=== PATIENT | male | born 1970 | race Caucasian/White ===

== ENCOUNTER 2018-04-18 17:51 | Inpatient (IN) | payer MEDICARE, MEDICAID ==
[2018-04-18 20:05] LABS: Hematocrit 45 % (42-52); Hemoglobin 15.3 g/dl (14.0-18.0); Mean Corpuscular HGB Conc 34 g/dl (31-36); Mean Corpuscular Hemoglobin 29 pg (27-31); Mean Corpuscular Volume 84 fL (80-94); Mean Platelet Volume 7.3 fL (7.4-10.4); Platelet Count 409 10^3/ul (150-450); Red Cell Distribution Width 13 % (10.5-15); White Blood Count 11.3 10^3/ul (3.5-10.8)
[2018-04-18 20:19] LABS: Albumin 3.9 g/dL (3.2-5.2); Albumin/Globulin Ratio 1.1 (1-3); BUN/Creatinine Ratio 14.7 (8-20); C Reactive Protein 81.32 mg/L (<8.01); Calcium 9.6 mg/dL (8.6-10.3); Globulin 3.5 g/dL (2-4); Potassium 4.7 mmol/L (3.5-5.0); Total Bilirubin 0.3 mg/dL (0.2-1.0); Total Protein 7.4 g/dL (6.4-8.9)
[2018-04-18] MEDS ORDERED: Piperacillin/Tazobac ADVAN(*) 3.375 GM in NS 0.9% 100 ML* 100 ML IVPB ONE (20:26)
[2018-04-18 20:27] LABS: ABS Basophils 0 10^3/ul (0-0.2); ABS Eosinophils 0.2 10^3/ul (0-0.6); ABS Monocytes 0.8 10^3/ul (0-0.8); ABS Neutrophils 8.1 10^3/ul (1.5-7.7); ABS Nucleated RBC 0 10^3/ul; Eosinophil % 2.2 %; Lymphocyte % 17.7 %; Nucleated Red Blood Cells % 0
[2018-04-18] MEDS ORDERED: Vancomycin(*) 1,000 MG in NS 0.9% 250 ML* 250 ML IVPB ONE (21:01)
[2018-04-18] MEDS ORDERED: Acetaminophen TAB* 325 MG PO PRN (21:03)
[2018-04-18] MEDS ORDERED: Ondansetron INJ* 2 MG/ML VIAL IV PRN (21:03)
[2018-04-18] MEDS ORDERED: Senna TAB PO PRN (21:03)
[2018-04-18] MEDS ORDERED: Al Hydrox/Mg Hydrox/Simet LIQ* 30 ML UDC PO PRN (21:03)
[2018-04-18] MEDS ORDERED: Docusate CAP* 100 MG PO PRN (21:03)
[2018-04-18] MEDS ORDERED: Dextrose 50% Syringe 50 ML* 25 GM/50 ML SYRINGE IV PUSH PRN (21:06)
[2018-04-18] MEDS ORDERED: traMADol TAB* 50 MG PO PRN (21:08)
[2018-04-18] MEDS ORDERED: Vancomycin(*) 0 MG in NS 0.9% 250 ML* 250 ML IVPB SCH (22:00)
[2018-04-18] MEDS: NS 0.9% 1000 ML* 1,000 ML IV SCH (22:58)
[2018-04-18] MEDS: Insulin GLARGINE(*) 1 UNITS UNIT SUBCUT SCH (22:58)
[2018-04-18] MEDS: Heparin VIAL(*) 5000 UNITS/ML VIAL (FIVE THOUSAND) SUBCUT SCH (22:59)
--- NOTE | 2018-04-18 23:00 | HP ---
CC: Jim Strong MD; Infectious Disease, Dr. Lopez; Orthopedic Surgery, Dr. Bai * HISTORY AND PHYSICAL: DATE OF ADMISSION: 04/18/18 TIME OF EVALUATION: 2099 PRIMARY CARE PHYSICIAN: Jim Strong M.D. CHIEF COMPLAINT: Left toe redness, pain, and swelling. HISTORY OF PRESENT ILLNESS: This is a 47-year-old male with a past medical history of diabetes, on insulin, and peripheral vascular disease who presents to the emergency room with worsening fourth toe on the right, redness, swelling , and drainage. The patient states he has a chronic wound on the plantar surface of his right foot that he has followed with Dr. Bai and Dr. Lopez for several years that has been stable. He states on the he noted that the toe was red and swollen and he states it was probably a problem earlier than that. That is when he first noticed it. He called Dr. Lopez's office on the and they started him on Levaquin. He began the Levaquin on the morning of the , but the redness and swelling continued and now it became black, foul smelling with purulent drainage, and he subsequently came to the emergency room for further evaluation. He states he no longer [facility], but follows Dr. Bai for his chronic wound. He denies any fevers; no chills; no nausea, vomiting, or diarrhea; no abdominal pain or shortness of breath; no urinary symptoms. He states his sugars have been well controlled and no issues with them. Otherwise, review of systems is negative. In the emergency room, the patient had labs. He was given Zosyn and referred to the hospital service for further evaluation. PAST MEDICAL HISTORY: 1. Peripheral vascular disease. 2. Diabetes, on insulin. 3. History of poor wound healing with toe amputation on each foot and a chronic plantar wound on his right foot, followed by Dr. Bai and Dr. Lopez. 4. Hypertension. 5. Gout. MEDICATIONS: 1. Levemir 30 mg subcu b.i.d. 2. Metformin 1000 mg p.o. b.i.d. 3. Lisinopril 40 mg p.o. daily. 4. Amlodipine 2.5 mg daily. 5. Indomethacin as needed. 6. Tramadol as needed. ALLERGIES: No known drug allergies. FAMILY HISTORY: Mother at age 67 from complications related to pancreatic cancer. Father's family history is unknown. SOCIAL HISTORY: The patient lives alone. He is unemployed, on disability. He has been cutting back on his smoking significantly. He states he smoked as much as 4 packs per day, now he is less than a pack per day. He has been smoking for almost 30 years. Rare alcohol use. He has no health care proxy at this time. He needs to think about it. Code status is full code. REVIEW OF SYSTEMS: A 14-point review of systems as mentioned in the HPI; otherwise, negative. PHYSICAL EXAMINATION GENERAL: In no acute distress, resting comfortably. VITAL SIGNS: Temp is 98.9, pulse rate 79, respiratory rate 15, oxygen saturation 99% on room air, and blood pressure 146/74. HEENT: Head: Normocephalic. Pupils: Equal, round, and reactive; anicteric. Oropharynx: Mucous membranes moist. NECK: No lymphadenopathy. RESPIRATORY: Clear to auscultation. No wheezes, rhonchi, or rales. CARDIAC: Regular rate and rhythm. Soft systolic murmur heard throughout. ABDOMEN: Soft, nontender, and nondistended. EXTREMITIES: The patient with his right lower extremity on the plantar surface has exposed fascia, about 6 x 4, circular open wound that has no surrounding erythema or drainage, that has some secondary granulation tissue at the edges. His fourth digit is necrotic, erythematous with purulent drainage, foul smelling with redness streaking up to the dorsum of his foot with some minimal edema. Pulses are palpated, able to move his extremities. NEUROLOGIC: Alert and oriented x3. No gross focal neurologic deficits. LABORATORY DATA: White count 11.3, hemoglobin 15.3, hematocrit 45, platelets 409. Sodium 136, potassium 4.7, chloride 102, bicarb 26, BUN 15, creatinine 102 , glucose 106, lactic acid 1.6, CRP is 81. ASSESSMENT: This is a 47-year-old male with a past medical history of chronic wounds with amputations in the past, with diabetes and peripheral vascular disease, who presents to the emergency room with worsening right fourth digit redness, swelling, and purulent drainage. 1. Fourth right toe redness, swelling, and drainage. Assessment: Concern for cellulitis with necrotic tissue. His plantar wound looks relatively healthy, but there is a question if these wounds have some sinus tract. Plan: We will switch him to cefepime 2 g IV b.i.d. We will start him on vancomycin and Flagyl. He did have a swab done down in the emergency room and we will follow up on that. We will consult Dr. Lopez and I spoke with Dr. Saleh, who is going to relay the message to Dr. Bai to see if he can evaluate the patient. I suspect he may need amputation. We will also order ABIs to look for any vascular disease that can be intervened upon. We will also place him on gentle IV fluids. 2. Diabetes. Per the patient, it is relatively well controlled. We will check a hemoglobin A1c, keep him on Lantus, hold his metformin, and place him on a lispro sliding scale. CHRONIC MEDICAL PROBLEMS: 1. Hypertension: Continue his lisinopril and amlodipine. 2. Chronic pain: Continue his tramadol as needed. 3. Fluids, electrolytes, and nutrition: Diabetic diet with gentle IV fluids. 4. DVT prophylaxis: The patient scores moderate risk. I will place him on heparin subcu t.i.d. 5. Code status: Full code. PATIENT TIME: Greater than 50 minutes spent doing the history and physical, greater than half the time spent in direct patient contact. [id number]/CPS #: [id number] MTDD
[2018-04-18] MEDS: traMADol TAB* 50 MG PO PRN (23:09)
[2018-04-19] MEDS ORDERED: Vancomycin per Pharmacy* NOTE FOLLOW UP PRN (00:05)
[2018-04-19] MEDS: metroNIDAZOLE IV 500 MG/100ML* 500 MG/100 ML BAG IVPB SCH ×3 (00:49→23:28)
--- NOTE | 2018-04-19 02:44 | ED ---
Lower Extremity - HPI Summary HPI Summary: Pt with hx of chronic DM foot ulcer under ball of right foot c/o new onset purulent d/c, redness and black tissue to 4th digit of rt foot x 2 days. Pt on levaquin x [address] Lynn. Pt wound also followed by followed by orthopedics Dr. Aragon, who last saw wound 4 weeks ago. Patient denies fever, cough, sore throat, CP, SOB, N/V/D, abdominal pain, change in urine, change in BM. Medical history is DM, HTN. . - History of Current Complaint Chief Complaint: EDExtremityLower Stated Complaint: POSS FOOT INF Time Seen by Provider: 04/18/18 18:50 Hx Obtained From: Patient Mechanism Of Injury: Other Onset/Duration: Still Present Severity Initially: Mild Severity Currently: Mild Pain Intensity: 2 Pain Scale Used: 0-10 Numeric Timing: Intermittent Location: Is Discrete @ Character Of Pain: Dull Associated Signs And Symptoms: Positive: Redness Aggravating Factor(s): Standing, Ambulation Alleviating Factor(s): Rest Able to Bear Weight: Yes - Allergies/Home Medications Allergies/Adverse Reactions: Allergies Allergy/AdvReac Type Severity Reaction Status Date / Time No Known Allergies Allergy Verified 03/19/14 13:24 PMH/Surg Hx/FS Hx/Imm Hx Endocrine/Hematology History: Reports: Hx Diabetes - metformin Cardiovascular History: Reports: Hx Hypertension Denies: Hx Pacemaker/ICD Respiratory History: Denies: Hx Asthma History: Denies: Hx Dialysis, Hx Renal Disease Sensory History: Denies: Hx Contacts or Glasses, Hx Hearing Aid Opthamlomology History: Denies: Hx Contacts or Glasses EENT History: Denies: Hx Deafness Psychiatric History: Denies: Hx Autism, Hx Panic Disorder - Surgical History Surgery Procedure, Year, and Place: carpal tunnel bilat; left knee arthroscopy; cataract right eye ; tubes in ears as a child ; tonsils ; bilateral amputation to a toe ; Infectious Disease History: Yes Infectious Disease History: Denies: Hx Clostridium Difficile, Hx Hepatitis, Hx Human Immunodeficiency Virus (HIV), Hx of Known/Suspected MRSA, Hx Shingles, Hx Tuberculosis, Hx Known/ Suspected VRE, Hx Known/Suspected VRSA, History Other Infectious Disease, Traveled Outside the [place] in Last 30 Days - Family History Known Family History: Positive: Unknown - Social History Alcohol Use: Rare Substance Use Type: Reports: None Smoking Status (MU): Light Every Day Tobacco Smoker Amount Used/How Often: 1 ppd Have You Smoked in the Last Year: No Review of Systems Constitutional: Negative Eyes: Negative ENT: Negative Cardiovascular: Negative Respiratory: Negative Gastrointestinal: Negative Genitourinary: Negative Musculoskeletal: Other Skin: Other Neurological: Negative Psychological: Normal All Other Systems Reviewed And Are Negative: Yes Physical Exam - Summary Physical Exam Summary: new wound involves Purulent discharge, redness, necrosis noted to fourth digit of right foot. chronic foot ulcer under ball of right foot appears clean and dry. Sensation intact distally on the fourth digit. Third toe of right foot removed ain prior amputation. Triage Information Reviewed: Yes Vital Signs On Initial Exam: Initial Vitals Temp Pulse Resp BP Pulse Ox 98.9 F 79 15 146/74 99 04/18/18 18:13 04/18/18 18:13 04/18/18 18:13 04/18/18 18:13 04/18/18 18:13 Vital Signs Reviewed: Yes Appearance: Positive: Well-Appearing Skin: Positive: Warm Head/Face: Positive: Normal Head/Face Inspection Eyes: Positive: Normal Neck: Positive: Supple Respiratory/Lung Sounds: Positive: Clear to Auscultation Cardiovascular: Positive: Normal Abdomen Description: Positive: Nontender Musculoskeletal: Positive: Normal Neurological: Positive: Normal Psychiatric: Positive: Normal AVPU Assessment: Alert - Val Coma Scale Best Eye Response: 4 - Spontaneous Best Motor Response: 6 - Obeys Commands Best Verbal Response: 5 - Oriented Coma Scale Total: 15 Diagnostics - Vital Signs Vital Signs Temp Pulse Resp BP Pulse Ox 04/18/18 18:13 98.9 F 79 15 146/74 99 - Laboratory Lab Results: Lab Results 04/18/18 04/18/18 04/18/18 Range/Units 19:51 19:51 19:51 WBC 11.3 H (3.5-10.8) 10^3/ul RBC 5.30 (4.00-5.40) 10^6/ul Hgb 15.3 (14.0-18.0) g/dl Hct 45 (42-52) % MCV 84 (80-94) fL MCH 29 (27-31) pg MCHC 34 (31-36) g/dl RDW 13 (10.5-15) % Plt Count 409 (150-450) 10^3/ul MPV 7.3 L (7.4-10.4) fL Neut % (Auto) 72.2 % Lymph % (Auto) 17.7 % [place] % (Auto) 7.5 % Eos % (Auto) 2.2 % Baso % (Auto) 0.4 % Absolute Neuts (auto) 8.1 H (1.5-7.7) 10^3/ul Absolute Lymphs (auto) 2.0 (1.0-4.8) 10^3/ul Absolute Monos (auto) 0.8 (0-0.8) 10^3/ul Absolute Eos (auto) 0.2 (0-0.6) 10^3/ul Absolute Basos (auto) 0 (0-0.2) 10^3/ul Absolute Nucleated RBC 0 10^3/ul Nucleated RBC % 0 Sodium 136 (135-145) mmol/L Potassium 4.7 (3.5-5.0) mmol/L Chloride 102 (101-111) mmol/L Carbon Dioxide 26 (22-32) mmol/L Anion Gap 8 (2-11) mmol/L BUN 15 (6-24) mg/dL Creatinine 1.02 (0.67-1.17) mg/dL Est GFR ( Amer) 94.3 (>60) Est GFR (Non-Af Amer) 78.0 (>60) BUN/Creatinine Ratio 14.7 (8-20) Glucose 106 H (70-100) mg/dL Hemoglobin A1c (4.0-5.6) % Lactic Acid 1.6 (0.5-2.0) mmol/L Calcium 9.6 (8.6-10.3) mg/dL Total Bilirubin 0.30 (0.2-1.0) mg/dL AST 13 (13-39) U/L ALT 19 (7-52) U/L Alkaline Phosphatase 86 (34-104) U/L C-Reactive Protein 81.32 H (<8.01) mg/L Total Protein 7.4 (6.4-8.9) g/dL Albumin 3.9 (3.2-5.2) g/dL Globulin 3.5 (2-4) g/dL Albumin/Globulin Ratio 1.1 (1-3) 12/20/18 Range/Units 19:51 WBC (3.5-10.8) 10^3/ul RBC (4.00-5.40) 10^6/ul Hgb (14.0-18.0) g/dl Hct (42-52) % MCV (80-94) fL MCH (27-31) pg MCHC (31-36) g/dl RDW (10.5-15) % Plt Count (150-450) 10^3/ul MPV (7.4-10.4) fL Neut % (Auto) % Lymph % (Auto) % [place] % (Auto) % Eos % (Auto) % Baso % (Auto) % Absolute Neuts (auto) (1.5-7.7) 10^3/ul Absolute Lymphs (auto) (1.0-4.8) 10^3/ul Absolute Monos (auto) (0-0.8) 10^3/ul Absolute Eos (auto) (0-0.6) 10^3/ul Absolute Basos (auto) (0-0.2) 10^3/ul Absolute Nucleated RBC 10^3/ul Nucleated RBC % Sodium (135-145) mmol/L Potassium (3.5-5.0) mmol/L Chloride (101-111) mmol/L Carbon Dioxide (22-32) mmol/L Anion Gap (2-11) mmol/L BUN (6-24) mg/dL Creatinine (0.67-1.17) mg/dL Est GFR ( Amer) (>60) Est GFR (Non-Af Amer) (>60) BUN/Creatinine Ratio (8-20) Glucose (70-100) mg/dL Hemoglobin A1c 8.8 H (4.0-5.6) % Lactic Acid (0.5-2.0) mmol/L Calcium (8.6-10.3) mg/dL Total Bilirubin (0.2-1.0) mg/dL AST (13-39) U/L ALT (7-52) U/L Alkaline Phosphatase (34-104) U/L C-Reactive Protein (<8.01) mg/L Total Protein (6.4-8.9) g/dL Albumin (3.2-5.2) g/dL Globulin (2-4) g/dL Albumin/Globulin Ratio (1-3) Result Diagrams: 04/18/18 19:51 04/18/18 19:51 Lab Statement: Any lab studies that have been ordered have been reviewed, and results considered in the medical decision making process. Lower Extremity Course/Dx - Course Course Of Treatment: Pt with hx of chronic DM foot ulcer under ball of right foot c/o new onset purulent d/c, redness and black tissue to 4th digit of rt foot x 2 days. Pt on levaquin x [address] Lynn. Pt wound also followed by followed by orthopedics Dr. Aragon, who last saw wound 4 weeks ago. Patient denies fever, cough, sore throat, CP, SOB, N/V/D, abdominal pain, change in urine, change in BM. Medical history is DM, HTN. . Physical exam: new wound involves Purulent discharge, redness, necrosis noted to fourth digit of right foot. chronic foot ulcer under ball of right foot appears clean and dry. Sensation intact distally on the fourth digit. Third toe of right foot removed ain prior amputation. Vital signs within normal limits. Elevated WBC 11.2. CRP 81. Labs otherwise unremarkable. xray foot has no acute fracture, possible osteomyelitis. Will be read by radiology in am. started on zosyn here in ED. admitted to hospitalist in stable condition for further eval. - Diagnoses Provider Diagnoses: Failure of outpatient treatment, Diabetic foot infection Discharge - Sign-Out/Discharge Documenting (check all that apply): Patient Departure - Discharge Plan Condition: Stable Disposition: ADMITTED TO [facility] - Billing Disposition and Condition Condition: STABLE Disposition: Admitted to [facility]
[2018-04-19] MEDS: Vancomycin(*) 1,250 MG in NS 0.9% 250 ML* 250 ML IVPB SCH ×3 (04:02→21:02)
[2018-04-19] MEDS: Heparin VIAL(*) 5000 UNITS/ML VIAL (FIVE THOUSAND) SUBCUT SCH ×4 (05:33→21:20)
[2018-04-19] MEDS: traMADol TAB* 50 MG PO PRN ×3 (05:34→21:16)
[2018-04-19] MEDS: Cefepime 2 GM in Dextrose(*) 2 GM/50 ML BAG IV SCH ×2 (05:57→18:19)
[2018-04-19 05:58] LABS: ABS Basophils 0 10^3/ul (0-0.2); ABS Eosinophils 0.2 10^3/ul (0-0.6); ABS Lymphocytes 2.4 10^3/ul (1.0-4.8); ABS Monocytes 1.3 10^3/ul (0-0.8); ABS Neutrophils 6.4 10^3/ul (1.5-7.7); ABS Nucleated RBC 0 10^3/ul; Eosinophil % 2.3 %; Hematocrit 39 % (42-52); Hemoglobin 13.3 g/dl (14.0-18.0); Lymphocyte % 23.3 %; Mean Corpuscular HGB Conc 35 g/dl (31-36); Mean Corpuscular Hemoglobin 29 pg (27-31); Mean Corpuscular Volume 85 fL (80-94); Mean Platelet Volume 7.3 fL (7.4-10.4); Nucleated Red Blood Cells % 0; Platelet Count 333 10^3/ul (150-450); Red Blood Count 4.54 10^6/ul (4.00-5.40); Red Cell Distribution Width 13 % (10.5-15); White Blood Count 10.4 10^3/ul (3.5-10.8)
[2018-04-19 06:15] LABS: BUN/Creatinine Ratio 14.5 (8-20); Calcium 8.8 mg/dL (8.6-10.3); EGFR Non-African American 66.5 (>60); Potassium 4.4 mmol/L (3.5-5.0)
[2018-04-19] MEDS: Insulin LISPRO* 1 UNITS UNIT SUBCUT SCH ×3 (09:02→18:18)
[2018-04-19] MEDS: Insulin GLARGINE(*) 1 UNITS UNIT SUBCUT SCH ×2 (09:03→21:01)
[2018-04-19] MEDS: amLODIPine TAB* 5 MG PO SCH (09:03)
[2018-04-19] MEDS: Lisinopril TAB* 10 MG PO SCH (09:03)
--- NOTE | 2018-04-19 10:12 | PN ---
Progress Note - Progress Note Date of Service: 04/18/18 Note: Pt. admitted last night for diabetic foot infection. Final radiology read today is constant with osteomyelitis. Pt. was admitted and receiving IV antibx. No change in treatment needed.
[2018-04-19] MEDS ORDERED: Gadoteridol* (CONTRAST) 279.3 MG/ML 10 ML IV ONE (14:31)
[2018-04-19] MEDS: NS 0.9% 1000 ML* 1,000 ML IV SCH (15:52)
--- NOTE | 2018-04-19 17:14 | PN ---
Subjective Date of Service: 04/19/18 Interval History: Pt is feeling well. He has pain 5/10 intermittently in the R foot. He continues to notice foul smell from the foot. No diarrhea. He would really like to be able to go home for Jose Armando. Objective Active Medications: Acetaminophen (Tylenol Tab*) 650 mg PO Q4H PRN PRN Reason: FEVER/PAIN Al Hydrox/Mg Hydrox/Simethicone (Maalox Plus*) 30 ml PO Q6H PRN PRN Reason: INDIGESTION Amlodipine Besylate (Norvasc Tab*) 2.5 mg PO DAILY [facility] Last Admin: 04/19/18 09:03 Dose: 2.5 mg Dextrose (D50w Syringe 50 Ml*) 12.5 gm IV PUSH .FOR FS < 60 - SS PRN PRN Reason: FS < 60 Docusate Sodium (Colace Cap*) 100 mg PO BID PRN PRN Reason: CONSTIPATION Heparin Sodium (Porcine) (Heparin Vial(*)) 5,000 units SUBCUT Q8HR [facility] Last Admin: 04/19/18 12:43 Dose: Not Given Cefepime HCl (Maxipime 2 Gm In Dextrose Duplex (*)) 2 gm in 50 mls @ 100 mls/ hr IV Q12H [facility] Last Admin: 04/19/18 05:57 Dose: 100 mls/hr Metronidazole/Sodium Chloride (Flagyl 500 Mg Ivpb*) 500 mg in 100 mls @ 100 mls /hr IVPB Q12H [facility] Last Admin: 04/19/18 09:19 Dose: 100 mls/hr Sodium Chloride (Ns 0.9% 1000 Ml*) 1,000 mls @ 100 mls/hr IV PER RATE [facility] Last Admin: 04/19/18 15:52 Dose: 100 mls/hr Vancomycin HCl 1,250 mg/ (Sodium Chloride) 250 mls @ 166.667 mls/hr IVPB Q8H [facility] Last Admin: 04/19/18 12:10 Dose: 166.667 mls/hr Insulin Glargine (Lantus(*)) 30 units SUBCUT BID [facility] Last Admin: 04/19/18 09:03 Dose: 30 units Insulin Human Lispro (Humalog*) 0 units SUBCUT AC [facility]; Protocol Last Admin: 04/19/18 12:41 Dose: 7 units Lisinopril (Prinivil Tab*) 40 mg PO DAILY [facility] Last Admin: 04/19/18 09:03 Dose: 40 mg Ondansetron HCl (Zofran Inj*) 4 mg IV Q4H PRN PRN Reason: NAUSEA/VOMITING Pharmacy Consult (Vancomycin Per Pharmacy*) 1 note FOLLOW UP . PRN PRN Reason: PER PROTOCOL Pharmacy Profile Note (Vancomycin Trough Check) 1 note FOLLOW UP .ENTER TIME ONE Stop: 04/20/18 11:31 Senna (Senokot Tab*) 1 tab PO BID PRN PRN Reason: CONSTIPATION Tramadol HCl (Ultram*) 100 mg PO Q6HR PRN PRN Reason: PAIN Last Admin: 04/19/18 12:41 Dose: 100 mg Vital Signs - 8 hr 04/19/18 04/19/18 04/19/18 11:26 12:41 15:11 Temperature 98.4 F Pulse Rate 70 Respiratory 17 16 16 Rate Blood Pressure 128/50 (mmHg) O2 Sat by Pulse 98 Oximetry 04/19/18 15:19 Temperature 97.0 F Pulse Rate 67 Respiratory 16 Rate Blood Pressure 139/66 (mmHg) O2 Sat by Pulse 94 Oximetry Oxygen Devices in Use Now: None Appearance: Middle aged male sitting up in bed, NAD Eyes: No Scleral Icterus Ears/Nose/Mouth/Throat: Mucous Membranes Moist Respiratory: Symmetrical Chest Expansion and Respiratory Effort, Clear to Auscultation Cardiovascular: NL Sounds; No Murmurs; No JVD, RRR, No Edema Abdominal: NL Sounds; No Tenderness; No Distention Extremities: No Clubbing, Cyanosis Skin: - - wound to plantar surface of R foot with granulation tissue noted, 3rd toe (formerly the 4th toe but the 3rd was amputated) is purple with the medial aspect black, there is purulent drainage noted from the proximal end of the toe Neurological: Alert and Oriented x 3 Result Diagrams: 04/19/18 05:27 04/20/18 06:38 Additional Lab and Data: Lab Results 04/18/18 04/18/18 04/18/18 Range/Units 19:51 19:51 19:51 WBC 11.3 H (3.5-10.8) 10^3/ul RBC 5.30 (4.00-5.40) 10^6/ul Hgb 15.3 (14.0-18.0) g/dl Hct 45 (42-52) % MCV 84 (80-94) fL MCH 29 (27-31) pg MCHC 34 (31-36) g/dl RDW 13 (10.5-15) % Plt Count 409 (150-450) 10^3/ul MPV 7.3 L (7.4-10.4) fL Neut % (Auto) 72.2 % Lymph % (Auto) 17.7 % [place] % (Auto) 7.5 % Eos % (Auto) 2.2 % Baso % (Auto) 0.4 % Absolute Neuts (auto) 8.1 H (1.5-7.7) 10^3/ul Absolute Lymphs (auto) 2.0 (1.0-4.8) 10^3/ul Absolute Monos (auto) 0.8 (0-0.8) 10^3/ul Absolute Eos (auto) 0.2 (0-0.6) 10^3/ul Absolute Basos (auto) 0 (0-0.2) 10^3/ul Absolute Nucleated RBC 0 10^3/ul Nucleated RBC % 0 Sodium 136 (135-145) mmol/L Potassium 4.7 (3.5-5.0) mmol/L Chloride 102 (101-111) mmol/L Carbon Dioxide 26 (22-32) mmol/L Anion Gap 8 (2-11) mmol/L BUN 15 (6-24) mg/dL Creatinine 1.02 (0.67-1.17) mg/dL Est GFR ( Amer) 94.3 (>60) Est GFR (Non-Af Amer) 78.0 (>60) BUN/Creatinine Ratio 14.7 (8-20) Glucose 106 H (70-100) mg/dL Hemoglobin A1c (4.0-5.6) % Lactic Acid 1.6 (0.5-2.0) mmol/L Calcium 9.6 (8.6-10.3) mg/dL Total Bilirubin 0.30 (0.2-1.0) mg/dL AST 13 (13-39) U/L ALT 19 (7-52) U/L Alkaline Phosphatase 86 (34-104) U/L C-Reactive Protein 81.32 H (<8.01) mg/L Total Protein 7.4 (6.4-8.9) g/dL Albumin 3.9 (3.2-5.2) g/dL Globulin 3.5 (2-4) g/dL Albumin/Globulin Ratio 1.1 (1-3) 04/18/18 Range/Units 19:51 WBC (3.5-10.8) 10^3/ul RBC (4.00-5.40) 10^6/ul Hgb (14.0-18.0) g/dl Hct (42-52) % MCV (80-94) fL MCH (27-31) pg MCHC (31-36) g/dl RDW (10.5-15) % Plt Count (150-450) 10^3/ul MPV (7.4-10.4) fL Neut % (Auto) % Lymph % (Auto) % [place] % (Auto) % Eos % (Auto) % Baso % (Auto) % Absolute Neuts (auto) (1.5-7.7) 10^3/ul Absolute Lymphs (auto) (1.0-4.8) 10^3/ul Absolute Monos (auto) (0-0.8) 10^3/ul Absolute Eos (auto) (0-0.6) 10^3/ul Absolute Basos (auto) (0-0.2) 10^3/ul Absolute Nucleated RBC 10^3/ul Nucleated RBC % Sodium (135-145) mmol/L Potassium (3.5-5.0) mmol/L Chloride (101-111) mmol/L Carbon Dioxide (22-32) mmol/L Anion Gap (2-11) mmol/L BUN (6-24) mg/dL Creatinine (0.67-1.17) mg/dL Est GFR ( Amer) (>60) Est GFR (Non-Af Amer) (>60) BUN/Creatinine Ratio (8-20) Glucose (70-100) mg/dL Hemoglobin A1c 8.8 H (4.0-5.6) % Lactic Acid (0.5-2.0) mmol/L Calcium (8.6-10.3) mg/dL Total Bilirubin (0.2-1.0) mg/dL AST (13-39) U/L ALT (7-52) U/L Alkaline Phosphatase (34-104) U/L C-Reactive Protein (<8.01) mg/L Total Protein (6.4-8.9) g/dL Albumin (3.2-5.2) g/dL Globulin (2-4) g/dL Albumin/Globulin Ratio (1-3) Microbiology and Other Data: Microbiology 04/18/18 19:24 Skin and Soft Tissue MRSA/MSSA (PCR - Final Foot Right Mrsa Negative S.aureus Negative Gram Stain - Final Wound Culture - Preliminary Corynebacterium Striatum Assess/Plan/Problems-Billing Mr Medrano is a 47 yo M who has a h/o DM, chronic R foot wound with known underlying osteomyelitis who presented to the ER with c/o an infected toe. - Patient Problems (1) Chronic diabetic ulcer of right foot determined by examination Current Visit: Yes Status: Acute Code(s): E11.621 - TYPE 2 DIABETES MELLITUS WITH FOOT ULCER; L97.519 - NON-PRS CHRONIC ULCER OTH PRT RIGHT FOOT W UNSP SEVERITY SNOMED Code(s): 482318129 Comment: Pt has had a chronic wound on the plantar surface of the R foot. He has followed with Dr. Lopez for quite some time. The patient now has an acute on chronic infection. He met with Dr. Greenberg this evening and plan is for TMA tomorrow. Will need cultures obtained in OR, await culture data and likely home on 04/22 with Abx (ideally IV but may need to be oral for a few days then have Dr. Lopez set up IV Abx as outpatient). (2) Chronic osteomyelitis of right foot Current Visit: Yes Status: Acute Code(s): M86.671 - OTHER CHRONIC OSTEOMYELITIS, RIGHT ANKLE AND FOOT SNOMED Code(s): 8314659652985158 Comment: As above plan for TMA today. (3) Type II diabetes mellitus Current Visit: Yes Status: Acute Comment: Sugars are under fair control. Continue current dose of lantus. (4) PAD (peripheral artery disease) Current Visit: Yes Status: Acute Code(s): I73.9 - PERIPHERAL VASCULAR DISEASE, UNSPECIFIED SNOMED Code(s): 289330212 Comment: JOHNSON done about 1 month ago. L JOHNSON apppears to be worse than R. Follow up outpatient. (5) HTN (hypertension) Current Visit: Yes Status: Acute Code(s): I10 - ESSENTIAL (PRIMARY) HYPERTENSION SNOMED Code(s): 73337866 Comment: BP mildly elevated. Continue amlodipine and lisinopril. (6) DVT prophylaxis Current Visit: Yes Status: Acute Code(s): SVZ4919 - SNOMED Code(s): 005248577 Comment: SQ heparin (7) Full code status Current Visit: Yes Status: Acute Code(s): Z78.9 - OTHER SPECIFIED HEALTH STATUS SNOMED Code(s): 657005684
--- NOTE | 2018-04-19 19:09 | OP ---
Operative Report - Blank - Operative Report Date of Operation: 04/19/18 Note: Orthopedic Surgery Consultation Date: 04/19/2018 Requesting Service: ER Chief Complaint: Right foot infection History: Ra is a 47-year-old man who is well known to me. I have been following him for a right foot diabetic foot ulcer and infection. He has been doing wound care. We have had many discussions about potentially needing an amputation at some point. He reports that a few days ago his right fourth toe started getting red and swollen. It quickly worsened so he came into the emergency room and was started on IV antibiotics. He has had no improvement yet. He also reports there has been purulence from his plantar foot wound. Review of Systems: Negative for fever, recent visual changes, difficulty swallowing, chest pain, shortness of breath, abdominal pain, hematuria, easy bruising, diffuse weakness or lack of coordination, and diffuse rash. PMH: Insulin-dependent diabetic, peripheral vascular disease, hypertension, gout PSH: Right third toe amputation, tonsillectomy, carpal tunnel release and knee arthroscopy Medications:Levemir, metformin, lisinopril, amlodipine, indomethacin when necessary, tramadol when necessary Allergies: no known drug allergies SH: Lives at home with his daughter. Unemployed, on disability. He is a smoker. Rare alcohol use. FH: Cancer Physical Examination: Constitutional: Temp Pulse Resp BP Pulse Ox 97.0 F 67 16 139/66 94 04/19/18 15:19 04/19/18 15:19 04/19/18 15:19 04/19/18 15:19 04/19/18 15:19 General appearance is healthy and non-septic in no acute distress. Cardiovascular: Pulse examination demonstrates palpable pedal pulses with brisk capillary refill. There are no varicosities. Heart with a regular rate and rhythm. Lung sounds clear bilaterally. Abdomen: Soft and nontender Lymphatic: No lymphadenopathy appreciated. Skin: Bilateral upper and lower extremity examination demonstrates no ulcerative lesions aside from those of the involved extremity detailed below, if present. Psychiatric / Neurological: Appropriate affect. Alert and oriented to person, place and time. There is no significant abnormality in coordination appreciated. Normoreflexive deep tendon reflex of the affected extremity. Musculoskeletal: Bilateral upper extremities and contralateral lower extremity show full range of motion with no evidence of instability and no tenderness with palpation and 5 /5 strength. There is no gross deformity. There is 5/5 motor strength and impaired light touch sensation. There is swelling and erythema about the forefoot. The fourth toe is quite swollen and erythematous with a large necrotic area immediately. It has purulence and is malodorous. There is also purulence expressed from his plantar foot wound. 5-40 ankle ROM, stable. Silfverskiold test is positive Imaging: X-raysand MRI were reviewed. these show osteomyelitis of the fourth toe , distal second metatarsal and second toe, great toe. Labs: WBC 10.4 HCT 39 Platelets 333 Cr 1.17 CRP 81.32 Impression and Plan: Right forefoot infection in the setting of chronic plantar foot wound and osteomyelitis, in a patient with diabetic neuropathy. This has acutely worsened and the fourth toe especially, is large and swollen, erythematous, purulent, malodorous, and becoming necrotic. I had a long discussion with Ra about his options. We included nonoperative treatment with IV antibiotics, a fourth toe/ray amputation, or a transmetatarsal amputation. We had a long discussion about the risks and benefits, as well as the pros and cons of each. although he has been very reticent to have an amputation, he expressed to me that he does understand now that this is not going to get better. I would have to agree with him, especially given the appearance of the fourth toe. We again discussed, as we have many times before , that if this continued to move proximally, he would lose the option of a transmetatarsal amputation. After a long discussion, he did expressed his desire to move forward with the transmetatarsal amputation. I would also perform a gastrocnemius recession to help prevent overloading at the stump and recurrent ulceration. We did discuss that he has risk factors for poor wound healing, including diabetes, smoking, and peripheral vascular disease. He understood this and assured me he would rest and elevate while the wound is healing. Please keep him n.p.o. at midnight and we will plan on surgery tomorrow. Continue IV antibiotics for now. Jesus Bai MD
[2018-04-19] MEDS: Indomethacin CAP* 50 MG PO ONE (23:03)
[2018-04-20] MEDS: Vancomycin(*) 1,250 MG in NS 0.9% 250 ML* 250 ML IVPB SCH ×3 (04:33→21:10)
[2018-04-20] MEDS: Heparin VIAL(*) 5000 UNITS/ML VIAL (FIVE THOUSAND) SUBCUT SCH ×4 (05:59→21:10)
[2018-04-20] MEDS: Cefepime 2 GM in Dextrose(*) 2 GM/50 ML BAG IV SCH ×2 (06:09→17:51)
[2018-04-20] MEDS: NS 0.9% 1000 ML* 1,000 ML IV SCH ×2 (06:36→17:51)
[2018-04-20 07:23] LABS: EGFR Non-African American 82.6 (>60)
[2018-04-20] MEDS: Insulin GLARGINE(*) 1 UNITS UNIT SUBCUT SCH ×2 (08:05→21:09)
[2018-04-20] MEDS: Lisinopril TAB* 10 MG PO SCH (08:06)
[2018-04-20] MEDS: traMADol TAB* 50 MG PO PRN ×2 (08:06→18:08)
[2018-04-20] MEDS: amLODIPine TAB* 5 MG PO SCH (08:06)
[2018-04-20] MEDS: Insulin LISPRO* 1 UNITS UNIT SUBCUT SCH ×4 (08:09→18:25)
--- NOTE | 2018-04-20 09:30 | PN ---
Subjective Date of Service: 04/20/18 Interval History: Pt is feeling ok. He is anxiously awaiting going to the OR. He states the pain in his foot is a little more intense this AM. He states it is a burning discomfort. He does not want any more pain medication at this time. Objective Active Medications: Acetaminophen (Tylenol Tab*) 650 mg PO Q4H PRN PRN Reason: FEVER/PAIN Al Hydrox/Mg Hydrox/Simethicone (Maalox Plus*) 30 ml PO Q6H PRN PRN Reason: INDIGESTION Amlodipine Besylate (Norvasc Tab*) 2.5 mg PO DAILY [facility] Last Admin: 04/20/18 08:06 Dose: 2.5 mg Dextrose (D50w Syringe 50 Ml*) 12.5 gm IV PUSH .FOR FS < 60 - SS PRN PRN Reason: FS < 60 Docusate Sodium (Colace Cap*) 100 mg PO BID PRN PRN Reason: CONSTIPATION Heparin Sodium (Porcine) (Heparin Vial(*)) 5,000 units SUBCUT Q8HR [facility] Last Admin: 04/20/18 05:59 Dose: Not Given Cefepime HCl (Maxipime 2 Gm In Dextrose Duplex (*)) 2 gm in 50 mls @ 100 mls/ hr IV Q12H [facility] Last Admin: 04/20/18 06:09 Dose: 100 mls/hr Metronidazole/Sodium Chloride (Flagyl 500 Mg Ivpb*) 500 mg in 100 mls @ 100 mls /hr IVPB Q12H [facility] Last Admin: 04/19/18 23:28 Dose: 100 mls/hr Sodium Chloride (Ns 0.9% 1000 Ml*) 1,000 mls @ 100 mls/hr IV PER RATE [facility] Last Admin: 04/20/18 06:36 Dose: 100 mls/hr Vancomycin HCl 1,250 mg/ (Sodium Chloride) 250 mls @ 166.667 mls/hr IVPB Q8H [facility] Last Admin: 04/20/18 04:33 Dose: 166.667 mls/hr Indomethacin (Indocin Cap*) 50 mg PO ONCE ONE Stop: 04/20/18 22:04 Last Admin: 04/19/18 23:03 Dose: 50 mg Insulin Glargine (Lantus(*)) 30 units SUBCUT BID [facility] Last Admin: 04/20/18 08:05 Dose: 30 units Insulin Human Lispro (Humalog*) 0 units SUBCUT AC [facility]; Protocol Last Admin: 04/20/18 08:09 Dose: Not Given Lisinopril (Prinivil Tab*) 40 mg PO DAILY [facility] Last Admin: 04/20/18 08:06 Dose: 40 mg Ondansetron HCl (Zofran Inj*) 4 mg IV Q4H PRN PRN Reason: NAUSEA/VOMITING Pharmacy Consult (Vancomycin Per Pharmacy*) 1 note FOLLOW UP . PRN PRN Reason: PER PROTOCOL Pharmacy Profile Note (Vancomycin Trough Check) 1 note FOLLOW UP .ENTER TIME ONE Stop: 04/20/18 11:31 Senna (Senokot Tab*) 1 tab PO BID PRN PRN Reason: CONSTIPATION Last Admin: 04/20/18 08:06 Dose: 1 tab Tramadol HCl (Ultram*) 100 mg PO Q6HR PRN PRN Reason: PAIN Last Admin: 04/20/18 08:06 Dose: 100 mg Vital Signs - 8 hr 04/20/18 04/20/18 04/20/18 02:46 07:51 08:00 Temperature 97.4 F 98.9 F Pulse Rate 59 80 Respiratory 19 16 16 Rate Blood Pressure 150/61 130/74 (mmHg) O2 Sat by Pulse 97 92 Oximetry 04/20/18 08:06 Temperature Pulse Rate Respiratory 18 Rate Blood Pressure (mmHg) O2 Sat by Pulse Oximetry Oxygen Devices in Use Now: None Appearance: Middle aged male sitting up in bed, NAD Eyes: No Scleral Icterus Ears/Nose/Mouth/Throat: Mucous Membranes Moist Respiratory: Symmetrical Chest Expansion and Respiratory Effort, Clear to Auscultation Cardiovascular: NL Sounds; No Murmurs; No JVD, RRR, No Edema Abdominal: NL Sounds; No Tenderness; No Distention Extremities: No Clubbing, Cyanosis Skin: - - ulcer on R foot not inspected today Neurological: Alert and Oriented x 3 Result Diagrams: 04/19/18 05:27 04/20/18 06:38 Additional Lab and Data: Lab Results 04/18/18 04/18/18 04/18/18 Range/Units 19:51 19:51 19:51 WBC 11.3 H (3.5-10.8) 10^3/ul RBC 5.30 (4.00-5.40) 10^6/ul Hgb 15.3 (14.0-18.0) g/dl Hct 45 (42-52) % MCV 84 (80-94) fL MCH 29 (27-31) pg MCHC 34 (31-36) g/dl RDW 13 (10.5-15) % Plt Count 409 (150-450) 10^3/ul MPV 7.3 L (7.4-10.4) fL Neut % (Auto) 72.2 % Lymph % (Auto) 17.7 % Dunn % (Auto) 7.5 % Eos % (Auto) 2.2 % Baso % (Auto) 0.4 % Absolute Neuts (auto) 8.1 H (1.5-7.7) 10^3/ul Absolute Lymphs (auto) 2.0 (1.0-4.8) 10^3/ul Absolute Monos (auto) 0.8 (0-0.8) 10^3/ul Absolute Eos (auto) 0.2 (0-0.6) 10^3/ul Absolute Basos (auto) 0 (0-0.2) 10^3/ul Absolute Nucleated RBC 0 10^3/ul Nucleated RBC % 0 Sodium 136 (135-145) mmol/L Potassium 4.7 (3.5-5.0) mmol/L Chloride 102 (101-111) mmol/L Carbon Dioxide 26 (22-32) mmol/L Anion Gap 8 (2-11) mmol/L BUN 15 (6-24) mg/dL Creatinine 1.02 (0.67-1.17) mg/dL Est GFR ( Amer) 94.3 (>60) Est GFR (Non-Af Amer) 78.0 (>60) BUN/Creatinine Ratio 14.7 (8-20) Glucose 106 H (70-100) mg/dL Hemoglobin A1c (4.0-5.6) % Lactic Acid 1.6 (0.5-2.0) mmol/L Calcium 9.6 (8.6-10.3) mg/dL Total Bilirubin 0.30 (0.2-1.0) mg/dL AST 13 (13-39) U/L ALT 19 (7-52) U/L Alkaline Phosphatase 86 (34-104) U/L C-Reactive Protein 81.32 H (<8.01) mg/L Total Protein 7.4 (6.4-8.9) g/dL Albumin 3.9 (3.2-5.2) g/dL Globulin 3.5 (2-4) g/dL Albumin/Globulin Ratio 1.1 (1-3) 04/18/18 Range/Units 19:51 WBC (3.5-10.8) 10^3/ul RBC (4.00-5.40) 10^6/ul Hgb (14.0-18.0) g/dl Hct (42-52) % MCV (80-94) fL MCH (27-31) pg MCHC (31-36) g/dl RDW (10.5-15) % Plt Count (150-450) 10^3/ul MPV (7.4-10.4) fL Neut % (Auto) % Lymph % (Auto) % Dunn % (Auto) % Eos % (Auto) % Baso % (Auto) % Absolute Neuts (auto) (1.5-7.7) 10^3/ul Absolute Lymphs (auto) (1.0-4.8) 10^3/ul Absolute Monos (auto) (0-0.8) 10^3/ul Absolute Eos (auto) (0-0.6) 10^3/ul Absolute Basos (auto) (0-0.2) 10^3/ul Absolute Nucleated RBC 10^3/ul Nucleated RBC % Sodium (135-145) mmol/L Potassium (3.5-5.0) mmol/L Chloride (101-111) mmol/L Carbon Dioxide (22-32) mmol/L Anion Gap (2-11) mmol/L BUN (6-24) mg/dL Creatinine (0.67-1.17) mg/dL Est GFR ( Amer) (>60) Est GFR (Non-Af Amer) (>60) BUN/Creatinine Ratio (8-20) Glucose (70-100) mg/dL Hemoglobin A1c 8.8 H (4.0-5.6) % Lactic Acid (0.5-2.0) mmol/L Calcium (8.6-10.3) mg/dL Total Bilirubin (0.2-1.0) mg/dL AST (13-39) U/L ALT (7-52) U/L Alkaline Phosphatase (34-104) U/L C-Reactive Protein (<8.01) mg/L Total Protein (6.4-8.9) g/dL Albumin (3.2-5.2) g/dL Globulin (2-4) g/dL Albumin/Globulin Ratio (1-3) Microbiology and Other Data: Microbiology 04/18/18 19:24 Skin and Soft Tissue MRSA/MSSA (PCR - Final Foot Right Mrsa Negative S.aureus Negative Gram Stain - Final Wound Culture - Preliminary Corynebacterium Striatum Assess/Plan/Problems-Billing Mr Medrano is a 47 yo M who has a h/o DM, chronic R foot wound with known underlying osteomyelitis who presented to the ER with c/o an infected toe. - Patient Problems (1) Chronic diabetic ulcer of right foot determined by examination Current Visit: Yes Status: Acute Code(s): E11.621 - TYPE 2 DIABETES MELLITUS WITH FOOT ULCER; L97.519 - NON-PRS CHRONIC ULCER OTH PRT RIGHT FOOT W UNSP SEVERITY SNOMED Code(s): 497342246 Comment: TMA today with Dr. Greenberg. Will continue on current Abx regimen for now. Await cultures from the OR. Plan for home early 04/22 with close follow up with Dr. Lopez and Dr. Greenberg after discharge to ensure he is healing appropriately and that he is on the correct Abx regimen. (2) Chronic osteomyelitis of right foot Current Visit: Yes Status: Acute Code(s): M86.671 - OTHER CHRONIC OSTEOMYELITIS, RIGHT ANKLE AND FOOT SNOMED Code(s): 4125102236696410 Comment: As above plan for TMA today. (3) Type II diabetes mellitus Current Visit: Yes Status: Acute Comment: Sugars are under fair control. Continue current dose of lantus (lantus held this AM for the OR). (4) PAD (peripheral artery disease) Current Visit: Yes Status: Acute Code(s): I73.9 - PERIPHERAL VASCULAR DISEASE, UNSPECIFIED SNOMED Code(s): 875938008 Comment: JOHNSON done about 1 month ago. L JOHNSON apppears to be worse than R. Follow up outpatient. (5) HTN (hypertension) Current Visit: Yes Status: Acute Code(s): I10 - ESSENTIAL (PRIMARY) HYPERTENSION SNOMED Code(s): 83058268 Comment: BP mildly elevated. Continue amlodipine and lisinopril. (6) DVT prophylaxis Current Visit: Yes Status: Acute Code(s): HKZ7257 - SNOMED Code(s): 638253095 Comment: SQ heparin (7) Full code status Current Visit: Yes Status: Acute Code(s): Z78.9 - OTHER SPECIFIED HEALTH STATUS SNOMED Code(s): 382187970
[2018-04-20] MEDS: metroNIDAZOLE IV 500 MG/100ML* 500 MG/100 ML BAG IVPB SCH ×2 (10:14→22:59)
[2018-04-20] MEDS ORDERED: Vancomycin Trough Check NOTE FOLLOW UP ONE (11:30)
[2018-04-20] MEDS ORDERED: Bupivacaine 0.5%* 50 ML VIAL ONE (14:10)
[2018-04-20] MEDS ORDERED: Bupivacaine 0.25% SDV PF* 10 ML VIAL INJ ONE (14:11)
[2018-04-20] MEDS ORDERED: Midazolam* 1 MG/ML 2 ML VIAL (2 MG) ONE (14:11)
[2018-04-20] MEDS ORDERED: fentaNYL* 50 MCG/ML 2 ML VIAL (100 MCG VIAL) ONE ×4 (14:11→16:38)
[2018-04-20] MEDS ORDERED: ceFAZolin 2 GM PREMIX in ORs 2 GM/50 ML BAG IVPB ONE (14:23)
[2018-04-20] MEDS ORDERED: Ondansetron INJ* 2 MG/ML VIAL ONE (15:28)
[2018-04-20] MEDS ORDERED: Lidocaine 2% PF * 5 ML VIAL ONE (15:28)
[2018-04-20] MEDS ORDERED: Propofol* 10 MG/ML 20 ML BTL ONE (15:28)
[2018-04-20] MEDS ORDERED: Metoclopramide IV* 5 MG/ML 2 ML VIAL ONE (15:28)
[2018-04-20] MEDS ORDERED: HYDROmorphone INJ1* 1 MG/ML SYRINGE IV PRN (16:23)
[2018-04-20] MEDS ORDERED: Naloxone* 0.4 MG/ML 1 ML VIAL IV PRN (16:23)
[2018-04-20] MEDS ORDERED: DiMENhydriNATE IV* 50 MG/ML VIAL IV PUSH PRN (16:23)
--- NOTE | 2018-04-20 16:28 | OP ---
Operative Report - Blank - Operative Report Date of Operation: 04/20/18 Note: PATIENT: Matthew Medrano DATE OF : 1970 DATE OF SURGERY: 04/20/2018 SURGEON: Jesus Bai MD SAMPLE SUPERVISOR: MARISA Santiago, whos assistance was necessary for positioning, retraction, help with instrumentation, and closure. ANESTHESIOLOGIST: Dr. Collazo PREOPERATIVE DIAGNOSIS: Right foot infection with osteomyelitis. Right gastrocnemius contracture. POSTOPERATIVE DIAGNOSIS: Right foot infection with osteomyelitis. Right gastrocnemius contracture. OPERATION: 1. Right foot transmetatarsal amputation 2. Right gastrocnemius recession (Charlie procedure) ANESTHESIA: GETA IMPLANTS: none TOURNIQUET TIME: Less than 2 hours with a well-padded thigh tourniquet at 250mmHg. SPECIMENS: Foot sent to pathology. Culture swabs from foot to micro. ESTIMATED BLOOD LOSS: 100cc COMPLICATIONS: none STATUS: Stable from the operating room to the recovery room and then back to the hospital floor. INDICATIONS FOR PROCEDURE: Ra has had a long-standing diabetic foot ulcer and an acute worsening of the foot with purulent infection. Both operative and non operative treatment alternatives were reviewed. Further, the nature and risks of surgery were reviewed in careful detail. Our discussions regarding the risks of surgery included, but were not limited to, infection, wound problems, nerve injury, neuroma, RSD, persistent symptoms, blood clot, persistent or worsening infection , phantom limb pain, failure of the surgery, need for further amputation, and even the remote chance of catastrophic complication, including loss of limb. DESCRIPTION OF PROCEDURE: The patient was seen in the preoperative holding unit and informed written consent was obtained. The appropriate extremity was marked. The patient was then brought to the operating room and carefully positioned on the operating room table. Anesthesia was induced. All bony prominences were padded with great care. A well-padded thigh tourniquet was placed. A chlorhexidine based pre- scrub was performed followed by a betadine prep and drape in standard sterile fashion. A surgical safety pause was then conducted in which we confirmed the appropriate patient, extremity, planned procedure, availability of equipment, indication and administration of prophylactic antibiotics, and DVT prophylaxis in the form of a compression boot on the non-surgical extremity. We began with Esmarch exsanguination of the limb, avoiding the involved foot, and inflated the tourniquet. We utilized a fish-mouth incision at the forefoot , which removed the large plantar ulcer. I dissected down through the dorsal forefoot to the level of the metatarsals. Fluoroscopy was utilized to confirm the level of the amputation. An oscillating saw was used to osteotomize all five metatarsals. These were beveled to decrease prominence plantarly. A rongeur and rasp were used to round and smooth the bone edges. The plantar half of the incision was completed and forefoot was then amputated. Culture swabs were taken from the forefoot. The foot was sent to pathology. The remaining tissue appeared healthy and viable. The wound was copiously irrigated and gloves and instruments changed. I then made an approximately 3-cm incision at the posteromedial calf. I carried the dissection through the soft tissue and divided the crural fascia longitudinally. I then exposed the fascia of the gastrocnemius muscle. Great care was taken to protect the sural nerve throughout this procedure. I cleared all adhesions from the posterior aspect of the gastrocnemius fascia and then transected this in its entirety from medially to laterally. I then identified the plantaris tendon, which was also tight medially. This was transected. These procedures had the effect of improving the ankle dorsiflexion to approximately 10 degrees. I then again confirmed that the sural nerve was in continuity. We irrigated copiously. I closed the wounds meticulously in layers. A sterile dressing was then applied followed by a splint with the ankle in neutral alignment. The patient was then awakened from anesthesia and transferred to the recovery room in stable condition. There were no complications. All needle and sponge counts were correct at the end of the case. ATTESTATION: I attest I was present and scrubbed and performed the critical portions of the procedure myself. POSTOPERATIVE PLAN: The patient will remain [id number] in the splint and will follow up will be in two weeks for a wound check, but we will likely leave the sutures in for 3-4 weeks. Antibiotic treatment will be guided by the infectious disease service.
[2018-04-20] MEDS: fentaNYL* 50 MCG/ML 2 ML VIAL (100 MCG VIAL) IV PRN ×2 (16:39→16:49)
[2018-04-20] MEDS: Indomethacin CAP* 50 MG PO ONE (22:35)
[2018-04-21] MEDS: Morphine VIAL* 4 MG/ML VIAL (1 ml vial) IV PRN ×2 (00:19→18:52)
[2018-04-21] MEDS: traMADol TAB* 50 MG PO PRN ×4 (04:20→22:48)
[2018-04-21] MEDS: Vancomycin(*) 1,250 MG in NS 0.9% 250 ML* 250 ML IVPB SCH ×3 (04:21→19:57)
[2018-04-21] MEDS: Heparin VIAL(*) 5000 UNITS/ML VIAL (FIVE THOUSAND) SUBCUT SCH ×3 (05:12→21:45)
[2018-04-21] MEDS: Cefepime 2 GM in Dextrose(*) 2 GM/50 ML BAG IV SCH ×2 (06:45→18:41)
[2018-04-21] MEDS: amLODIPine TAB* 5 MG PO SCH (08:55)
[2018-04-21] MEDS: Lisinopril TAB* 10 MG PO SCH (08:55)
[2018-04-21] MEDS: metroNIDAZOLE IV 500 MG/100ML* 500 MG/100 ML BAG IVPB SCH ×2 (08:58→21:59)
[2018-04-21] MEDS: Insulin LISPRO* 1 UNITS UNIT SUBCUT SCH ×3 (09:10→18:44)
[2018-04-21] MEDS: Insulin GLARGINE(*) 1 UNITS UNIT SUBCUT SCH ×2 (09:11→21:46)
[2018-04-21 10:59] LABS: Hematocrit 37 % (42-52); Hemoglobin 12.5 g/dl (14.0-18.0); Mean Corpuscular HGB Conc 34 g/dl (31-36); Mean Corpuscular Hemoglobin 28 pg (27-31); Mean Corpuscular Volume 85 fL (80-94); Platelet Count 286 10^3/ul (150-450); Red Blood Count 4.41 10^6/ul (4.00-5.40); Red Cell Distribution Width 13 % (10.5-15); White Blood Count 12.4 10^3/ul (3.5-10.8)
[2018-04-21 11:15] LABS: BUN/Creatinine Ratio 8.7 (8-20); Calcium 8.4 mg/dL (8.6-10.3); EGFR Non-African American 77.1 (>60); Potassium 4.3 mmol/L (3.5-5.0)
[2018-04-21] MEDS: NS 0.9% 1000 ML* 1,000 ML IV SCH (11:35)
[2018-04-21 12:07] LABS: C Reactive Protein 39.42 mg/L (<8.01)
--- NOTE | 2018-04-21 12:34 | PN ---
Progress Note - Progress Note Date of Service: 04/21/18 Note: POD1 R SIRISHA and joe. Reports mild pain in foot, moderate at calf. splint c/d/ i. Continue abx, RLE elevation and NWB, aspirin daily for DVT prophylaxis on d/c , f/u with me in 1 week. Jesus Bai MD
--- NOTE | 2018-04-21 12:36 | PN ---
Subjective Date of Service: 04/21/18 Interval History: Pt is feeling well. He states his pain has waxed/waned but generally has been hovering around a 5/10. The most pain is in the posterior calf. He also thinks his gout is flaring up in the R knee. Objective Active Medications: Acetaminophen (Tylenol Tab*) 650 mg PO Q4H PRN PRN Reason: FEVER/PAIN Al Hydrox/Mg Hydrox/Simethicone (Maalox Plus*) 30 ml PO Q6H PRN PRN Reason: INDIGESTION Amlodipine Besylate (Norvasc Tab*) 2.5 mg PO DAILY [facility] Last Admin: 04/21/18 08:55 Dose: 2.5 mg Dextrose (D50w Syringe 50 Ml*) 12.5 gm IV PUSH .FOR FS < 60 - SS PRN PRN Reason: FS < 60 Docusate Sodium (Colace Cap*) 100 mg PO BID PRN PRN Reason: CONSTIPATION Last Admin: 04/20/18 22:35 Dose: 100 mg Heparin Sodium (Porcine) (Heparin Vial(*)) 5,000 units SUBCUT Q8HR [facility] Last Admin: 04/21/18 05:12 Dose: Not Given Cefepime HCl (Maxipime 2 Gm In Dextrose Duplex (*)) 2 gm in 50 mls @ 100 mls/ hr IV Q12H [facility] Last Admin: 04/21/18 06:45 Dose: 100 mls/hr Metronidazole/Sodium Chloride (Flagyl 500 Mg Ivpb*) 500 mg in 100 mls @ 100 mls /hr IVPB Q12H [facility] Last Admin: 04/21/18 08:58 Dose: 100 mls/hr Sodium Chloride (Ns 0.9% 1000 Ml*) 1,000 mls @ 100 mls/hr IV PER RATE [facility] Last Admin: 04/21/18 11:35 Dose: 100 mls/hr Vancomycin HCl 1,250 mg/ (Sodium Chloride) 250 mls @ 166.667 mls/hr IVPB Q8H [facility] Last Admin: 04/21/18 11:38 Dose: 166.667 mls/hr Indomethacin (Indocin Cap*) 50 mg PO TID [facility] Insulin Glargine (Lantus(*)) 30 units SUBCUT BID [facility] Last Admin: 04/21/18 09:11 Dose: 30 units Insulin Human Lispro (Humalog*) 0 units SUBCUT AC [facility]; Protocol Last Admin: 04/21/18 09:10 Dose: 4 units Lisinopril (Prinivil Tab*) 40 mg PO DAILY [facility] Last Admin: 04/21/18 08:55 Dose: 40 mg Morphine Sulfate (Morphine Vial*) 4 mg IV Q4H PRN PRN Reason: PAIN Last Admin: 04/21/18 00:19 Dose: 4 mg Ondansetron HCl (Zofran Inj*) 4 mg IV Q4H PRN PRN Reason: NAUSEA/VOMITING Pharmacy Consult (Vancomycin Per Pharmacy*) 1 note FOLLOW UP . PRN PRN Reason: PER PROTOCOL Senna (Senokot Tab*) 1 tab PO BID PRN PRN Reason: CONSTIPATION Last Admin: 04/20/18 08:06 Dose: 1 tab Tramadol HCl (Ultram*) 100 mg PO Q6HR PRN PRN Reason: PAIN Last Admin: 04/21/18 10:32 Dose: 100 mg Vital Signs - 8 hr 04/21/18 04/21/18 04/21/18 07:21 10:32 11:56 Temperature 98.8 F 99.4 F Pulse Rate 82 78 Respiratory 14 14 14 Rate Blood Pressure 145/56 152/59 (mmHg) O2 Sat by Pulse 94 95 Oximetry Oxygen Devices in Use Now: None Appearance: Middle aged male sitting up in bed, NAD Eyes: No Scleral Icterus Ears/Nose/Mouth/Throat: Mucous Membranes Moist Respiratory: Symmetrical Chest Expansion and Respiratory Effort, Clear to Auscultation Cardiovascular: NL Sounds; No Murmurs; No JVD, RRR, No Edema Abdominal: NL Sounds; No Tenderness; No Distention Extremities: No Clubbing, Cyanosis, - - s/p R TMA (in cast) Skin: No Nodules or Sclerosis Neurological: Alert and Oriented x 3 Result Diagrams: 04/21/18 10:52 04/21/18 10:52 Additional Lab and Data: Lab Results 04/18/18 04/18/18 04/18/18 Range/Units 19:51 19:51 19:51 WBC 11.3 H (3.5-10.8) 10^3/ul RBC 5.30 (4.00-5.40) 10^6/ul Hgb 15.3 (14.0-18.0) g/dl Hct 45 (42-52) % MCV 84 (80-94) fL MCH 29 (27-31) pg MCHC 34 (31-36) g/dl RDW 13 (10.5-15) % Plt Count 409 (150-450) 10^3/ul MPV 7.3 L (7.4-10.4) fL Neut % (Auto) 72.2 % Lymph % (Auto) 17.7 % [place] % (Auto) 7.5 % Eos % (Auto) 2.2 % Baso % (Auto) 0.4 % Absolute Neuts (auto) 8.1 H (1.5-7.7) 10^3/ul Absolute Lymphs (auto) 2.0 (1.0-4.8) 10^3/ul Absolute Monos (auto) 0.8 (0-0.8) 10^3/ul Absolute Eos (auto) 0.2 (0-0.6) 10^3/ul Absolute Basos (auto) 0 (0-0.2) 10^3/ul Absolute Nucleated RBC 0 10^3/ul Nucleated RBC % 0 Sodium 136 (135-145) mmol/L Potassium 4.7 (3.5-5.0) mmol/L Chloride 102 (101-111) mmol/L Carbon Dioxide 26 (22-32) mmol/L Anion Gap 8 (2-11) mmol/L BUN 15 (6-24) mg/dL Creatinine 1.02 (0.67-1.17) mg/dL Est GFR ( Amer) 94.3 (>60) Est GFR (Non-Af Amer) 78.0 (>60) BUN/Creatinine Ratio 14.7 (8-20) Glucose 106 H (70-100) mg/dL Hemoglobin A1c (4.0-5.6) % Lactic Acid 1.6 (0.5-2.0) mmol/L Calcium 9.6 (8.6-10.3) mg/dL Total Bilirubin 0.30 (0.2-1.0) mg/dL AST 13 (13-39) U/L ALT 19 (7-52) U/L Alkaline Phosphatase 86 (34-104) U/L C-Reactive Protein 81.32 H (<8.01) mg/L Total Protein 7.4 (6.4-8.9) g/dL Albumin 3.9 (3.2-5.2) g/dL Globulin 3.5 (2-4) g/dL Albumin/Globulin Ratio 1.1 (1-3) 04/18/18 Range/Units 19:51 WBC (3.5-10.8) 10^3/ul RBC (4.00-5.40) 10^6/ul Hgb (14.0-18.0) g/dl Hct (42-52) % MCV (80-94) fL MCH (27-31) pg MCHC (31-36) g/dl RDW (10.5-15) % Plt Count (150-450) 10^3/ul MPV (7.4-10.4) fL Neut % (Auto) % Lymph % (Auto) % [place] % (Auto) % Eos % (Auto) % Baso % (Auto) % Absolute Neuts (auto) (1.5-7.7) 10^3/ul Absolute Lymphs (auto) (1.0-4.8) 10^3/ul Absolute Monos (auto) (0-0.8) 10^3/ul Absolute Eos (auto) (0-0.6) 10^3/ul Absolute Basos (auto) (0-0.2) 10^3/ul Absolute Nucleated RBC 10^3/ul Nucleated RBC % Sodium (135-145) mmol/L Potassium (3.5-5.0) mmol/L Chloride (101-111) mmol/L Carbon Dioxide (22-32) mmol/L Anion Gap (2-11) mmol/L BUN (6-24) mg/dL Creatinine (0.67-1.17) mg/dL Est GFR ( Amer) (>60) Est GFR (Non-Af Amer) (>60) BUN/Creatinine Ratio (8-20) Glucose (70-100) mg/dL Hemoglobin A1c 8.8 H (4.0-5.6) % Lactic Acid (0.5-2.0) mmol/L Calcium (8.6-10.3) mg/dL Total Bilirubin (0.2-1.0) mg/dL AST (13-39) U/L ALT (7-52) U/L Alkaline Phosphatase (34-104) U/L C-Reactive Protein (<8.01) mg/L Total Protein (6.4-8.9) g/dL Albumin (3.2-5.2) g/dL Globulin (2-4) g/dL Albumin/Globulin Ratio (1-3) Microbiology and Other Data: Microbiology 04/18/18 19:24 Skin and Soft Tissue MRSA/MSSA (PCR - Final Foot Right Mrsa Negative S.aureus Negative Gram Stain - Final Wound Culture - Preliminary Corynebacterium Striatum Assess/Plan/Problems-Billing Mr Medrano is a 47 yo M who has a h/o DM, chronic R foot wound with known underlying osteomyelitis who presented to the ER with c/o an infected toe. - Patient Problems (1) Chronic diabetic ulcer of right foot determined by examination Current Visit: Yes Status: Acute Code(s): E11.621 - TYPE 2 DIABETES MELLITUS WITH FOOT ULCER; L97.519 - NON-PRS CHRONIC ULCER OTH PRT RIGHT FOOT W UNSP SEVERITY SNOMED Code(s): 260309139 Comment: Pt is POD 1 from a R TMA and R gastrocnemius recession. Pain is generally ok. Continue prn tramadol and indomethacin. Continue vanco and cefepime. Await culture data from OR. Discuss with Dr. Lopez tomorrow what ABx to continue on. (2) Chronic osteomyelitis of right foot Current Visit: Yes Status: Acute Code(s): M86.671 - OTHER CHRONIC OSTEOMYELITIS, RIGHT ANKLE AND FOOT SNOMED Code(s): 5273340634646146 Comment: S/P R TMA (3) Type II diabetes mellitus Current Visit: Yes Status: Acute Comment: Sugars are under fair control. Change back to once daily dose of lantus. Trulicity and invokamet are on hold as they are [id number]-keagyx on d/c. (4) PAD (peripheral artery disease) Current Visit: Yes Status: Acute Code(s): I73.9 - PERIPHERAL VASCULAR DISEASE, UNSPECIFIED SNOMED Code(s): 541025373 Comment: JOHNSON done about 1 month ago. L JOHNSON apppears to be worse than R. Follow up outpatient. (5) HTN (hypertension) Current Visit: Yes Status: Acute Code(s): I10 - ESSENTIAL (PRIMARY) HYPERTENSION SNOMED Code(s): 60580125 Comment: BP remains elevated. Increase amlodipine to 5mg daily. (6) DVT prophylaxis Current Visit: Yes Status: Acute Code(s): WWR7881 - SNOMED Code(s): 528959697 Comment: SQ heparin (7) Full code status Current Visit: Yes Status: Acute Code(s): Z78.9 - OTHER SPECIFIED HEALTH STATUS SNOMED Code(s): 528979562
[2018-04-21] MEDS: Indomethacin CAP* 50 MG PO SCH ×2 (13:18→21:38)
[2018-04-22] MEDS: NS 0.9% 1000 ML* 1,000 ML IV SCH (03:15)
[2018-04-22] MEDS: Vancomycin(*) 1,250 MG in NS 0.9% 250 ML* 250 ML IVPB SCH (03:46)
[2018-04-22] MEDS: Cefepime 2 GM in Dextrose(*) 2 GM/50 ML BAG IV SCH (05:44)
[2018-04-22] MEDS: Heparin VIAL(*) 5000 UNITS/ML VIAL (FIVE THOUSAND) SUBCUT SCH ×2 (06:12→14:06)
[2018-04-22 07:32] VITALS: BP 154/63
[2018-04-22] MEDS: Lisinopril TAB* 10 MG PO SCH (07:44)
[2018-04-22] MEDS: Indomethacin CAP* 50 MG PO SCH ×2 (07:44→14:07)
[2018-04-22] MEDS: traMADol TAB* 50 MG PO PRN ×2 (07:45→14:05)
[2018-04-22] MEDS ORDERED: Insulin GLARGINE(*) 1 UNITS UNIT SUBCUT SCH (09:00)
[2018-04-22] MEDS ORDERED: amLODIPine TAB* 5 MG PO SCH (09:00)
[2018-04-22] MEDS: metroNIDAZOLE IV 500 MG/100ML* 500 MG/100 ML BAG IVPB SCH (09:42)
[2018-04-22] MEDS: Insulin LISPRO* 1 UNITS UNIT SUBCUT SCH ×2 (09:42→13:27)
--- NOTE | 2018-04-22 20:43 | DS ---
CC: Dr. Strong; Dr. Aragon; Dr. Lopez * DISCHARGE SUMMARY: DATE OF ADMISSION: 04/18/18. DATE OF DISCHARGE: 04/22/18. PRIMARY CARE PROVIDER: Dr. Strong. ORTHOPEDIC SURGEON: Dr. Aragon. INFECTIOUS DISEASE SPECIALIST: Dr. Lopez. PRINCIPAL DIAGNOSES: Osteomyelitis of the right forefoot, status post transmetatarsal amputation. SECONDARY DIAGNOSES: 1. Type 2 diabetes. 2. Hypertension. DISCHARGE MEDICATIONS: 1. Metformin 1000 mg p.o. twice daily. 2. Amlodipine 2.5 mg p.o. daily. 3. Levemir 30 mg subcutaneously twice daily. 4. Tramadol 100 mg p.o. q.6 hours p.r.n. pain. 5. Lisinopril 40 mg p.o. daily. 6. Indomethacin 50 mg p.o. t.i.d. 7. Oxycodone 5 to 10 mg p.o. q.4 hours p.r.n. pain. 8. Flagyl 500 mg p.o. b.i.d. for 14 days. 9. Cefepime 2 g IV q.12 hours for 14 days. HOSPITAL COURSE: Mr. Medrano is a 47-year-old male, who has had a chronic wound on the plantar surface of the right foot for quite some time, who also underwent amputation of the 3rd right toe due to osteomyelitis, who presents to the emergency room with complaints of toe infection. The toe that is currently infected is the former 4th toe prior to the 3rd toe amputation. He noted that this became swollen and red. There is purulent drainage. The patient underwent MRI of the right foot, which revealed severe destructive and erosive changes in the distal 2nd metatarsal and 2nd proximal phalanx consistent with osteomyelitis. Bone marrow edema in the 1st and 4th metatarsophalangeals also most consistent with osteomyelitis. This was a limited exam due to motion artifact. The patient was seen by Dr. Aragon and ultimately it was determined that he would need a transmetatarsal amputation. This was performed on 04/20/18. Culture from the OR, has grown corynebacterium striatum. The patient had been on vancomycin, cefepime, and Flagyl during his hospitalization. As there was no evidence of MRSA, the vancomycin was discontinued. The patient was set up to receive IV antibiotics at home. Cefepime 2 g IV q.12 hours will be utilized over the next 2 weeks. The patient has been instructed to follow up with Dr. Lopez within that period of time to determine if this is the appropriate antibiotic regimen. Additionally, he will be on Flagyl. The patient will need to follow up with Dr. Aragon in 1 week. The patient at this point is stable for discharge home. His sugars had been under fair control. He will continue on his usual home medication regimen. Additionally, his blood pressure has been noted to be moderately elevated. He states at his primary care provider's office, his blood pressure is always in the 120 to 130s range. I have not adjusted his amlodipine dose for home. If his blood pressures remain high, his amlodipine dose should increased to 5 mg. PHYSICAL EXAMINATION: On the day of discharge, the patient is awake, alert, and oriented x3 and sitting up in bed, in no acute distress. His cardiac exam reveals a normal S1 and S2 with a regular rate and rhythm. His lungs are clear. His abdomen is soft, nontender, and nondistended. He has no lower extremity edema. He is status post right TMA with the right lower leg in a splint and Brad wrap. Vital signs are stable and the patient is afebrile. FOLLOWUP CONCERNS: The patient is being discharged home today, 04/22/18. ACTIVITY LEVEL: As tolerated. DIET: Diabetic. CONDITION ON DISCHARGE: Stable. TIME SPENT: 35 minutes was spent discharging this patient. [id number]/[facility] #: [id number] MTDD
[2018-04-23] MEDS ORDERED: Insulin GLARGINE(*) 1 UNITS UNIT SUBCUT SCH (09:00)
== END 2018-04-22 16:20 | disposition home health service (06) | DRG 617 ==
LOC: ED 17:51 → MED 21:03
PROVIDERS: ADMIT Pediatrics; ATTEND Hospitalist
PROC: 0Y6M0Z0 Detachment at Right Foot, Complete, Open Approach (ICD-10-PCS; principal; 2018-04-20 14:00)
DX: E11.69 Type 2 diabetes mellitus with other specified complication (principal); M86.671 Other chronic osteomyelitis, right ankle and foot; I96 Gangrene, not elsewhere classified; E11.52 Type 2 diabetes mellitus with diabetic peripheral angiopathy with gangrene; M10.9 Gout, unspecified; E11.621 Type 2 diabetes mellitus with foot ulcer; L97.519 Non-pressure chronic ulcer of other part of right foot with unspecified severity; F17.210 Nicotine dependence, cigarettes, uncomplicated; I10 Essential (primary) hypertension; G89.29 Other chronic pain; R40.2362 Coma scale, best motor response, obeys commands, at arrival to emergency department; R40.2142 Coma scale, eyes open, spontaneous, at arrival to emergency department; R40.2252 Coma scale, best verbal response, oriented, at arrival to emergency department; M62.461 Contracture of muscle, right lower leg; E11.40 Type 2 diabetes mellitus with diabetic neuropathy, unspecified; B96.89 Other specified bacterial agents as the cause of diseases classified elsewhere; Z79.4 Long term (current) use of insulin; Z80.0 Family history of malignant neoplasm of digestive organs; Z98.41 Cataract extraction status, right eye
CPT/HCPCS: 36415; 76000; 80048; 80053; 80202; 82565; 83036; 83605; 84520; 85025; 85027; 86140; 87040; 87070; 87073; 87077; 87205; 87640; 87641; 99284; 99406; A9270-GY; A9579; J0690; J0692; J1644; J2250; J2270; J2405; J2543; J2704; J2765; J3010; J3370; J3490

== ENCOUNTER 2018-06-16 11:47 | Inpatient (IN) | payer MEDICARE, MEDICAID ==
[2018-06-16] MEDS ORDERED: Ondansetron INJ* 2 MG/ML VIAL IV ONE (12:45)
[2018-06-16] MEDS ORDERED: Morphine 10 MG/ML VIAL (1 ml) IV ONE (12:46)
[2018-06-16] MEDS ORDERED: Ondansetron INJ* 2 MG/ML VIAL ONE (12:46)
[2018-06-16] MEDS: NS 0.9% 1000 ML** 2,000 ML IV ONE (12:53)
[2018-06-16 12:56] LABS: ABS Basophils 0.1 10^3/ul (0-0.2); ABS Eosinophils 0.1 10^3/ul (0-0.6); ABS Lymphocytes 2.1 10^3/ul (1.0-4.8); ABS Monocytes 0.9 10^3/ul (0-0.8); ABS Neutrophils 13.9 10^3/ul (1.5-7.7); ABS Nucleated RBC 0 10^3/ul; Eosinophil % 0.5 %; Hematocrit 51 % (42-52); Hemoglobin 17.2 g/dl (14.0-18.0); Lymphocyte % 12.3 %; Mean Corpuscular HGB Conc 34 g/dl (31-36); Mean Corpuscular Hemoglobin 29 pg (27-31); Mean Corpuscular Volume 85 fL (80-94); Mean Platelet Volume 7.5 fL (7.4-10.4); Nucleated Red Blood Cells % 0; Platelet Count 367 10^3/ul (150-450); Red Blood Count 6.02 10^6/ul (4.00-5.40); Red Cell Distribution Width 14 % (10.5-15); White Blood Count 17.1 10^3/ul (3.5-10.8)
[2018-06-16 13:09] LABS: Albumin 4.6 g/dL (3.2-5.2); Albumin/Globulin Ratio 1.4 (1-3); BUN/Creatinine Ratio 14.6 (8-20); C Reactive Protein 6.21 mg/L (<8.01); EGFR African American 93.3 (>60); EGFR Non-African American 77.1 (>60); Globulin 3.3 g/dL (2-4); Magnesium 1.5 mg/dL (1.9-2.7); Potassium 4.4 mmol/L (3.5-5.0); Total Bilirubin 0.6 mg/dL (0.2-1.0); Total Protein 7.9 g/dL (6.4-8.9)
[2018-06-16 13:10] LABS: Troponin I 0.01 ng/mL (<0.04)
[2018-06-16] MEDS ORDERED: Acetaminophen TAB* 325 MG PO ONE (13:28)
[2018-06-16] MEDS ORDERED: Magnesium Sulfate 2 GM IV* 2 GM/50 ML BAG IVPB ONE (13:28)
--- NOTE | 2018-06-16 13:37 | ED ---
Neurological HPI - HPI Summary HPI Summary: Patient is a 47-year-old male with a history osteomyelitis with foot amputation secondary to uncontrolled diabetes presenting to the ED with headache which is worst of life located behind the right eye. He is also endorsing left-sided arm weakness and feeling he is unable to control his left arm. He denies any numbness or tingling to the bilateral upper and lower extremities. He is also endorsing nausea, vomiting, weakness and extreme fatigue. He did not receive the flu vaccine this year. He denies any shortness of breath, chest pain, cough , congestion. He denies any known rashes or cellulitis. Currently taking amlodipine, lisinopril and metformin. - History of Current Complaint Chief Complaint: EDGeneral Stated Complaint: GENERAL ILLNESS Time Seen by Provider: 06/16/18 11:55 Hx Obtained From: Patient Onset/Duration: Gradual Onset Timing: Constant Onset Severity: Moderate Current Severity: Severe Seizure Severity: Severe Neurological Deficit Location: LUE Headache Location: Temporal (Right) - behind R eye Pain Intensity: 9 Pain Scale Used: 0-10 Numeric Associated Signs and Symptoms: Positive: Headache, Weakness, Nausea/Vomiting. Negative: Memory Loss, Confusion, Agitation, Loss of Consciousness, Dizziness, Decreased Level of Consciousness, Impaired Speech TPA Considered: No - patient is not within a 6 hour window Related Hx: Medication Non-Comliant - Additional Pertinent History Primary Care Physician: SID - Allergy/Home Medications Allergies/Adverse Reactions: Allergies Allergy/AdvReac Type Severity Reaction Status Date / Time No Known Allergies Allergy Verified 06/16/18 11:59 PMH/Surg Hx/FS Hx/Imm Hx Previously Healthy: No Endocrine/Hematology History: Reports: Hx Diabetes - metformin Cardiovascular History: Reports: Hx Hypertension Denies: Hx Angina, Hx Coronary Artery Disease, Hx Hypercholesterolemia, Hx Myocardial Infarction, Hx Pacemaker/ICD, Hx Valvular Heart Disease Respiratory History: Denies: Hx Asthma, Hx Chronic Obstructive Pulmonary Disease (COPD) History: Denies: Hx Dialysis, Hx Renal Disease Sensory History: Reports: Hx Contacts or Glasses - glasses Denies: Hx Cataracts, Hx Eye Injury, Hx Eye Prosthesis, Hx Glaucoma, Hx Legally Blind, Hx Macular Degeneration, Hx Vision Problem, Hx Deafness, Hx Hearing Aid, Hx Hearing Problem, Other Sensory Impairments Opthamlomology History: Reports: Hx Contacts or Glasses - glasses Denies: Hx Cataracts, Hx Eye Injury, Hx Eye Prosthesis, Hx Glaucoma, Hx Legally Blind, Hx Macular Degeneration, Hx Vision Problem, Other Sensory Impairments Psychiatric History: Denies: Hx Autism, Hx Panic Disorder - Surgical History Surgery Procedure, Year, and Place: carpal tunnel bilat; left knee arthroscopy; cataract right eye ; tubes in ears as a child ; tonsils ; bilateral amputation to a toe ; - Immunization History Hx Pertussis Vaccination: No Immunizations Up to Date: Yes Infectious Disease History: No Infectious Disease History: Denies: Hx Clostridium Difficile, Hx Hepatitis, Hx Human Immunodeficiency Virus (HIV), Hx of Known/Suspected MRSA, Hx Shingles, Hx Tuberculosis, Hx Known/ Suspected VRE, Hx Known/Suspected VRSA, History Other Infectious Disease, Traveled Outside the [place] in Last 30 Days - Family History Known Family History: Positive: Unknown - Social History Occupation: Unemployed Lives: With Family Alcohol Use: None Hx Substance Use: No Substance Use Type: Reports: None Smoking Status (MU): Light Every Day Tobacco Smoker Type: Cigarettes Amount Used/How Often: 1 ppd Have You Smoked in the Last Year: No Review of Systems Negative: Fever, Chills, Fatigue, Skin Diaphoresis Negative: Blurred Vision, Diplopia, Drainage, Erythema Negative: Palpitations, Chest Pain Negative: Shortness Of Breath, Cough Positive: Vomiting, Nausea. Negative: Diarrhea Positive: see HPI Negative: Arthralgia, Myalgia Neurological: Other - R eye headache Positive: Weakness Psychological: Normal All Other Systems Reviewed And Are Negative: Yes Physical Exam Triage Information Reviewed: Yes Vital Signs On Initial Exam: Initial Vitals Temp Pulse Resp BP Pulse Ox 97.5 F 105 20 187/97 96 06/16/18 11:50 06/16/18 11:50 06/16/18 11:50 06/16/18 11:50 06/16/18 11:50 Vital Signs Reviewed: Yes Appearance: Positive: Well-Nourished, Ill-Appearing - n/v Skin: Positive: Warm, Skin Color Reflects Adequate Perfusion Head/Face: Positive: Normal Head/Face Inspection Neck: Positive: Nontender, No Lymphadenopathy Respiratory/Lung Sounds: Positive: Breath Sounds Present Cardiovascular: Positive: Pulses are Symmetrical in both Upper and Lower Extremities. Negative: Leg Edema Left, Leg Edema Right Musculoskeletal: Positive: Other - Rt foot amputation, PVD bilaterally to lower extremities; weakness at baseline Neurological: Positive: Other - L arm drift <10 seconds, L hemianopsia Psychiatric: Positive: Normal, Affect/Mood Appropriate AVPU Assessment: Alert - [place] Coma Scale Best Eye Response: 3 - To Speech Best Motor Response: 6 - Obeys Commands Best Verbal Response: 5 - Oriented Coma Scale Total: 14 Diagnostics - Vital Signs Vital Signs Temp Pulse Resp BP Pulse Ox 06/16/18 12:52 19 06/16/18 12:28 96 06/16/18 12:22 21 06/16/18 12:10 104 19 193/101 97 06/16/18 12:00 102 11 98 06/16/18 11:55 104 95 06/16/18 11:51 187/97 06/16/18 11:50 97.5 F 105 20 187/97 96 - Laboratory Lab Results: Lab Results 06/16/18 06/16/18 06/16/18 Range/Units 12:17 12:46 12:46 WBC 17.1 H (3.5-10.8) 10^3/ul RBC 6.02 H (4.00-5.40) 10^6/ul Hgb 17.2 (14.0-18.0) g/dl Hct 51 (42-52) % MCV 85 (80-94) fL MCH 29 (27-31) pg MCHC 34 (31-36) g/dl RDW 14 (10.5-15) % Plt Count 367 (150-450) 10^3/ul MPV 7.5 (7.4-10.4) fL Neut % (Auto) 81.4 % Lymph % (Auto) 12.3 % [place] % (Auto) 5.2 % Eos % (Auto) 0.5 % Baso % (Auto) 0.6 % Absolute Neuts (auto) 13.9 H (1.5-7.7) 10^3/ul Absolute Lymphs (auto) 2.1 (1.0-4.8) 10^3/ul Absolute Monos (auto) 0.9 H (0-0.8) 10^3/ul Absolute Eos (auto) 0.1 (0-0.6) 10^3/ul Absolute Basos (auto) 0.1 (0-0.2) 10^3/ul Absolute Nucleated RBC 0 10^3/ul Nucleated RBC % 0 Sodium 136 (135-145) mmol/L Potassium 4.4 (3.5-5.0) mmol/L Chloride 99 L (101-111) mmol/L Carbon Dioxide 27 (22-32) mmol/L Anion Gap 10 (2-11) mmol/L BUN 15 (6-24) mg/dL Creatinine 1.03 (0.67-1.17) mg/dL Est GFR ( Amer) 93.3 (>60) Est GFR (Non-Af Amer) 77.1 (>60) BUN/Creatinine Ratio 14.6 (8-20) Glucose 261 H (70-100) mg/dL POC Glucose (mg/dL) 236 H (70-100) mg/dL Lactic Acid (0.5-2.0) mmol/L Calcium 10.0 (8.6-10.3) mg/dL Magnesium 1.5 L (1.9-2.7) mg/dL Total Bilirubin 0.60 (0.2-1.0) mg/dL AST 14 (13-39) U/L ALT 17 (7-52) U/L Alkaline Phosphatase 79 (34-104) U/L Total Creatine Kinase 83 (10-223) U/L Troponin I 0.01 (<0.04) ng/mL C-Reactive Protein 6.21 (<8.01) mg/L B-Natriuretic Peptide (<=100) pg/mL Total Protein 7.9 (6.4-8.9) g/dL Albumin 4.6 (3.2-5.2) g/dL Globulin 3.3 (2-4) g/dL Albumin/Globulin Ratio 1.4 (1-3) TSH Pending 06/16/18 06/16/18 Range/Units 12:46 12:46 WBC (3.5-10.8) 10^3/ul RBC (4.00-5.40) 10^6/ul Hgb (14.0-18.0) g/dl Hct (42-52) % MCV (80-94) fL MCH (27-31) pg MCHC (31-36) g/dl RDW (10.5-15) % Plt Count (150-450) 10^3/ul MPV (7.4-10.4) fL Neut % (Auto) % Lymph % (Auto) % [place] % (Auto) % Eos % (Auto) % Baso % (Auto) % Absolute Neuts (auto) (1.5-7.7) 10^3/ul Absolute Lymphs (auto) (1.0-4.8) 10^3/ul Absolute Monos (auto) (0-0.8) 10^3/ul Absolute Eos (auto) (0-0.6) 10^3/ul Absolute Basos (auto) (0-0.2) 10^3/ul Absolute Nucleated RBC 10^3/ul Nucleated RBC % Sodium (135-145) mmol/L Potassium (3.5-5.0) mmol/L Chloride (101-111) mmol/L Carbon Dioxide (22-32) mmol/L Anion Gap (2-11) mmol/L BUN (6-24) mg/dL Creatinine (0.67-1.17) mg/dL Est GFR ( Amer) (>60) Est GFR (Non-Af Amer) (>60) BUN/Creatinine Ratio (8-20) Glucose (70-100) mg/dL POC Glucose (mg/dL) (70-100) mg/dL Lactic Acid 2.1 H* (0.5-2.0) mmol/L Calcium (8.6-10.3) mg/dL Magnesium (1.9-2.7) mg/dL Total Bilirubin (0.2-1.0) mg/dL AST (13-39) U/L ALT (7-52) U/L Alkaline Phosphatase (34-104) U/L Total Creatine Kinase (10-223) U/L Troponin I (<0.04) ng/mL C-Reactive Protein (<8.01) mg/L B-Natriuretic Peptide 36 (<=100) pg/mL Total Protein (6.4-8.9) g/dL Albumin (3.2-5.2) g/dL Globulin (2-4) g/dL Albumin/Globulin Ratio (1-3) TSH Result Diagrams: 06/16/18 12:46 06/17/18 04:50 Lab Statement: Any lab studies that have been ordered have been reviewed, and results considered in the medical decision making process. NIH Scale - NIH Scale Level of Consciousness: Alert/Keenly Responsive Ask Patient the Month and His/Her Age: Both Correct Ask Pt to Open/Close Eyes and Compounder/Release Non-Paretic Hand: One Correctly Best Gaze (Only Horizontal Eye Movement): Normal Visual Field Testing: Partial Hemianopia Facial Paresis-Pt to Smile & Close Eyes or Grimace Symmetry: Normal/Symmetrical Motor Function - Right Arm: No Drift-Holds 10 Seconds Motor Function - Left Arm: Drifts LT 10 seconds Motor Function - Right Leg: Effort Against [place] Motor Function - Left Leg: Effort Against [place] Sensory (Use Pinprick to Test Arms/Legs/Trunk/Face): Normal Best Language (Describe Picture, Name Items): No Aphasia Extinction and Inattention: No Abnormality Re-Evaluation - Re-Evaluation First Eval Re-Evaluation Time: 19:17 Change: Unchanged Comment: Patient reports headache 2 days ago and stroke 1 day ago with symptoms of left sided weakness beginning at 18:30 yesterday. Patient's daughter is 13 y/ o and named Hazel. His son is named Lb and is in his 20s. Patient's girlfriend, Kristy Saavedra, will try to reach his children. Second Eval Re-Evaluation Time: 20:17 Change: Unchanged Comment: He is rousable. Girlfriend Kristy says that he is still moving on the stretcher. Third Eval Re-Evaluation Time: 20:58 Change: Unchanged Comment: Patient is with girlfriend Kristy and daughter Hazel. They are agreeable to admission plan. Course/Dx - Course Course Of Treatment: During this course of treatment, the patient's evaluated for right-sided worst headache of life as well as left-sided arm weakness in which she states "I am unable to control my left arm." He states he is unable to lift it appropriately and it feels heavy. He denies any pain or discomfort to the upper or lower extremity's. He denies any CP or SOB. Symptoms began last afternoon/evening. He takes no pain medications. Pain is currently rated a 10/10. On physical examination, patient appears ill with nausea and vomiting present. He was given Zofran 8 and morphine 4. This was with no improvement of his pain, however improved his nausea. Neuro exam obtained which showed a left-sided hemianopsia, tongue midline,L arm drift <10 seconds. Obvious dysmetria. Last known well was ilana 14+ hours ago per daughter. CT brain obtained. This was read as normal with no acute intracranial abnormalities. Labs show an elevated white count with an elevated lactic at 2.1 and low magnesium at 1.5. Opiate positive toxicology screen, however otherwise negative. UA negative. Influenza negative. Chest x-ray shows no acute cardiopulmonary disease. Discussed case with Dr. Monsivais, neurology, who agrees to see patient in the ED and recommends CTA head. 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 No internal carotid artery stenosis by nascet criteria. No aneurysm. No vascular malformation, occlusion, or stenosis of the visualized intracranial circulation. He continues to endorses severe headache behind the right eye. Magnesium, prochlorperazine and hydrocodone with acetaminophen given. MRI recommended by Dr. Monsivais. Patient is severely claustrophobic and is unwilling to participate in the MRI. Discussed treatment options and medications with patient. He is willing to attempt to medications for sedation. Ativan 1mg given. This with no effect. Haldol 5mg and Ativan 2mg given. Again, patient unable to obtain MRI. Discussed with Dr. Monsivais and Dr. Henning per the use of more medications. Again, Haldol 5mg and Ativan 2mg ordered. Continued to be unable to obtain MRI. Discussed this case with Dr. Henning who receives sign out from me at 6:30pm while awaiting decision making by Dr. Monsivais and hospitalist team. Patient is comfortable and VS stable. - Differential Dx Differential Diagnoses Neuro: Positive: Headache, Transient Ischemic Attack, Other - Posterior surgical intervention stroke, stroke, hemorrhage, n/v, dysmetria - Diagnoses Provider Diagnoses: Stroke, Diabetes type 2, uncontrolled, Headache - Physician Notifications Discussed Care Of Patient With: Emmy Monsivais Time Discussed With Above Provider: 13:30 Instructed by Provider To: Admit As Inpatient Discharge - Sign-Out/Discharge Documenting (check all that apply): Patient Departure All imaging exams completed and their final reports reviewed: Yes Patient Received Moderate/Deep Sedation with Procedure: No - Discharge Plan Condition: Fair Disposition: ADMITTED TO [facility] - Billing Disposition and Condition Condition: FAIR Disposition: Admitted to [facility]
[2018-06-16] MEDS ORDERED: PROCHLORPERAZINE INJ 5 MG/ML 2 ML VIAL IV ONE (13:45)
[2018-06-16 13:51] LABS: TSH (Thyroid Stimulating Horm) 0.4 mcIU/mL (0.34-5.60)
[2018-06-16 14:08] LABS: Influenza A Molecular NEGATIVE (Negative); Influenza B Molecular NEGATIVE (Negative)
[2018-06-16] MEDS ORDERED: Iodixanol* (CONTRAST) 320 MG/ML 100 ML SDV IV ONE (14:17)
[2018-06-16 15:07] LABS: Urine Appearance Clear; Urine Bacteria Absent (Absent); Urine Bilirubin Negative (Negative); Urine Blood Negative (Negative); Urine Color Yellow; Urine Glucose 2+(150 mg/dL) (Negative); Urine Ketones Trace (Negative); Urine Nitrite Negative (Negative); Urine Protein 2+(100 mg/dL) (Negative); Urine Red Blood Cell Trace(0-2/hpf) (Absent); Urine Specific Gravity 1.017 (1.010-1.030); Urine Squamous Epithelial Cell Present (Absent); Urine Urobilinogen Negative (Negative); Urine White Blood Cell 1+(6-10/hpf) (Absent)
[2018-06-16 15:15] LABS: Barbiturates Urine Screen None Detected (None Detect); Benzodiazepine Urine Screen None Detected (None Detect); Urine Cannabinoids Screen None Detected (None Detect)
[2018-06-16] MEDS ORDERED: HYDROcodone/ACETAMIN 5-325 MG* 1 TAB PO ONE (15:52)
[2018-06-16] MEDS ORDERED: LORazepam INJ* 2 MG/ML 1 ML VIAL IV PUSH ONE ×4 (16:12→18:29)
[2018-06-16] MEDS ORDERED: Haloperidol INJ IV/IM* 5 MG/ML AMP IV SLOW PU ONE ×2 (17:08→17:53)
[2018-06-16] MEDS ORDERED: Haloperidol INJ IV/IM* 5 MG/ML AMP IM ONE (17:48)
[2018-06-16] MEDS ORDERED: LORazepam INJ* 2 MG/ML 1 ML VIAL ONE (18:31)
--- NOTE | 2018-06-16 18:34 | ED ---
Progress - Progress Note Progress Note: Assumed care at 18:31 for 47 y/o diabetic M patient with probable stroke, onset 18:30 06/15/18. Status-post evaluation by MARISA Beaulieu, and Dr. Monsivais, neurology, awaiting MRI. Patient is extremely anxious and fearful of MRI and claustrophobic. He has been medicated with Haldol and Ativan. At this time, he remains anxious so he will receive 2 more mg of Ativan. Re-Evaluation - Re-Evaluation First Eval Re-Evaluation Time: 19:17 Change: Unchanged Comment: Patient reports headache 2 days ago and stroke 1 day ago with symptoms of left sided weakness beginning at 18:30 yesterday. Patient's daughter is 13 y/ o and named Hazel and is with pt in the ED. His son is named Lb and is in his 20s, and would be pt's closest living relative for consent. Patient's girlfriend, Kristy Saavedra, is with pt in the ED and provides this information. She is continuing to try to reach pt's son Lb who has not responded to her multiple texts and phone calls. Second Eval Re-Evaluation Time: 20:17 Change: Unchanged Comment: He is rousable. Girlfriend Kristy says that he is still moving on the stretcher. Third Eval Re-Evaluation Time: 20:58 Change: Unchanged Comment: Patient is with girlfriend Kristy and daughter Hazel. They are agreeable to admission plan. Course/Dx - Course Course Of Treatment: Patient was given multiple doses of Ativan (5mg total) and Haldol (total 10mg) without relief of his anxiety and fear of MRI machine. Patient continues to be hyperglycemic while in ED, so hypoglycemia is not the cause of his agitation. He has not had any seizure-like activity. Finger stick from 19:[address] Monsivais's consult notes, patient has NIH score of 6. Further sedation risks hypotension and hypoperfusion, possible worsening of his neuro status and also obscures following his neuro exam. Transfer was initiated at 19:30 to higher level of care, should pt decompensate. Spoke with Khalida from [facility] at 19:41 who connected us to Dr. Pickett, stroke attending at [facility], who provided us an over the phone consultation of the patient. He agreed there may be a cerebellum component as well but he did not believe there would be any advantage to transferring patient to a facility with higher level of care. Spoke with Dr. Monsivais at 20:19 who was updated on the situation. She will call the Transfer Center number to speak with Dr. Pickett. Dr. Monsivais called back at 20:37 and said that we will admit patient to ICU for close neuro checks every 2 hours, repeat CT brain imaging in the am, ECHO and bubble, phospholipid panel. Dr. Whiteside, hospitalist, agrees to admit patient to ICU at 21:02. Patient and family are agreeable to this plan. - Diagnoses Provider Diagnoses: Stroke, Diabetes type 2, uncontrolled, Headache - Provider Notifications Discussed Care Of Patient With: Emmy Monsivais Time Discussed With Above Provider: 19:12 Instructed by Provider To: Other - Dr. Monsivais, neurology, recommends getting an MRI to define the stroke. The stroke could be right parietal but could be posterior. If posterier, then would need to decompensate. Patient could stay in ICU here to be watched closely or could be transferred to an academic center. Patient says he has been to [facility] before. Spoke with Dr. Whiteside, hospitalist, at 21:05, who agrees to admit patient. Discharge - Sign-Out/Discharge Documenting (check all that apply): Patient Departure - Admit ICU Patient Received Moderate/Deep Sedation with Procedure: No - Discharge Plan Condition: Fair Disposition: ADMITTED TO [facility] - Billing Disposition and Condition Condition: FAIR Disposition: Admitted to [facility] - Attestation Statements Document Initiated by Benedicte: Yes Documenting Scribe: Homa Batista Provider For Whom Quang is Documenting (Include Credential): Estelle Henning Scribpedro Attestation: Homa Valentine, scribed for Estelle eHnning on 06/17/18 at 1954. Scribe Documentation Reviewed: Yes Provider Attestation: The documentation as recorded by the scribeHoma accurately reflects the service I personally performed and the decisions made by me, Estelle Henning Status of Scribe Document: Viewed
--- NOTE | 2018-06-16 21:15 | CONS ---
CC: Dr. Jim Strong * CONSULTATION REPORT: DATE OF CONSULT: 06/16/18 REQUESTING PHYSICIAN: Dr. Barahona REASON FOR CONSULT: Headache, vomiting, and difficulty controlling left arm. HISTORY OF PRESENT ILLNESS: Mr. Michael Medrano is a 47-year-old gentleman with a history of diabetes mellitus complicated by peripheral neuropathy, peripheral artery disease, right foot chronic osteomyelitis with chronic ulcers and bilateral amputations, hypertension, who was in his usual state of health until approximately 2 days prior to arrival when on Sunday night, 06/14/18, he started getting sick to his stomach and developing a headache behind his right eye, which he describes as a pressure. This came on slowly. He did not get a great night's sleep that night. On Sunday afternoon, he started to vomit. They went out shopping and he vomited in the parking lot. He started noticing that he was bumping into things when he would walk, and by 9 to 10 o'clock at night on Sunday, he noticed that his left hand was not functioning correctly. Given continuous symptoms today, he was brought to the emergency room. He denies any change in his vision. There has been no chest pain, chest pressure, palpitations, shortness of breath. His indicates he recently had an evaluation looking at his veins to look for clots and nothing was found. They denied any known history of blood clots. He denies any trauma prior to this happening. There has been no neck pain with this. He did not have any coughing prior to the symptoms or straining. He did do some light house work on Sunday. PAST MEDICAL HISTORY: Includes diabetes mellitus complicated by peripheral neuropathy and peripheral artery disease resulting in chronic ulcers, amputations, and right foot chronic osteomyelitis. He has a history of hypertension, gout, and has had bilateral foot amputations. MEDICATIONS: He takes: 1. Aspirin 81 mg p.o. q. day. 2. metformin 1000 mg p.o. b.i.d. 3. Tramadol 50 mg p.o. 1 to 2 q.6 hours p.r.n. pain. 4. Lisinopril 40 mg p.o. q. day. 5. Indomethacin 50 mg p.o. t.i.d. 6. Colchicine 0.6 mg p.o. q. day. 7. Amlodipine 2.5 mg p.o. q. day. 8. Trulicity 1.5 mg subcu q. week. ALLERGIES: He has no known drug allergies. FAMILY HISTORY: There is no known family history of early stroke, although his father's medical history is not known. SOCIAL HISTORY: He does smoke approximately half a pack a day and has done so for years. He does not drink alcohol. His girlfriend denies that he uses any type of street drugs. He lives with his girlfriend and daughter. REVIEW OF SYSTEMS: On review of systems, there has been no known change of vision, albeit changes were noted on exam. He denied any difficulty with swallowing, speaking. There has been no chest pain, chest pressure, palpitations, shortness of breath. There has been difficulty controlling the left arm, but otherwise no known numbness or weakness. He notes he running into things on the left hand side for unclear reasons. There has been no change in bowel or bladder habit. He denies any weight loss. He has had some night sweats for 2 nights. There have been no high fevers. He denies any new joint pain. He does have significant problem with gout in his right knee at this at this time. He denies any psychiatric history. There have been no new rashes. PHYSICAL EXAM: His most recent blood pressure was 187/88, his pulse was 101 and regular, his respiratory rate was 8, his temperature was 97.5 degrees Fahrenheit. He had a regular cardiac rhythm. His lungs were clear to auscultation. There was no carotid bruit. He had bilateral foot amputations. I could feel his posterior tibial pulse on the left foot only. No cord was felt to palpation of his calves. He did have distal brown induration. He was awake, alert, complaining of right- sided head pain. When I saw him, he had already received morphine without improvement. He had pupils that were equal and responsive to light. He had full extraocular movements with no nystagmus. He had a left homonymous hemianopsia. His facial expression, sensation, and hearing were equal. Palate was upgoing. Tongue was midline. Sternocleido- mastoid and trapezius were 5/5 in strength. There was no pronator drift on the right hand side, on the left side, he had a left upward drift, which could be reproduced. In his lower extremities, he was able to get antigravity and hold for at least 5 seconds without difficulty other than some pain. He had full strength in his right upper extremity and in his left lower extremity. In his right lower extremity, all muscles that could be tested were strong. It was hard for him to move his right knee because of his pain from gout. His right knee was swollen and slightly warm. HIs left upper extremity had at least 4+/5 strength when he rosita his attention to that arm. He denied any asymmetries to pin prick, cold, or light touch; however, he had significant neglect to double simultaneous stimulation of touch over the left arm and leg. (He is a right- handed person.) He had no large toes to test Babinski. His reflexes were 1+ in the upper extremities. I did not test the right knee because of his pain, 1 + at the left knee, absent at the ankles. Gait was not tested because of clinical status. DIAGNOSTIC STUDIES/LAB DATA: Includes CBC with a white count elevated at 17.1, absolute neutrophils 13.9. His metabolic panel showed a chloride, which is low at 99. His glucose was initially 236, repeat is 261. His lactate was elevated at 2.1. Magnesium is low at 1.5. C-reactive protein was within normal limits as was his CK and troponin 1. His TSH was normal. He had a rapid influenza A and B, which were negative. His tox screen showed presumed positive urine opiates. He had CT of the brain, which was read as not showing any significant pathology. I did question if there could be a slight hypodensity in the left brain stem area and in the periventricular regions on my direct review. His CTA of the brain showed atherosclerotic disease, but no internal carotid artery stenosis, no aneurysm, vascular malformation, occlusion, stenosis. There was no comment on dissection. I called the radiologist directly to review it, and see if there was any evidence of venous thrombosis or dissection. No other pathology was noted based on this scan. He had a chest x-ray, which showed no active cardiopulmonary disease. IMPRESSION AND PLAN: Michael Medrano is a 48-year-old gentleman with a history of diabetes, which has been difficult to control, hypertension, who presents with 2 days of headache, nausea, vomiting, and 1+ days of difficulty with coordination running into things on left hand side followed by difficulty with left arm function. The combination of his left-sided neglect and homonymous hemianopsia suggests a right parietal lesion. What is unusual is the extent of headache, nausea, vomiting, along with his complaint of some dizziness/things moving, raising question of a posterior circulation event. To clarify, I have asked for MRI team to come in to do a stat MRI. This will further help us decide on safe disposition and treatment. CTA of brain and neck and CT of the brain were not revealing as to etiology or location of stroke. If he were to have a large posterior circulation stroke causing nausea and vomiting, then we would want to consider transferring him out for close monitoring at a higher level of care, given the potential of quick decompensation with increased edema. If this is a right parietal stroke, we will plan to admit to hospital to telemetry and provide further workup for stroke including echocardiogram with bubble study, fasting lipid profile, ongoing monitoring with telemetry. If there is no evidence of bleed or clear other cause of stroke, we will plan to treat with combination Plavix and aspirin given he was on aspirin upon admission. I am holding off on giving him Plavix until we know the results of the MRI. Given his difficulty appreciating the left side of space and his left arm, he should be kept on his right side or on his back to avoid trauma to his left arm. TIME SPENT: Over 80 minutes has been spent in direct patient care with further direction plan when MRI of brain is complete. MRI Brain could not be obtained secondary to claustrophobia. Medication was provided by ER to help obtain scan. Out of concern of hypotension and further losing ability to follow neurologic examination, full sedation was not provided. Case discussed with neurologist at [facility]. Given lack of pathology seen on CT scan, will admit to ICU under close observation, and repeat CT brain in the morning. Dr. Avila will be assuming the neurology coverage for the hospital in the morning, and case will be discussed with ongoing plans for our service to provide consultation. [id number]/[facility] #: [id number] SADIE
[2018-06-16 22:40] LABS: HDL Cholesterol 38.7 mg/dL
[2018-06-16] MEDS: Metoprolol Tartrate IV* 1 MG/ML 5 ML VIAL IV PRN (23:10)
[2018-06-16] MEDS: Heparin VIAL(*) 5000 UNITS/ML VIAL (FIVE THOUSAND) SUBCUT SCH (23:10)
[2018-06-16] MEDS: Insulin GLARGINE(*) 1 UNITS UNIT SUBCUT SCH (23:25)
[2018-06-16] MEDS: Insulin LISPRO* 1 UNITS UNIT SUBCUT SCH (23:25)
--- NOTE | 2018-06-17 00:06 | ADMNOTE ---
Subjective Date of Service: 06/16/18 Interval History: HISTORY AND PHYSICAL PCP: Dr. Strong CC: headache HPI:Patient is 47 year old man with h/o uncontrolled DM2, who presented to ER w / severe headache, 10/, 'the worst in my life." Stated headache present for 2 days, and seems behind RT eye. History obtained from ER physician, neurology consult, old chart. Patient cannot give history now. Headache was accompanied by nausea, vomiting, weakness. Also stated he could not control LT arm appropriately. Stroke was suspected in ER, and neurologist Dr. Monsivais evaluated patient. There was discussion of transfer to [place] due to risk of posterior circulation stroke, case was discussed w/ Dr. Harrington, transfer not arranged. Last known well around 2100 approx 24 hrs [employer]. MRI was desired in ER, patient received 4 mg ativan and 15 mg haldol due to agitation and claustrophobia. He did not tolerate the MRI. Family History: Findings - mother in 60s of pancreatic cancer, father unknown Social History: Findings - Single, disabled, lives alone, smokes 1PPD, down from 4PPD, rare EtOH, unknown drug use Past Medical History: Findings - Type 2 DM, HTN, gout, PAD, h/o osteomyelitis, chronic foot ulcer; PSH LT great toe amp, RT transmetatarsal amp Review of Systems - Measurements Intake and Output: Intake and Output Last 24 Hours 06/14/18 06/15/18 06/16/18 06/17/18 06:59 06:59 06:59 06:59 Intake Total 2049 Balance 2049 Weight 135.4 kg Intake: IV Fluids 2049 Oral 0 Other: Estimated Void Large # Voids 2 - Review of Systems General Comments: unable to participate in ROS due to confusion Objective Active Medications: Amlodipine Besylate (Norvasc Tab*) 2.5 mg PO DAILY [facility] Colchicine (Colcrys*) 0.6 mg PO DAILY [facility] Heparin Sodium (Porcine) (Heparin Vial(*)) 5,000 units SUBCUT Q8HR [facility] Last Admin: 06/16/18 23:10 Dose: 5,000 units Insulin Glargine (Lantus(*)) 15 units SUBCUT Q12H EFRAIN Last Admin: 06/16/18 23:25 Dose: 15 units Insulin Human Lispro (Humalog*) 0 units SUBCUT ACHS [facility]; Protocol Last Admin: 06/16/18 23:25 Dose: 6 units Lisinopril (Prinivil Tab*) 40 mg PO DAILY EFRAIN Metoprolol Tartrate (Lopressor Iv*) 5 mg IV Q6H PRN PRN Reason: BLOOD PRESSURE Last Admin: 06/16/18 23:10 Dose: 5 mg Vital Signs - 8 hr 06/16/18 06/16/18 06/16/18 19:15 19:21 19:51 Temperature Pulse Rate 115 108 108 Respiratory 11 14 Rate Blood Pressure 147/71 157/75 160/78 (mmHg) O2 Sat by Pulse 91 96 95 Oximetry 06/16/18 06/16/18 06/16/18 20:00 20:22 20:51 Temperature Pulse Rate 105 115 Respiratory 16 Rate Blood Pressure 156/82 178/82 (mmHg) O2 Sat by Pulse 95 96 Oximetry 06/16/18 06/16/18 06/16/18 21:00 21:22 21:48 Temperature 37.3 C Pulse Rate 108 Respiratory 20 21 20 Rate Blood Pressure 167/84 167/84 (mmHg) O2 Sat by Pulse 92 Oximetry 06/16/18 06/16/18 06/16/18 21:51 22:00 22:35 Temperature 37.7 C Pulse Rate 101 Respiratory 15 15 19 Rate Blood Pressure 180/84 192/91 (mmHg) O2 Sat by Pulse 92 Oximetry 06/16/18 06/16/18 06/16/18 22:40 22:43 22:47 Temperature Pulse Rate 106 104 Respiratory 18 19 17 Rate Blood Pressure 191/90 198/92 (mmHg) O2 Sat by Pulse 95 92 Oximetry 06/16/18 06/16/18 06/16/18 23:00 23:01 23:15 Temperature Pulse Rate 114 114 103 Respiratory 14 22 20 Rate Blood Pressure 201/111 184/95 (mmHg) O2 Sat by Pulse 95 95 96 Oximetry Oxygen Devices in Use Now: Nasal Cannula Appearance: confused, rolling around in bed Eyes: No Scleral Icterus Ears/Nose/Mouth/Throat: Clear Oropharnyx Neck: Trachea Midline Respiratory: Symmetrical Chest Expansion and Respiratory Effort, Clear to Auscultation Cardiovascular: No Edema, - - tachy, regular Abdominal: NL Sounds; No Tenderness; No Distention, No Hepatosplenomegaly Lymphatic: No Cervical Adenopathy Extremities: No Edema Skin: - - RT foot partial amp, 4mm ulcer, LT great toe amp Neurological: - - mumbling, dysarthric, quiet speech, moves RT hand purposefully , LT hand moves, cannot fully elevate to command, moving both legs, not answering questions appropriately, LT facial droop present Lines/Tubes/Other Access: Clean, Dry and Intact Peripheral IV Nutrition: - - NPO Result Diagrams: 06/16/18 12:46 06/17/18 04:50 Additional Lab and Data: Lab Results 06/16/18 06/16/18 06/16/18 Range/Units 12:17 12:46 12:46 WBC 17.1 H (3.5-10.8) 10^3/ul RBC 6.02 H (4.00-5.40) 10^6/ul Hgb 17.2 (14.0-18.0) g/dl Hct 51 (42-52) % MCV 85 (80-94) fL MCH 29 (27-31) pg MCHC 34 (31-36) g/dl RDW 14 (10.5-15) % Plt Count 367 (150-450) 10^3/ul MPV 7.5 (7.4-10.4) fL Neut % (Auto) 81.4 % Lymph % (Auto) 12.3 % [place] % (Auto) 5.2 % Eos % (Auto) 0.5 % Baso % (Auto) 0.6 % Absolute Neuts (auto) 13.9 H (1.5-7.7) 10^3/ul Absolute Lymphs (auto) 2.1 (1.0-4.8) 10^3/ul Absolute Monos (auto) 0.9 H (0-0.8) 10^3/ul Absolute Eos (auto) 0.1 (0-0.6) 10^3/ul Absolute Basos (auto) 0.1 (0-0.2) 10^3/ul Absolute Nucleated RBC 0 10^3/ul Nucleated RBC % 0 Sodium 136 (135-145) mmol/L Potassium 4.4 (3.5-5.0) mmol/L Chloride 99 L (101-111) mmol/L Carbon Dioxide 27 (22-32) mmol/L Anion Gap 10 (2-11) mmol/L BUN 15 (6-24) mg/dL Creatinine 1.03 (0.67-1.17) mg/dL Est GFR ( Amer) 93.3 (>60) Est GFR (Non-Af Amer) 77.1 (>60) BUN/Creatinine Ratio 14.6 (8-20) Glucose 261 H (70-100) mg/dL POC Glucose (mg/dL) 236 H (70-100) mg/dL Lactic Acid (0.5-2.0) mmol/L Calcium 10.0 (8.6-10.3) mg/dL Magnesium 1.5 L (1.9-2.7) mg/dL Total Bilirubin 0.60 (0.2-1.0) mg/dL AST 14 (13-39) U/L ALT 17 (7-52) U/L Alkaline Phosphatase 79 (34-104) U/L Total Creatine Kinase 83 (10-223) U/L Troponin I 0.01 (<0.04) ng/mL C-Reactive Protein 6.21 (<8.01) mg/L B-Natriuretic Peptide (<=100) pg/mL Total Protein 7.9 (6.4-8.9) g/dL Albumin 4.6 (3.2-5.2) g/dL Globulin 3.3 (2-4) g/dL Albumin/Globulin Ratio 1.4 (1-3) TSH Pending 06/16/18 06/16/18 Range/Units 12:46 12:46 WBC (3.5-10.8) 10^3/ul RBC (4.00-5.40) 10^6/ul Hgb (14.0-18.0) g/dl Hct (42-52) % MCV (80-94) fL MCH (27-31) pg MCHC (31-36) g/dl RDW (10.5-15) % Plt Count (150-450) 10^3/ul MPV (7.4-10.4) fL Neut % (Auto) % Lymph % (Auto) % [place] % (Auto) % Eos % (Auto) % Baso % (Auto) % Absolute Neuts (auto) (1.5-7.7) 10^3/ul Absolute Lymphs (auto) (1.0-4.8) 10^3/ul Absolute Monos (auto) (0-0.8) 10^3/ul Absolute Eos (auto) (0-0.6) 10^3/ul Absolute Basos (auto) (0-0.2) 10^3/ul Absolute Nucleated RBC 10^3/ul Nucleated RBC % Sodium (135-145) mmol/L Potassium (3.5-5.0) mmol/L Chloride (101-111) mmol/L Carbon Dioxide (22-32) mmol/L Anion Gap (2-11) mmol/L BUN (6-24) mg/dL Creatinine (0.67-1.17) mg/dL Est GFR ( Amer) (>60) Est GFR (Non-Af Amer) (>60) BUN/Creatinine Ratio (8-20) Glucose (70-100) mg/dL POC Glucose (mg/dL) (70-100) mg/dL Lactic Acid 2.1 H* (0.5-2.0) mmol/L Calcium (8.6-10.3) mg/dL Magnesium (1.9-2.7) mg/dL Total Bilirubin (0.2-1.0) mg/dL AST (13-39) U/L ALT (7-52) U/L Alkaline Phosphatase (34-104) U/L Total Creatine Kinase (10-223) U/L Troponin I (<0.04) ng/mL C-Reactive Protein (<8.01) mg/L B-Natriuretic Peptide 36 (<=100) pg/mL Total Protein (6.4-8.9) g/dL Albumin (3.2-5.2) g/dL Globulin (2-4) g/dL Albumin/Globulin Ratio (1-3) TSH Microbiology and Other Data: Microbiology 06/16/18 13:47 Influenza Types A,B Antigen - Final Nasal Specimen received for Influenza A/B Molecular testing Diagnostic Imaging: CT brain: no infarct CTA head/neck: no occlusion/stenosis CXR: no infiltrates EKG Data: NSR, left axis, Q waves V1-V4, old AMI Assess/Plan/Problems-Billing Assessment: 47 year old man w/ suspected RT parietal stroke, possible cerebellar involvement. - Patient Problems (1) Stroke due to embolism of right posterior cerebral artery Current Visit: Yes Status: Acute Priority: High Code(s): I63.431 - CEREBRAL INFRC DUE TO EMBOLISM OF RIGHT POST CEREBRAL ARTERY SNOMED Code(s): 844483398 Comment: -Appreciate assistance from Dr. Monsivais. Spoke with Dr. Avila -Concern re posterior circulation stroke, RT parietal, reordered MRI in AM -Have asked Dr. Rodriguez to take on service and help with conscious sedation vs intubatoin -Maintain BP in 160-170 systolic range in ICU, permissive hypertension. nicardipine gtt started - Aspirin - swallowing eval -Repeat head CT in AM with rt cerebellar density -Echocardiogram w/ bubble study r/o cardioembolic source -Hypercoaguable workup ordered due to age. (2) Type II diabetes mellitus Current Visit: No Status: Acute Priority: High Comment: - Patient not eating at the moment, but FS are running high - 15U Lantus, and cover w/ sliding scale Humalog - Hold metformin due to contrast exposure (3) DVT prophylaxis Current Visit: No Status: Acute Priority: Low Code(s): IIV6500 - SNOMED Code(s): 491063834 Comment: SQ heparin (4) Headache Current Visit: Yes Status: Acute Priority: Medium Code(s): R51 - HEADACHE SNOMED Code(s): 16145484 Comment: -differential would include migraine, meningitis, stroke. With no fever, focal deficits, meningitis seems unlikely. Status and Disposition: admitted to ICU for close monitoring
[2018-06-17] MEDS ORDERED: Colchicine* 0.6 MG TAB PO PRN (00:07)
[2018-06-17] MEDS ORDERED: Morphine 4 MG/ML VIAL (1 ml) 4 MG/ML VIAL ONE (00:09)
[2018-06-17] MEDS: Morphine 4 MG/ML VIAL (1 ml) 4 MG/ML VIAL IV PRN ×4 (00:13→08:30)
[2018-06-17] MEDS ORDERED: Ketorolac INJ* 30 MG/ML 1 ML VIAL IV PUSH PRN (02:05)
[2018-06-17] MEDS: Aspirin SUPP* 300 MG PR SCH ×2 (02:16→08:30)
[2018-06-17] MEDS: amLODIPine TAB* 5 MG PO SCH ×2 (02:52→07:33)
[2018-06-17] MEDS: Heparin VIAL(*) 5000 UNITS/ML VIAL (FIVE THOUSAND) SUBCUT SCH ×3 (05:27→23:20)
[2018-06-17 05:50] LABS: Calcium 9.4 mg/dL (8.6-10.3); Magnesium 1.5 mg/dL (1.9-2.7); Potassium 4.2 mmol/L (3.5-5.0)
[2018-06-17 05:56] LABS: BUN/Creatinine Ratio 11.1 (8-20); EGFR Non-African American 90.1 (>60); HDL Cholesterol 34.6 mg/dL
[2018-06-17] MEDS ORDERED: Magnesium Sulfate 2 GM IV* 2 GM/50 ML BAG IVPB ONE (06:35)
[2018-06-17] MEDS: Metoprolol Tartrate IV* 1 MG/ML 5 ML VIAL IV PRN (06:37)
[2018-06-17] MEDS ORDERED: niCARdipine 0.1MG/ML IVPREMIX* 20 MG/200 ML BAG IV SCH (07:00)
[2018-06-17] MEDS: Lisinopril TAB* 10 MG PO SCH (07:33)
[2018-06-17] MEDS ORDERED: Perflutren Lipid Microsphere* 3 ML VIAL ONE (08:05)
[2018-06-17] MEDS: Insulin LISPRO* 1 UNITS UNIT SUBCUT SCH ×4 (08:30→21:33)
[2018-06-17] MEDS ORDERED: LEVEMIR 30 UNIT SUBCUT SCH (09:00)
[2018-06-17] MEDS ORDERED: Colchicine* 0.6 MG TAB PO SCH (09:00)
--- NOTE | 2018-06-17 09:17 | PN ---
Subjective Interval History: unable to get MRI of brain yesterday. BP up to 180s this AM, not allowed pills. nicardipine gtt ordered. neglecting left side of body unless really emphasize. 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 LE atleast 4- groggy from morphine oriented to name. 12/07 pain Family History: Findings - mother in 60s of pancreatic cancer, father unknown Social History: Findings - Single, disabled, lives alone, smokes 1PPD, down from 4PPD, rare EtOH, unknown drug use Past Medical History: Findings - Type 2 DM, HTN, gout, PAD, h/o osteomyelitis, chronic foot ulcer; PSH LT great toe amp, RT transmetatarsal amp Objective Active Medications: Amlodipine Besylate (Norvasc Tab*) 2.5 mg PO DAILY [facility] Last Admin: 06/17/18 07:33 Dose: Not Given Aspirin (Asa Supp*) 300 mg TX DAILY [facility] Last Admin: 06/17/18 08:30 Dose: 300 mg Colchicine (Colcrys*) 0.6 mg PO DAILY PRN PRN Reason: PAIN/INFLAMMATION Heparin Sodium (Porcine) (Heparin Vial(*)) 5,000 units SUBCUT Q8HR [facility] Last Admin: 06/17/18 05:27 Dose: 5,000 units Nicardipine/Sodium Chloride (Cardene 0.1mg/Ml Ivpremix*) 20 mg in 200 mls @ 0 mls/hr IV .(as Initial Rate) [facility]; Protocol Last Admin: 06/17/18 09:12 Dose: 5 mls/hr Insulin Glargine (Lantus(*)) 15 units SUBCUT Q12H [facility] Last Admin: 06/16/18 23:25 Dose: 15 units Insulin Human Lispro (Humalog*) 0 units SUBCUT ACHS [facility]; Protocol Last Admin: 06/17/18 08:30 Dose: 9 units Ketorolac Tromethamine (Toradol Inj*) 30 mg IV PUSH Q6H PRN PRN Reason: PAIN Last Admin: 06/17/18 02:16 Dose: 30 mg Lisinopril (Prinivil Tab*) 40 mg PO DAILY [facility] Last Admin: 06/17/18 07:33 Dose: Not Given Metoprolol Tartrate (Lopressor Iv*) 5 mg IV Q6H PRN PRN Reason: BLOOD PRESSURE Last Admin: 06/17/18 06:37 Dose: 5 mg Morphine Sulfate (Morphine Vial*) 3 mg IV Q3H PRN PRN Reason: PAIN Last Admin: 06/17/18 08:30 Dose: 3 mg Vital Signs - 8 hr 06/17/18 06/17/18 06/17/18 02:00 02:02 02:40 Temperature Pulse Rate 100 102 Respiratory 14 16 16 Rate Blood Pressure 157/72 (mmHg) O2 Sat by Pulse 92 94 Oximetry 06/17/18 06/17/18 06/17/18 03:00 04:00 04:48 Temperature 99.8 F Pulse Rate 101 98 99 Respiratory 18 16 18 Rate Blood Pressure 173/74 (mmHg) O2 Sat by Pulse 91 89 93 Oximetry 06/17/18 06/17/18 06/17/18 05:00 05:01 05:27 Temperature Pulse Rate 105 108 Respiratory 16 14 15 Rate Blood Pressure 176/92 (mmHg) O2 Sat by Pulse 92 98 Oximetry 06/17/18 06/17/18 06/17/18 06:00 06:33 07:00 Temperature Pulse Rate 99 101 99 Respiratory 22 19 29 Rate Blood Pressure 198/82 201/90 (mmHg) O2 Sat by Pulse 93 87 88 Oximetry 06/17/18 06/17/18 06/17/18 07:01 07:02 07:19 Temperature Pulse Rate 99 91 95 Respiratory 21 16 11 Rate Blood Pressure 196/92 184/85 194/85 (mmHg) O2 Sat by Pulse 94 94 92 Oximetry 06/17/18 06/17/18 06/17/18 07:25 07:40 08:00 Temperature 98.9 F Pulse Rate 96 103 Respiratory 14 12 Rate Blood Pressure 164/85 184/97 (mmHg) O2 Sat by Pulse 95 91 Oximetry 06/17/18 08:30 Temperature Pulse Rate Respiratory 14 Rate Blood Pressure (mmHg) O2 Sat by Pulse Oximetry Oxygen Devices in Use Now: None Appearance: Eyes closed, asleep but easily arousable Ears/Nose/Mouth/Throat: NL Teeth, Lips, Gums Neck: NL Appearance and Movements; NL JVP Respiratory: Symmetrical Chest Expansion and Respiratory Effort, Clear to Auscultation Cardiovascular: NL Sounds; No Murmurs; No JVD, RRR Lymphatic: No Cervical Adenopathy, No Axillary Adenopathy Extremities: - - s/p toe amputations. Skin: - Neurological: - - oriented to name, very groggy Nutrition: Taking PO's Result Diagrams: 06/16/18 12:46 06/17/18 04:50 Additional Lab and Data: Laboratory Results - last 24 hr 06/16/18 06/16/18 06/16/18 12:17 12:46 12:46 WBC 17.1 H RBC 6.02 H Hgb 17.2 Hct 51 MCV 85 MCH 29 MCHC 34 RDW 14 Plt Count 367 MPV 7.5 Neut % (Auto) 81.4 Lymph % (Auto) 12.3 [place] % (Auto) 5.2 Eos % (Auto) 0.5 Baso % (Auto) 0.6 Absolute Neuts (auto) 13.9 H Absolute Lymphs (auto) 2.1 Absolute Monos (auto) 0.9 H Absolute Eos (auto) 0.1 Absolute Basos (auto) 0.1 Absolute Nucleated RBC 0 Nucleated RBC % 0 Sodium 136 Potassium 4.4 Chloride 99 L Carbon Dioxide 27 Anion Gap 10 BUN 15 Creatinine 1.03 Est GFR ( Amer) 93.3 Est GFR (Non-Af Amer) 77.1 BUN/Creatinine Ratio 14.6 Glucose 261 H POC Glucose (mg/dL) 236 H Lactic Acid Calcium 10.0 Magnesium 1.5 L Total Bilirubin 0.60 AST 14 ALT 17 Alkaline Phosphatase 79 Total Creatine Kinase 83 Troponin I 0.01 C-Reactive Protein 6.21 B-Natriuretic Peptide Total Protein 7.9 Albumin 4.6 Globulin 3.3 Albumin/Globulin Ratio 1.4 Triglycerides 122 Cholesterol 205 LDL Cholesterol 142 HDL Cholesterol 38.7 TSH 0.40 Urine Color Urine Appearance Urine pH Ur Specific [place] Urine Protein Urine Ketones Urine Blood Urine Nitrate Urine Bilirubin Urine Urobilinogen Ur Leukocyte Esterase Urine WBC (Auto) Urine RBC (Auto) Ur Squamous Epith Cells Urine Bacteria Urine Glucose Urine Opiates Screen Ur Barbiturates Screen Ur Phencyclidine Scrn Ur Amphetamines Screen U Benzodiazepines Scrn Urine Cocaine Screen U Cannabinoids Screen Influenza A (Rapid) Influenza B (Rapid) 06/16/18 06/16/18 06/16/18 12:46 12:46 13:56 WBC RBC Hgb Hct MCV MCH MCHC RDW Plt Count MPV Neut % (Auto) Lymph % (Auto) [place] % (Auto) Eos % (Auto) Baso % (Auto) Absolute Neuts (auto) Absolute Lymphs (auto) Absolute Monos (auto) Absolute Eos (auto) Absolute Basos (auto) Absolute Nucleated RBC Nucleated RBC % Sodium Potassium Chloride Carbon Dioxide Anion Gap BUN Creatinine Est GFR ( Amer) Est GFR (Non-Af Amer) BUN/Creatinine Ratio Glucose POC Glucose (mg/dL) Lactic Acid 2.1 H* Calcium Magnesium Total Bilirubin AST ALT Alkaline Phosphatase Total Creatine Kinase Troponin I C-Reactive Protein B-Natriuretic Peptide 36 Total Protein Albumin Globulin Albumin/Globulin Ratio Triglycerides Cholesterol LDL Cholesterol HDL Cholesterol TSH Urine Color Urine Appearance Urine pH Ur Specific [place] Urine Protein Urine Ketones Urine Blood Urine Nitrate Urine Bilirubin Urine Urobilinogen Ur Leukocyte Esterase Urine WBC (Auto) Urine RBC (Auto) Ur Squamous Epith Cells Urine Bacteria Urine Glucose Urine Opiates Screen Ur Barbiturates Screen Ur Phencyclidine Scrn Ur Amphetamines Screen U Benzodiazepines Scrn Urine Cocaine Screen U Cannabinoids Screen Influenza A (Rapid) Negative Influenza B (Rapid) Negative 06/16/18 06/16/18 06/16/18 14:50 14:50 19:44 WBC RBC Hgb Hct MCV MCH MCHC RDW Plt Count MPV Neut % (Auto) Lymph % (Auto) [place] % (Auto) Eos % (Auto) Baso % (Auto) Absolute Neuts (auto) Absolute Lymphs (auto) Absolute Monos (auto) Absolute Eos (auto) Absolute Basos (auto) Absolute Nucleated RBC Nucleated RBC % Sodium Potassium Chloride Carbon Dioxide Anion Gap BUN Creatinine Est GFR ( Amer) Est GFR (Non-Af Amer) BUN/Creatinine Ratio Glucose POC Glucose (mg/dL) 231 H Lactic Acid Calcium Magnesium Total Bilirubin AST ALT Alkaline Phosphatase Total Creatine Kinase Troponin I C-Reactive Protein B-Natriuretic Peptide Total Protein Albumin Globulin Albumin/Globulin Ratio Triglycerides Cholesterol LDL Cholesterol HDL Cholesterol TSH Urine Color Yellow Urine Appearance Clear Urine pH 6.0 Ur Specific [place] 1.017 Urine Protein 2+(100 mg/dl) A Urine Ketones Trace A Urine Blood Negative Urine Nitrate Negative Urine Bilirubin Negative Urine Urobilinogen Negative Ur Leukocyte Esterase Negative Urine WBC (Auto) 1+(6-10/hpf) A Urine RBC (Auto) Trace(0-2/hpf) Ur Squamous Epith Cells Present A Urine Bacteria Absent Urine Glucose 2+(150 mg/dl) A Urine Opiates Screen Presumptive positive A Ur Barbiturates Screen None detected Ur Phencyclidine Scrn None detected Ur Amphetamines Screen None detected U Benzodiazepines Scrn None detected Urine Cocaine Screen None detected U Cannabinoids Screen None detected Influenza A (Rapid) Influenza B (Rapid) 06/16/18 06/17/18 06/17/18 23:19 04:50 07:57 WBC RBC Hgb Hct MCV MCH MCHC RDW Plt Count MPV Neut % (Auto) Lymph % (Auto) [place] % (Auto) Eos % (Auto) Baso % (Auto) Absolute Neuts (auto) Absolute Lymphs (auto) Absolute Monos (auto) Absolute Eos (auto) Absolute Basos (auto) Absolute Nucleated RBC Nucleated RBC % Sodium 136 Potassium 4.2 Chloride 99 L Carbon Dioxide 27 Anion Gap 10 BUN 10 Creatinine 0.90 Est GFR ( Amer) 109.0 Est GFR (Non-Af Amer) 90.1 BUN/Creatinine Ratio 11.1 Glucose 272 H POC Glucose (mg/dL) 246 H 252 H Lactic Acid Calcium 9.4 Magnesium 1.5 L Total Bilirubin AST ALT Alkaline Phosphatase Total Creatine Kinase Troponin I C-Reactive Protein B-Natriuretic Peptide Total Protein Albumin Globulin Albumin/Globulin Ratio Triglycerides 143 Cholesterol 187 LDL Cholesterol 124 HDL Cholesterol 34.6 TSH Urine Color Urine Appearance Urine pH Ur Specific [place] Urine Protein Urine Ketones Urine Blood Urine Nitrate Urine Bilirubin Urine Urobilinogen Ur Leukocyte Esterase Urine WBC (Auto) Urine RBC (Auto) Ur Squamous Epith Cells Urine Bacteria Urine Glucose Urine Opiates Screen Ur Barbiturates Screen Ur Phencyclidine Scrn Ur Amphetamines Screen U Benzodiazepines Scrn Urine Cocaine Screen U Cannabinoids Screen Influenza A (Rapid) Influenza B (Rapid) Microbiology and Other Data: Microbiology 06/16/18 23:36 Nasal Nasal Screen MRSA (PCR) - Final Mrsa Not Detected 06/16/18 13:47 Nasal Influenza Types A,B Antigen - Final Specimen received for Influenza A/B Molecular testing Diagnostic Imaging: CT brain: no infarct CTA head/neck: no occlusion/stenosis CXR: no infiltrates EKG Data: NSR, left axis, Q waves V1-V4, old AMI Assess/Plan/Problems-Billing Assessment: 47 year old man w/ suspected RT parietal stroke, possible cerebellar involvement. - Patient Problems (1) Stroke due to embolism of right posterior cerebral artery Current Visit: Yes Status: Acute Priority: High Code(s): I63.431 - CEREBRAL INFRC DUE TO EMBOLISM OF RIGHT POST CEREBRAL ARTERY SNOMED Code(s): 903910404 Comment: -Appreciate assistance from Dr. Monsivais. Spoke with Dr. Avila -Concern re posterior circulation stroke, RT parietal, reordered MRI in AM -Have asked Dr. Rodriguez to take on service and help with conscious sedation vs intubatoin -Maintain BP in 160-170 systolic range in ICU, permissive hypertension. nicardipine gtt started - Aspirin - swallowing eval -Repeat head CT in AM with rt cerebellar density -Echocardiogram w/ bubble study r/o cardioembolic source -Hypercoaguable workup ordered due to age. (2) Chronic osteomyelitis of right foot Current Visit: No Status: Acute Code(s): M86.671 - OTHER CHRONIC OSTEOMYELITIS, RIGHT ANKLE AND FOOT SNOMED Code(s): 7912009331939034 Comment: S/P R TMA (3) Full code status Current Visit: No Status: Acute Code(s): Z78.9 - OTHER SPECIFIED HEALTH STATUS SNOMED Code(s): 698464578 (4) HTN (hypertension) Current Visit: No Status: Acute Code(s): I10 - ESSENTIAL (PRIMARY) HYPERTENSION SNOMED Code(s): 24887911 Comment: nicardipine gtt, BP 160-170 (5) PAD (peripheral artery disease) Current Visit: No Status: Acute Code(s): I73.9 - PERIPHERAL VASCULAR DISEASE , UNSPECIFIED SNOMED Code(s): 841606620 Comment: continue aspirin of note will be on started plavix for CVA but after MRI and olga clearance. (6) Type II diabetes mellitus Current Visit: No Status: Acute Priority: High Comment: - Patient not eating at the moment, but FS are running high - 15U Lantus, and cover w/ sliding scale Humalog - Hold metformin due to contrast exposure Status and Disposition: admitted to ICU for close monitoring
[2018-06-17] MEDS ORDERED: fentaNYL* 50 MCG/ML 5 ML VIAL (250 MCG VIAL) ONE (09:50)
[2018-06-17] MEDS ORDERED: Propofol* 10 MG/ML 20 ML BTL ONE (09:50)
[2018-06-17] MEDS ORDERED: Etomidate* 2 MG/ML 20 ML VIAL (40 MG) ONE (09:50)
[2018-06-17] MEDS ORDERED: Midazolam* 1 MG/ML 10 ML VIAL (10 MG) ONE (09:50)
[2018-06-17] MEDS ORDERED: Succinylcholine* 20 MG/ML 10 ML VIAL ONE ×2 (09:50→11:24)
[2018-06-17] MEDS ORDERED: fentaNYL* 50 MCG/ML 2 ML VIAL (100 MCG VIAL) ONE (11:39)
[2018-06-17] MEDS ORDERED: Rocuronium* 10 MG/ML VIAL IV ONE (12:15)
--- NOTE | 2018-06-17 12:18 | CONS ---
NEUROLOGY CONSULTATION FOLLOWUP NOTE: DATE OF CONSULT: 06/17/18 HOSPITALIST: Dr. Morales. DRIVER EXAMINER: Dr. Rodriguez. LOCATION: He is in ICU bed 3. CHIEF COMPLAINT: Nausea, vomiting, weakness. INTERVAL HISTORY: Since yesterday, Michael has gotten worse. He complains of a bad headache behind his right eye. He has been lethargic. He did get some morphine earlier, but remains lethargic. He has been not using his left hand worse than the day prior, according to his girlfriend who is present this morning. He denies double vision, but he is still lethargic. It is hard to maintain his attention. MEDICATIONS: Medications are reviewed and he is on amlodipine 2.5 mg p.o. daily , Aspirin 300 mg NH daily, colchicine 0.6 mg p.o. p.r.n., heparin 5000 units subcu q.8 hours, sliding scale insulin, ketorolac 30 mg IV q.6 hours p.r.n. pain , lisinopril 40 mg p.o. daily, metoprolol 5 mg IV q.6 hours p.r.n. blood pressure parameters, morphine 3 mg IV q.3 hours p.r.n. pain, nicardipine drip. PHYSICAL EXAMINATION: On examination, he is lethargic. Heart rate is running in the high 90s to low 100s, respiratory rate 14 to 17, oxygen saturation is 92% . Blood pressure most recently 131/84; has been very variable over the last couple of days. Heart tones are distant, but I do not hear murmurs. Neck is thick and I do not hear any cervical bruits anteriorly or posteriorly. Neurological exam, pupils are about 2.5 mm and react weakly to light. I cannot get him to keep his eyes open very well, but he seems to have full eye movements. Eye movements are very slow. I could not elicit nystagmus. Facial musculature was notable for central pattern left facial weakness. Speech was dysarthric. Tongue protrudes weakly in the midline. Palate seems to rise symmetrically. He responds to nasal tickle and light touch on the face symmetrically. Motor exam reveals little use of the left arm. He seems to clench it, but cannot raise it voluntarily. He restlessly moves the left leg. He has distal amputation of the right leg. He has reasonably good forceful use of the right hand. He is able to perform a [id number] and move it on the right slowly. He is not able to perform it on the left. DIAGNOSTIC STUDIES/LAB DATA: I reviewed a CT angiogram of the neck and brain from yesterday. He has a dominant left vertebral artery and a somewhat small basilar artery, but no occlusion. The right vertebral artery ends in the right posterior inferior cerebellar artery. I reviewed his brain CTs from yesterday and today. There is some hypodensity in the right cerebellum and possibly right nayeli. There is also a movement artifact. Other laboratory data from today notable for [id number] glucose 252. IMPRESSION: Possible progressive brainstem syndrome. He does not appear to have any major posterior circulation vessel disease, but it is a suboptimal study. I think he needs an MRI scan of the brain to sort things out. He was not able to tolerate it yesterday due to severe claustrophobia. Given his progressive decline, I think we should go ahead and intubate him to obtain an MRI of the brain without contrast. I have discussed my thoughts previously with Dr. Morales and currently with Dr. Rodriguez, who will proceed with intubation. I alerted MRI scan technicians to the plan as well. I will continue to follow him up with you. [id number]/[facility] #: [id number] SADIE
[2018-06-17] MEDS: Insulin GLARGINE(*) 1 UNITS UNIT SUBCUT SCH (12:27)
[2018-06-17] MEDS: Propofol* 100 ML ONE ×2 (12:37→14:12)
--- NOTE | 2018-06-17 14:30 | ECHO ---
Patient: ALYSSA MUIR [facility] Rec#: [id number] : 1970 Date: 06/17/2018 Age: 47y Height: 193 cm / 76.0 in Weight: 141 kg / 310.8 lbs Sex: M BSA: 2.67 Room#: ICU-3 Admit Date#: 06/16/2018 Type: Inpatient Referring: Cruzito Whiteside MD Reading: Jun Montes MD Coach Driver: Cecile Nicolas RDCS CC: Jim Strong MD Transthoracic Echocardiogram Indication: CVA BP: 198/82 HR: 96 Rhythm: NSR Findings History: DM, peripheral neuropathy, PAD, HTN, gout. Technical Comments: The study is technically difficult. The study is technically limited due to patient body habitus. Completed at 1130. Left Ventricle: The left ventricular chamber size is normal. Mild to moderate concentric left ventricular hypertrophy is observed. Global left ventricular wall motion and contractility are within normal limits. There is normal left ventricular systolic function. The estimated ejection fraction is 55-60%. Abnormal left ventricular diastolic function is observed. Abnormal left ventricular diastolic filling is observed, consistent with impaired relaxation. Left Atrium: The left atrium is mildly dilated. Right Ventricle: Moderator Band present. The right ventricle is mildly dilated. The right ventricle wall thickness is mildly increased. The right ventricular global systolic function is mildly reduced. Right Atrium: The right atrium is moderately dilated. Interatrial septum appears intact without evidence of shunting. The bubble study is negative. A patent foramen ovale is not demonstrated with color Doppler and agitated contrast. Aortic Valve: The aortic valve is trileaflet. There is mild thickening of the left coronary cusp. There is a trace of aortic regurgitation. There is no evidence of aortic stenosis. Mitral Valve: The mitral valve leaflets are mildly thickened. There is a trace of mitral regurgitation. There is no evidence of mitral stenosis. Tricuspid Valve: The tricuspid valve leaflets are normal. There is trace tricuspid regurgitation. Unable to estimate the right ventricular systolic pressure. There is no tricuspid stenosis. Pulmonic Valve: The pulmonic valve appears normal. There is a trace pulmonic regurgitation. There is no pulmonic stenosis. Pericardium: There is no significant pericardial effusion. A pericardial fat pad is visualized. Aorta: There is mild dilatation of the ascending aorta. There is no dilatation of the aortic arch. The aortic root is normal in size. Pulmonary Artery: The main pulmonary artery is not well visualized. Venous: The inferior vena cava is dilated. There is an approximate 50% respiratory change in the inferior vena cava dimension. Contrast: Definity was used to optimize study. 3 mL of diluted definity were utilized. Intravenous contrast was used to enhance endocardial border definition. Intravenous agitated saline contrast was used to assess intracardiac shunting. Images 38 and 39. Summary: There was not any prior study for comparison. Conclusions Mild to moderate concentric left ventricular hypertrophy is observed. Global left ventricular wall motion and contractility are within normal limits. There is normal left ventricular systolic function. The estimated ejection fraction is 55-60%. A patent foramen ovale is not demonstrated with color Doppler and agitated contrast. There is mild thickening of the left coronary cusp. There is a trace of aortic regurgitation. There is a trace of mitral regurgitation. There is trace tricuspid regurgitation. Unable to estimate the right ventricular systolic pressure. There is no significant pericardial effusion. Measurements Name Value Normal Range RVIDd (AP) 2D 3.8 cm (0.9 - 2.6) RVDdMajor (2D) 4.5 cm (2.2 - 4.4) RVAW (2D) 0.8 cm (0.2 - 0.5) RAd ISD 4CH 7.1 cm (3.4 - 4.9) RA (A4C)W 5.8 cm (2.9 - 4.6) IVSd (2D) 1.3 cm (0.6 - 1) LVPWd (2D) 1.4 cm (0.6 - 1) LVIDd (2D) 4.9 cm (3.6 - 5.4) LVIDs (2D) 3.4 cm - LV FS (2D) 30 % (25 - 45) Aortic Annulus 2.7 cm (1.4 - 2.6) Ao root diameter (2D) 3.5 cm (2.1 - 3.5) Ascending Ao 4 cm (2.1 - 3.4) Aortic arch 2.9 cm (1.8 - 3.4) LA dimension (AP) 2D 4.4 cm (2.3 - 3.8) LAd ISD 4CH 7 cm (2.9 - 5.3) LA ISD 4CH W 5 cm (2.5 - 4.5) Name Value Normal Range LA ESV BP (A/L) index 40 ml/m2 - Name Value Normal Range MV E-wave Vmax 0.9 m/sec - MV deceleration time 222 msec - MV A-wave Vmax 1.2 m/sec - MV E:A ratio 0.7 ratio - LV septal e' Vmax 0.05 m/sec - LV lateral e' Vmax 0.05 m/sec - LV E:e' septal ratio 18 ratio - LV E:e' lateral ratio 18 ratio - Name Value Normal Range AV Vmax 1.1 m/sec - AV VTI 22 cm - AV peak gradient 5 mmHg - AV mean gradient 3 mmHg - LVOT diameter 2.3 cm - LVOT Vmax 1.1 m/sec - LVOT VTI 25 cm - LVOT peak gradient 5 mmHg - LVOT mean gradient 3 mmHg - CR Vmax 0.9 m/sec - Name Value Normal Range IVC diameter 2.4 cm - Name Value Normal Range PV Vmax 0.9 m/sec - PV peak gradient 3 mmHg -
[2018-06-17] MEDS: Propofol* 100 ML IV SCH ×4 (16:09→22:33)
--- NOTE | 2018-06-17 17:44 | PN ---
Progress Note - Progress Note Date of Service: 06/17/17 Note: I intubated the patient earlier today so that MRI could be obtained. He is currently sedated with a propofol drip, and has been sent for an MRI. No BP lowering drugs needed after intubation. Future management will be per MRI findings - neurology service to advise.
[2018-06-17] MEDS ORDERED: Famotidine IV * 20 MG in NS 0.9% 100 ML* 100 ML IVPB SCH (19:00)
[2018-06-17] MEDS ORDERED: Famotidine IV* 10 MG/ML 2 ML (20 mg) ONE (19:13)
[2018-06-17] MEDS: Chlorhexidine MOUTHWASH 0.12%* 15 ML UDC TOPICAL SCH ×2 (19:42→23:21)
[2018-06-17] MEDS: Famotidine IV* 10 MG/ML 2 ML (20 mg) IV SLOW PU SCH (19:59)
[2018-06-17] MEDS: fentaNYL* 50 MCG/ML 2 ML VIAL (100 MCG VIAL) IV SLOW PU PRN (20:00)
[2018-06-17] MEDS ORDERED: Famotidine IV* 10 MG/ML 2 ML (20 mg) IV SLOW PU SCH (20:00)
--- NOTE | 2018-06-17 20:02 | PRO ---
PROCEDURE NOTE: DATE OF PROCEDURE: 06/17/18 PROCEDURE: Endotracheal intubation. INDICATIONS: This patient is a 47-year-old white male who was admitted last night with a probable stroke. He was seen by Neurology, who feel that an MRI is necessary, but the patient is extremely claustrophobic, and multiple attempts to obtain an MRI have been unsuccessful. Neurology recommended intubation, if necessary, to perform the MRI. The patient was informed of this and he agreed. DESCRIPTION OF PROCEDURE: Therefore, the patient was intubated with a size 8 endotracheal tube under videoscopic control after sedation with 250 mcg of fentanyl and 5 mcg of Versed along with 20 mg of etomidate. Airway was entered without difficulty and the patient tolerated the procedure well. After intubation, the patient was placed on a propofol infusion. Postprocedure chest x-ray showed the tube in the appropriate position and there was no problem with hypotension during the procedure. [id number]/[facility] #: [id number] MTDD
[2018-06-18] MEDS: Insulin GLARGINE(*) 1 UNITS UNIT SUBCUT SCH ×3 (00:15→23:41)
[2018-06-18] MEDS: Propofol* 100 ML IV SCH ×5 (00:35→08:44)
[2018-06-18] MEDS: Chlorhexidine MOUTHWASH 0.12%* 15 ML UDC TOPICAL SCH ×3 (04:34→11:18)
[2018-06-18] MEDS: fentaNYL* 50 MCG/ML 2 ML VIAL (100 MCG VIAL) IV SLOW PU PRN ×2 (05:09→14:06)
[2018-06-18] MEDS: Heparin VIAL(*) 5000 UNITS/ML VIAL (FIVE THOUSAND) SUBCUT SCH ×3 (05:54→20:50)
[2018-06-18 06:13] LABS: Hematocrit 46 % (42-52); Hemoglobin 15.5 g/dl (14.0-18.0); Mean Corpuscular HGB Conc 34 g/dl (31-36); Mean Corpuscular Hemoglobin 29 pg (27-31); Mean Corpuscular Volume 84 fL (80-94); Mean Platelet Volume 7.5 fL (7.4-10.4); Platelet Count 279 10^3/ul (150-450); Red Blood Count 5.44 10^6/ul (4.00-5.40); Red Cell Distribution Width 14 % (10.5-15); White Blood Count 13.6 10^3/ul (3.5-10.8)
[2018-06-18 06:29] LABS: Albumin 3.9 g/dL (3.2-5.2); Albumin/Globulin Ratio 1.3 (1-3); BUN/Creatinine Ratio 13.2 (8-20); Calcium 9.4 mg/dL (8.6-10.3); EGFR African American 90.2 (>60); EGFR Non-African American 74.6 (>60); Globulin 2.9 g/dL (2-4); Potassium 3.8 mmol/L (3.5-5.0); Total Bilirubin 0.4 mg/dL (0.2-1.0); Total Protein 6.8 g/dL (6.4-8.9)
[2018-06-18] MEDS: Famotidine IV* 10 MG/ML 2 ML (20 mg) IV SLOW PU SCH (08:02)
[2018-06-18] MEDS: Insulin LISPRO* 1 UNITS UNIT SUBCUT SCH ×4 (08:02→20:49)
[2018-06-18] MEDS: amLODIPine TAB* 5 MG PO SCH (08:03)
[2018-06-18] MEDS: Lisinopril TAB* 10 MG PO SCH (08:03)
[2018-06-18 14:54] LABS: LAC APTT 26 sec (26 - 36); Prothrombin Time(LAC) 11.5 sec
[2018-06-18] MEDS ORDERED: Lidocaine 2% PF * 5 ML VIAL ONE ×2 (15:12→15:15)
[2018-06-18] MEDS ORDERED: LORazepam INJ* 2 MG/ML 1 ML VIAL IV PUSH ONE (15:15)
[2018-06-18] MEDS ORDERED: fentaNYL* 50 MCG/ML 2 ML VIAL (100 MCG VIAL) IV ONE (15:15)
--- NOTE | 2018-06-18 15:28 | PN ---
NEUROLOGY FOLLOWUP NOTE: DATE OF FOLLOWUP: 06/18/18 LOCATION: He is in ICU bed 3. [employer]CR[employer] SUPERVISOR: Dr. Rodriguez. CHIEF COMPLAINT: Headache, left-sided weakness, and visual loss. INTERVAL HISTORY: Since yesterday, Michael was intubated and then extubated this morning. He was intubated to get an MRI scan. The MRI scan was done and was interpreted as showing some chronic likely small-vessel disease, but no evidence of acute ischemia. I reviewed the images. There is a small lesion in the left midline nayeli, which looks chronic and may be a small old infarct. 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 With focused interest in the right parietal region, there may be increased signal and FLAIR and T2 in the cortical ribbon in the parieto-occipital region. Unfortunately, it is not a contrasted scan. Currently, Michael complains of a right hemicranial headache. He apparently did not have a headache after he was extubated according to his family who is present. However, as the anesthesia has worn off, he started to complain of a headache. He denies problems with his vision. He denies any numbness. His family notes that he is getting more interactive and his sense of humor seems to be returning. MEDICATIONS: Reviewed and he is on: 1. Amlodipine 2.5 mg p.o. daily. 2. Colchicine 0.6 mg p.o. p.r.n. 3. Fentanyl 50 mcg IV q.4 hours p.r.n. pain. 4. Heparin 5000 units subcutaneous q.8 hours. 5. Sliding scale insulin. 6. Ketorolac 30 mg IV q.6 hours as needed for pain. 7. Lisinopril 40 mg p.o. daily. 8. Metoprolol 5 mg IV q.6 hours as needed for systolic blood pressure greater than 180. 9. Morphine 3 mg IV q.3 hours as needed for pain. 10. Nicardipine drip based on blood pressure parameters. PHYSICAL EXAMINATION: He has been febrile with a temperature fairly steady at 100 to 100.4 since early this morning. Blood pressures running about 160/70 to 80, heart rate generally running about 100 to 115 and in sinus on the monitor, respiratory rate is 20, and oxygen saturation is 96% on supplemental oxygen. Heart tones sound normal. I do not hear any murmurs. Skin is warm and a little bit moist. Neck is somewhat limited to about 2 fingerbreadths below the sternum and he then complains of neck discomfort. Pupils respond sluggishly from about 4 down to about 3 mm. Eye movements tend to deviate to the right, but he can bring them to midline. I cannot get him to look to the left. He does not respond to visual threat from the left side, but he does from the right. He is able to finger count accurately otherwise. Facial musculature is notable for mild flattening of the left nasolabial fold. Facial sensation to light touch is reported as symmetric. Speech is mildly dysarthric. Motor exam reveals good strength and volitional movement of the right arm and right leg and to a less extent the left leg. He seems to have neglect of the left arm. When asked to do finger taps with the right hand, he can perform them fairly normally; when asked to do them with the left hand, he continues with the right hand. He appreciates light touch in both hands symmetrically. Language is fluent. He is somnolent, but is able to maintain a conversation. LABORATORY STUDIES: Notable for an elevated white blood cell count at 13,600, which is down from 17.1 yesterday. He no longer has a left shift. Chemistries notable for glucose 204 this morning; otherwise, a normal chemistry profile including liver enzymes. He has had a number of other studies notable for negative prothrombin gene mutation, negative HIV 1 and 2, negative anticardiolipin antibodies, normal protein C and protein S activity. 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 I am wondering at this point if he might have an encephalitis. I have ordered an EEG and discussed the case with Dr. Rodriguez, who is going to perform a lumbar puncture. I will tentatively start him on acyclovir. We will send out studies for Lyme disease and serum and spinal fluid as well as PCR for herpes simplex viruses 1 and 2 and also for West Nile virus antibodies and PCR. We will check a spinal fluid VDRL and also cryptococcal antigen and spinal fluid. I will do some studies for vasculitides and also paraneoplastic antibodies on spinal fluid and serum. I will await results of his EEG and we will start acyclovir at least for the time being. I do not see anything to suggest an actual bacterial infection. So , we will hold off on antibiotics, other than perhaps doxycycline on the outside chance that this is central nervous system Lyme disease. We will continue to follow him. [id number]/[facility] #: [id number] SADIE
[2018-06-18] MEDS: Acyclovir IV(*) 800 MG in NS 0.9% 250 ML* 250 ML IVPB SCH ×2 (16:11→22:19)
[2018-06-18 16:12] LABS: Body Fluid Source Cerebral Spinal
[2018-06-18 16:34] LABS: CSF Glucose 135 mg/dL (40-70)
--- NOTE | 2018-06-18 17:00 | PN ---
Date of Service: 06/18/18 Critical Care Services: Patient extubated this AM without incident. MRI is largely unrevealing, but patient continues to have neurologicv deficits (slurred speech and lefty-sided neglect). Vital Signs: Temp Pulse Resp BP SpO2 FiO2 100.2 F 99 24 147/78 92 30 Physical Exam: Gen:Somnolent but arousable. HEENT: No facial asymmetry Lungs: Clear Cardiac: Reg rhythm Extremities: No cyanosis or edema. Missing all toes of right foot and large toe of left foot. Neuro: As mentioned earlier Fluid Balance (Past 24 Hours): 06/17/18 06/18/18 06:59 06:59 Intake Total 2049 907 Output Total 600 2010 Balance 1450 -1103 Weight 300 lb 294 lb Intake: IV Fluids 2049 114 NS (0.9%) 114 Medicated IV 793 CC - Nicarpidine/Cardene 63 CC - Propofol/Diprivan 730 Oral 0 0 Output: Urine 600 400 Castellanos 1610 Other: Estimated Void Large # Voids 1 Labs: Laboratory Results - last 24 hr 06/16/18 06/16/18 06/17/18 21:59 21:59 04:50 WBC RBC Hgb Hct MCV MCH MCHC RDW Plt Count MPV PT 11.5 INR 1.0 Lupus Anticoag aPTT 26 dRVVT Screen Ratio 0.9 Lupus Anticoag Interp See comment Protein C Activity 116 APC Resist (Factor V) 3.1 APC Resistance Interp See comment Protein S Activity 119 Antithrombin III Activ 94 Sodium Potassium Chloride Carbon Dioxide Anion Gap BUN Creatinine Est GFR ( Amer) Est GFR (Non-Af Amer) BUN/Creatinine Ratio Glucose POC Glucose (mg/dL) Calcium Total Bilirubin AST ALT Alkaline Phosphatase Total Protein Albumin Globulin Albumin/Globulin Ratio Fluid Source Fluid Volume Fluid Color Fluid Appearance CSF Cell Count Tube # CSF Glucose CSF Total Protein 06/17/18 06/17/18 06/18/18 12:22 21:23 06:05 WBC 13.6 H RBC 5.44 H Hgb 15.5 Hct 46 MCV 84 MCH 29 MCHC 34 RDW 14 Plt Count 279 MPV 7.5 PT INR Lupus Anticoag aPTT dRVVT Screen Ratio Lupus Anticoag Interp Protein C Activity APC Resist (Factor V) APC Resistance Interp Protein S Activity Antithrombin III Activ Sodium Potassium Chloride Carbon Dioxide Anion Gap BUN Creatinine Est GFR ( Amer) Est GFR (Non-Af Amer) BUN/Creatinine Ratio Glucose POC Glucose (mg/dL) 181 H 206 H Calcium Total Bilirubin AST ALT Alkaline Phosphatase Total Protein Albumin Globulin Albumin/Globulin Ratio Fluid Source Fluid Volume Fluid Color Fluid Appearance CSF Cell Count Tube # CSF Glucose CSF Total Protein 06/18/18 06/18/18 06/18/18 06:05 11:43 15:50 WBC RBC Hgb Hct MCV MCH MCHC RDW Plt Count MPV PT INR Lupus Anticoag aPTT dRVVT Screen Ratio Lupus Anticoag Interp Protein C Activity APC Resist (Factor V) APC Resistance Interp Protein S Activity Antithrombin III Activ Sodium 138 Potassium 3.8 Chloride 101 Carbon Dioxide 28 Anion Gap 9 BUN 14 Creatinine 1.06 Est GFR ( Amer) 90.2 Est GFR (Non-Af Amer) 74.6 BUN/Creatinine Ratio 13.2 Glucose 204 H POC Glucose (mg/dL) 185 H Calcium 9.4 Total Bilirubin 0.40 AST 13 ALT 14 Alkaline Phosphatase 68 Total Protein 6.8 Albumin 3.9 Globulin 2.9 Albumin/Globulin Ratio 1.3 Fluid Source Cerebral spinal Fluid Volume 3 Fluid Color Colorless Fluid Appearance Clear CSF Cell Count Tube # 4 CSF Glucose CSF Total Protein 06/18/18 15:50 WBC RBC Hgb Hct MCV MCH MCHC RDW Plt Count MPV PT INR Lupus Anticoag aPTT dRVVT Screen Ratio Lupus Anticoag Interp Protein C Activity APC Resist (Factor V) APC Resistance Interp Protein S Activity Antithrombin III Activ Sodium Potassium Chloride Carbon Dioxide Anion Gap BUN Creatinine Est GFR ( Amer) Est GFR (Non-Af Amer) BUN/Creatinine Ratio Glucose POC Glucose (mg/dL) Calcium Total Bilirubin AST ALT Alkaline Phosphatase Total Protein Albumin Globulin Albumin/Globulin Ratio Fluid Source Fluid Volume Fluid Color Fluid Appearance CSF Cell Count Tube # CSF Glucose 135 H CSF Total Protein 68 H Studies: Lumbar puncture: Results pending Nutrition: Oral intake poor. Impression: Neurologic disorder of unclear etiology. Fever and leukocytosis raise suspicion for a meninoencephalitis. Plan: 1. General supportive care. 2. Await results of lumbar puncture. 3. Start empiric Rx with Acyclovir and doxycycline.
[2018-06-18] MEDS: DOXYcycline IV* 100 MG in NS 0.9% 250 ML* 250 ML IVPB SCH (17:28)
[2018-06-18 18:02] LABS: Body Fluid Mono 16 %
--- NOTE | 2018-06-18 20:51 | PRO ---
DATE OF PROCEDURE: 06/18/18 PROCEDURE: Lumbar puncture. DESCRIPTION OF THE PROCEDURE: A 47-year-old white male was admitted with a change in mental status of unclear etiology and was evaluated by Neurology who felt that a lumbar puncture was necessary. The patient was placed in the left lateral decubitus position and the L5-S1 intervertebral space was entered and approximately 5 cc of clear fluid was withdrawn. The patient tolerated the procedure well and the fluid will be sent off for cell count and appropriate cultures and serologies. [id number]/[facility] #: [id number] MTDD
[2018-06-18 21:05] LABS: Phospholipid Ab IgG < 9.4 GPL; Phospholipid Ab IgM, S < 9.4 MPL
--- NOTE | 2018-06-18 21:08 | EEG ---
ELECTROENCEPHALOGRAPHY: DATE OF STUDY: 06/18/18 REFERRING PHYSICIAN: Dr. Rodriguez. LOCATION: He is an inpatient in the ICU bed 3. CLINICAL PROBLEM: Left-sided visual neglect and left-sided weakness. MRI of the brain does not reveal any evidence of cerebral infarctions. Rule out seizure activity. MEDICATIONS: Include, 1. Morphine. 2. Lopressor. 3. Toradol. 4. Prinivil. 5. Norvasc. 6. Insulin. REPORT: This 16-channel EEG is remarkable for background rhythms at the onset of the tracing consisting of high voltage central and parasagittal slowing in the delta range. Mixed beta and theta rhythms are seen bitemporally. The patient is clinically drowsy. Parasagittal sleep spindles are seen periodically. Activation procedures are not attempted. The patient does not move his left hand to command. Near the end of the tracing, the patient appears to waken with central and bitemporal theta rhythms and some bifrontal beta rhythms. There is no clear alpha rhythm. There are no clinical events. There are no focal or or epileptiform discharges. CLINICAL IMPRESSION: Mildly abnormal EEG due to slowing and disorganization of background rhythms and excessive sleepiness. There are no focal or epileptiform features to this recording. [id number]/[facility] #: [id number] [facility]
[2018-06-19] MEDS: DOXYcycline IV* 100 MG in NS 0.9% 250 ML* 250 ML IVPB SCH ×2 (03:05→14:59)
[2018-06-19] MEDS: Acyclovir IV(*) 800 MG in NS 0.9% 250 ML* 250 ML IVPB SCH ×3 (06:12→21:52)
[2018-06-19] MEDS: Heparin VIAL(*) 5000 UNITS/ML VIAL (FIVE THOUSAND) SUBCUT SCH ×4 (06:13→21:56)
[2018-06-19] MEDS: Insulin LISPRO* 1 UNITS UNIT SUBCUT SCH ×4 (08:34→21:51)
[2018-06-19] MEDS: amLODIPine TAB* 5 MG PO SCH (08:34)
[2018-06-19] MEDS: Lisinopril TAB* 10 MG PO SCH (08:35)
--- NOTE | 2018-06-19 12:02 | PN ---
Date of Service: 06/19/18 Critical Care Services: Patient had an uneventful evening. LP yesterday shows elevated protein with a few RBCs and WBCs - ? significance. Vital Signs: Temp Pulse Resp BP SpO2 FiO2 99.7 F 107 26 156/89 95 30 Physical Exam: Gen:Awake - has slurred speech intermittently, but is oriented x3. HEENT: No facial asymmetry Lungs: Occasional rhonchi Extremities: Trace edema. No cyanosis. Missing toes as reported previously. Neuro: Moves all extremities equally. Continues to have left-sided neglect ( visually). Fluid Balance (Past 24 Hours): 06/19/18 06:59 Intake Total 1019 Output Total 1780 Balance -761 Weight 273 lb Intake: IV Fluids 94 NS (0.9%) 94 IVPB 775 Acyclovir 775 Medicated IV 150 CC - Nicarpidine/Cardene CC - Propofol/Diprivan 150 Oral Output: Urine 100 Castellanos 1680 Other: Estimated Void # Voids Labs: 06/16/18 06/16/18 06/17/18 21:59 21:59 04:50 ESR PT 11.5 INR 1.0 Lupus Anticoag aPTT 26 dRVVT Screen Ratio 0.9 Lupus Anticoag Interp See comment Protein C Activity 116 APC Resist (Factor V) 3.1 APC Resistance Interp See comment Protein S Activity 119 Antithrombin III Activ 94 POC Glucose (mg/dL) Fluid Source Fluid Volume Fluid Color Fluid Appearance Fluid WBC Fluid RBC Fluid Tot Cell Count Fluid Neutrophils Fluid Lymphocytes Fluid Monocytes Fluid Cell Count Rvw By Fluid Comment CSF Cell Count Tube # CSF Glucose CSF Total Protein Anti-Cardiolipin IgG Ab < 9.4 Anti-Cardiolipin IgM Ab < 9.4 06/18/18 06/18/18 06/18/18 07:44 15:50 15:50 ESR PT INR Lupus Anticoag aPTT dRVVT Screen Ratio Lupus Anticoag Interp Protein C Activity APC Resist (Factor V) APC Resistance Interp Protein S Activity Antithrombin III Activ POC Glucose (mg/dL) 205 H Fluid Source Cerebral spinal Fluid Volume 3 Fluid Color Colorless Fluid Appearance Clear Fluid WBC 1.5 Fluid RBC 132 Fluid Tot Cell Count 100 Fluid Neutrophils 13 Fluid Lymphocytes 71 Fluid Monocytes 16 Fluid Cell Count Rvw By Fluid Comment CSF Cell Count Tube # 4 CSF Glucose 135 H CSF Total Protein 68 H Anti-Cardiolipin IgG Ab Anti-Cardiolipin IgM Ab 06/18/18 06/18/18 06/19/18 17:31 20:39 03:50 ESR 19 H PT INR Lupus Anticoag aPTT dRVVT Screen Ratio Lupus Anticoag Interp Protein C Activity APC Resist (Factor V) APC Resistance Interp Protein S Activity Antithrombin III Activ POC Glucose (mg/dL) 215 H 171 H Fluid Source Fluid Volume Fluid Color Fluid Appearance Fluid WBC Fluid RBC Fluid Tot Cell Count Fluid Neutrophils Fluid Lymphocytes Fluid Monocytes Fluid Cell Count Rvw By Fluid Comment CSF Cell Count Tube # CSF Glucose CSF Total Protein Anti-Cardiolipin IgG Ab Anti-Cardiolipin IgM Ab Studies: None today. Nutrition: Consistent Carb Diet Impression: Clinically unchanged - still no clear etiology of the neurologic deficits in this case. Plan: Further evaluation per neurology service. Await results of CSF serologies and cultures. Continue empiric Rx of presumed meningoencephalitis for now.
[2018-06-19] MEDS: Insulin GLARGINE(*) 1 UNITS UNIT SUBCUT SCH (12:11)
--- NOTE | 2018-06-19 14:46 | PN ---
CONTINUATION ADDENDUM NOW INCLUDED ON THIS REPORT NEUROLOGY FOLLOWUP NOTE: DATE OF FOLLOWUP: 06/19/18 LOCATION: He is an inpatient in ICU bed 3. 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 CHIEF COMPLAINT: Left-sided weakness. INTERVAL HISTORY: Since yesterday, Michael is doing considerably better. According to Dr. Rodriguez, he was still pretty weak on the left side and neglectful of his left side earlier today. His exam is as below, but he is clearly improved. He says that he feels better. He was trying to get up and walk, but then when asked, he is aware that his left side is "a little weak." MEDICATIONS: Reviewed and he is on: 1. Doxycycline 100 mg IV q.12 hours. 2. Acyclovir as directed by pharmacy. 3. Heparin 5000 units subcutaneous q.8 hours. 4. Insulin sliding scale. 5. Lisinopril 40 mg p.o. daily. 6. Metoprolol IV 5 mg q.6 hours as needed blood pressure parameters. PHYSICAL EXAM: He is awake and alert. Most recent temperature 99.9 temporally ; it was 100 later last night, blood pressure 138/90, heart rate is in the 90s. CONTINUATION ADDENDUM: PHYSICAL EXAMINATION: On examination, he is well nourished and awake. Most recent temperature 99.9, blood pressure is 123/80, heart rate is in the 90s and regular. Neurological exam, he has some mild left facial weakness. He has a minimal dysarthria. Sensory exam, he reports intact sensation to light touch on the face on both sides as well as the hands. He has a mild left pronator drift but uses the left hand purposefully and to command. Language is fluent. He remembers me and recalls my name. Visual samson seem full to double simultaneous stimulation today. DIAGNOSTIC STUDIES/LAB DATA: Includes a spinal fluid from yesterday notable for 1.5 white blood cells per cubic mm, 132 red blood cells. Glucose was elevated at 135 but simultaneous glucose was around 215 yesterday afternoon, so it is normal. Spinal fluid protein is modestly elevated at 68. Other laboratory data is mainly all pending. There are a number of spinal fluid studies pending and also a CBC and chemistry profile from today that is pending. IMPRESSION: Michael is improved in terms of his right hemisphere syndrome. Etiology remains still completely uncertain to me. I do not think he had an ischemic event and his EEG from yesterday revealed some generalized slowing but no focal or epileptiform discharges. I would not expect a postictal neurological deficit to have lasted this long and when he was first evaluated by Dr. Monsivais in the emergency room, he was lucid and able to provide history. His MRI was interpreted as normal but I question whether there might have been some increased signal on FLAIR images in the right temporoparietal cortex. I may repeat his MRI in the future with contrast, especially if he deteriorates. I will continue acyclovir for now until his PCR for herpes virus comes back, and I will continue doxycycline at least until his Lyme screen comes back. I will continue to follow him. [id number]/[facility] #: [id number] Jaime- [id number]/[facility] #: [id number] SADIE
--- NOTE | 2018-06-19 15:21 | CONS ---
NEUROLOGY PROGRESS NOTE: ADDENDUM: DATE OF FOLLOWUP NOTE: 06/19/18 LOCATION: He is in ICU bed 3. PHYSICAL EXAMINATION: On examination, he is well nourished and awake. Most recent temperature 99.9, blood pressure is 123/80, heart rate is in the 90s and regular. Neurological exam, he has some mild left facial weakness. He has a minimal dysarthria. Sensory exam, he reports intact sensation to light touch on the face on both sides as well as the hands. He has a mild left pronator drift but uses the left hand purposefully and to command. Language is fluent. He remembers me and recalls my name. Visual samson seem full to double simultaneous stimulation today. DIAGNOSTIC STUDIES/LAB DATA: Includes a spinal fluid from yesterday notable for 1.5 white blood cells per cubic mm, 132 red blood cells. Glucose was elevated at 135 but simultaneous glucose was around 215 yesterday afternoon, so it is normal. Spinal fluid protein is modestly elevated at 68. Other laboratory data is mainly all pending. There are a number of spinal fluid studies pending and also a CBC and chemistry profile from today that is pending. IMPRESSION: Michael is improved in terms of his right hemisphere syndrome. Etiology remains still completely uncertain to me. I do not think he had an ischemic event and his EEG from yesterday revealed some generalized slowing but no focal or epileptiform discharges. I would not expect a postictal neurological deficit to have lasted this long and when he was first evaluated by Dr. Monsivais in the emergency room, he was lucid and able to provide history. His MRI was interpreted as normal but I question whether there might have been some increased signal on FLAIR images in the right temporoparietal cortex. I may repeat his MRI in the future with contrast, especially if he deteriorates. I will continue acyclovir for now until his PCR for herpes virus comes back, and I will continue doxycycline at least until his Lyme screen comes back. I will continue to follow him. [id number]/[facility] #: [id number] SADIE
[2018-06-19 15:40] LABS: Prothrombin 20210 Mutation Negative (Negative)
[2018-06-20] MEDS: Insulin GLARGINE(*) 1 UNITS UNIT SUBCUT SCH ×2 (00:28→11:36)
[2018-06-20] MEDS: DOXYcycline IV* 100 MG in NS 0.9% 250 ML* 250 ML IVPB SCH ×2 (02:39→16:06)
[2018-06-20] MEDS: Heparin VIAL(*) 5000 UNITS/ML VIAL (FIVE THOUSAND) SUBCUT SCH ×3 (05:11→21:50)
[2018-06-20] MEDS: Acyclovir IV(*) 800 MG in NS 0.9% 250 ML* 250 ML IVPB SCH ×3 (05:22→21:58)
[2018-06-20 05:40] LABS: Hematocrit 42 % (42-52); Hemoglobin 13.9 g/dl (14.0-18.0); Mean Corpuscular HGB Conc 33 g/dl (31-36); Mean Corpuscular Hemoglobin 29 pg (27-31); Mean Corpuscular Volume 85 fL (80-94); Mean Platelet Volume 7.8 fL (7.4-10.4); Platelet Count 265 10^3/ul (150-450); Red Blood Count 4.88 10^6/ul (4.00-5.40); Red Cell Distribution Width 14 % (10.5-15); White Blood Count 11.3 10^3/ul (3.5-10.8)
[2018-06-20 05:50] LABS: BUN/Creatinine Ratio 18.6 (8-20); Calcium 8.6 mg/dL (8.6-10.3); EGFR Non-African American 82.6 (>60); Potassium 3.8 mmol/L (3.5-5.0)
[2018-06-20] MEDS: Insulin LISPRO* 1 UNITS UNIT SUBCUT SCH ×4 (08:01→21:49)
[2018-06-20] MEDS: amLODIPine TAB* 5 MG PO SCH (08:01)
[2018-06-20] MEDS: Lisinopril TAB* 10 MG PO SCH (08:01)
[2018-06-20] MEDS ORDERED: Acetaminophen TAB* 325 MG PO PRN (09:21)
[2018-06-20 16:58] LABS: CSF VDRL Negative (Negative)
--- NOTE | 2018-06-20 18:14 | PN ---
Subjective Date of Service: 06/20/18 Interval History: Pt is a 47yom who is admitted for headaches and L sided weakness. He has trouble recalling what happened prior to his admission and relies on his girlfriend, who is not present, to fill in information. From what he remembers , he was experiencing such an intense headache that he was unable to concentrate and found himself walking into [facility]. He recalls a time when he had fallen out of bed, and couldn't explain why. He states that this occurred over a few days prior to seeking medical attention. Since Sunday, the patient states he has started to feel better every day. Yesterday he walked a short distance, and today he walked the halls; he felt steady on his feet. He had a headache this morning, which he treated with tylenol and coffee, and it went away. He states that the headache was nothing like his previous ones. He does state that the left side of his lower lip is numb; he denies numbness elsewhere. Family History: Findings - mother in 60s of pancreatic cancer, father unknown Social History: Findings - Single, disabled, lives alone, smokes 1PPD, down from 4PPD, rare EtOH, unknown drug use Past Medical History: Findings - Type 2 DM, HTN, gout, PAD, h/o osteomyelitis, chronic foot ulcer; PSH LT great toe amp, RT transmetatarsal amp Objective Active Medications: Acetaminophen (Tylenol Tab*) 650 mg PO Q6H PRN PRN Reason: PAIN Last Admin: 06/20/18 10:03 Dose: 650 mg Amlodipine Besylate (Norvasc Tab*) 5 mg PO DAILY EFRAIN Last Admin: 06/20/18 08:01 Dose: 5 mg Heparin Sodium (Porcine) (Heparin Vial(*)) 5,000 units SUBCUT Q8HR EFRAIN Last Admin: 06/20/18 13:58 Dose: Not Given Heparin Sodium (Porcine) (Heparin Flush Picc/Ml/Cvc(*)) 1 - 3 ml FLUSH 0600, 1800 EFRAIN; Protocol Last Admin: 06/20/18 17:43 Dose: 3 ml Nicardipine/Sodium Chloride (Cardene 0.1mg/Ml Ivpremix*) 20 mg in 200 mls @ 0 mls/hr IV .(as Initial Rate) EFRAIN; Protocol Last Admin: 06/17/18 09:12 Dose: 5 mls/hr Acyclovir Sodium 800 mg/ (Sodium Chloride) 266 mls @ 266 mls/hr IVPB Q8H [facility] Last Admin: 06/20/18 13:58 Dose: 266 mls/hr Doxycycline Hyclate 100 mg/ (Sodium Chloride) 250 mls @ 250 mls/hr IVPB Q12H [facility] Last Admin: 06/20/18 16:06 Dose: 250 mls/hr Insulin Glargine (Lantus(*)) 15 units SUBCUT Q12H [facility] Last Admin: 06/20/18 11:36 Dose: 15 units Insulin Human Lispro (Humalog*) 0 units SUBCUT ACHS [facility]; Protocol Last Admin: 06/20/18 16:30 Dose: 3 units Ketorolac Tromethamine (Toradol Inj*) 30 mg IV PUSH Q6H PRN PRN Reason: PAIN Last Admin: 06/17/18 02:16 Dose: 30 mg Lisinopril (Prinivil Tab*) 40 mg PO DAILY [facility] Last Admin: 06/20/18 08:01 Dose: 40 mg Metoprolol Tartrate (Lopressor Iv*) 5 mg IV Q6H PRN PRN Reason: BLOOD PRESSURE Last Admin: 06/17/18 06:37 Dose: 5 mg Vital Signs: Temp Pulse Resp BP Pulse Ox 98.8 F 90 16 145/76 95 06/20/18 15:23 06/20/18 15:23 06/20/18 15:23 06/20/18 15:23 06/20/18 15:23 Oxygen Devices in Use Now: None Appearance: Pt is sitting up in bed. He is in no acute distress. He appears comfortable and is cooperative and talkative. Eyes: No Scleral Icterus, PERRLA Ears/Nose/Mouth/Throat: NL Teeth, Lips, Gums, Clear Oropharnyx, Mucous Membranes Moist Neck: NL Appearance and Movements; NL JVP, Trachea Midline Respiratory: Symmetrical Chest Expansion and Respiratory Effort, - - Decreased breath sounds due to body habitus Cardiovascular: NL Sounds; No Murmurs; No JVD, RRR, No Edema Abdominal: NL Sounds; No Tenderness; No Distention, No Hepatosplenomegaly Extremities: No Edema, No Clubbing, Cyanosis Neurological: Alert and Oriented x 3, NL Sensation, NL Gait, NL Muscle Strength and Tone Result Diagrams: 06/20/18 05:20 06/20/18 05:20 Additional Lab and Data: Lab Results 06/16/18 06/16/18 06/16/18 Range/Units 12:17 12:46 12:46 WBC 17.1 H (3.5-10.8) 10^3/ul RBC 6.02 H (4.00-5.40) 10^6/ul Hgb 17.2 (14.0-18.0) g/dl Hct 51 (42-52) % MCV 85 (80-94) fL MCH 29 (27-31) pg MCHC 34 (31-36) g/dl RDW 14 (10.5-15) % Plt Count 367 (150-450) 10^3/ul MPV 7.5 (7.4-10.4) fL Neut % (Auto) 81.4 % Lymph % (Auto) 12.3 % [facility] % (Auto) 5.2 % Eos % (Auto) 0.5 % Baso % (Auto) 0.6 % Absolute Neuts (auto) 13.9 H (1.5-7.7) 10^3/ul Absolute Lymphs (auto) 2.1 (1.0-4.8) 10^3/ul Absolute Monos (auto) 0.9 H (0-0.8) 10^3/ul Absolute Eos (auto) 0.1 (0-0.6) 10^3/ul Absolute Basos (auto) 0.1 (0-0.2) 10^3/ul Absolute Nucleated RBC 0 10^3/ul Nucleated RBC % 0 Sodium 136 (135-145) mmol/L Potassium 4.4 (3.5-5.0) mmol/L Chloride 99 L (101-111) mmol/L Carbon Dioxide 27 (22-32) mmol/L Anion Gap 10 (2-11) mmol/L BUN 15 (6-24) mg/dL Creatinine 1.03 (0.67-1.17) mg/dL Est GFR ( Amer) 93.3 (>60) Est GFR (Non-Af Amer) 77.1 (>60) BUN/Creatinine Ratio 14.6 (8-20) Glucose 261 H (70-100) mg/dL POC Glucose (mg/dL) 236 H (70-100) mg/dL Lactic Acid (0.5-2.0) mmol/L Calcium 10.0 (8.6-10.3) mg/dL Magnesium 1.5 L (1.9-2.7) mg/dL Total Bilirubin 0.60 (0.2-1.0) mg/dL AST 14 (13-39) U/L ALT 17 (7-52) U/L Alkaline Phosphatase 79 (34-104) U/L Total Creatine Kinase 83 (10-223) U/L Troponin I 0.01 (<0.04) ng/mL C-Reactive Protein 6.21 (<8.01) mg/L B-Natriuretic Peptide (<=100) pg/mL Total Protein 7.9 (6.4-8.9) g/dL Albumin 4.6 (3.2-5.2) g/dL Globulin 3.3 (2-4) g/dL Albumin/Globulin Ratio 1.4 (1-3) TSH Pending 06/16/18 06/16/18 Range/Units 12:46 12:46 WBC (3.5-10.8) 10^3/ul RBC (4.00-5.40) 10^6/ul Hgb (14.0-18.0) g/dl Hct (42-52) % MCV (80-94) fL MCH (27-31) pg MCHC (31-36) g/dl RDW (10.5-15) % Plt Count (150-450) 10^3/ul MPV (7.4-10.4) fL Neut % (Auto) % Lymph % (Auto) % [facility] % (Auto) % Eos % (Auto) % Baso % (Auto) % Absolute Neuts (auto) (1.5-7.7) 10^3/ul Absolute Lymphs (auto) (1.0-4.8) 10^3/ul Absolute Monos (auto) (0-0.8) 10^3/ul Absolute Eos (auto) (0-0.6) 10^3/ul Absolute Basos (auto) (0-0.2) 10^3/ul Absolute Nucleated RBC 10^3/ul Nucleated RBC % Sodium (135-145) mmol/L Potassium (3.5-5.0) mmol/L Chloride (101-111) mmol/L Carbon Dioxide (22-32) mmol/L Anion Gap (2-11) mmol/L BUN (6-24) mg/dL Creatinine (0.67-1.17) mg/dL Est GFR ( Amer) (>60) Est GFR (Non-Af Amer) (>60) BUN/Creatinine Ratio (8-20) Glucose (70-100) mg/dL POC Glucose (mg/dL) (70-100) mg/dL Lactic Acid 2.1 H* (0.5-2.0) mmol/L Calcium (8.6-10.3) mg/dL Magnesium (1.9-2.7) mg/dL Total Bilirubin (0.2-1.0) mg/dL AST (13-39) U/L ALT (7-52) U/L Alkaline Phosphatase (34-104) U/L Total Creatine Kinase (10-223) U/L Troponin I (<0.04) ng/mL C-Reactive Protein (<8.01) mg/L B-Natriuretic Peptide 36 (<=100) pg/mL Total Protein (6.4-8.9) g/dL Albumin (3.2-5.2) g/dL Globulin (2-4) g/dL Albumin/Globulin Ratio (1-3) TSH Microbiology and Other Data: Microbiology 06/16/18 13:47 Influenza Types A,B Antigen - Final Nasal Specimen received for Influenza A/B Molecular testing Diagnostic Imaging: CT brain: no infarct CTA head/neck: no occlusion/stenosis CXR: no infiltrates EKG Data: NSR, left axis, Q waves V1-V4, old AMI Assess/Plan/Problems-Billing Assessment: 47 year old man w PMHx DMII, HTN, gout, PAD, h/o osteomyelitis presents with headaches and L sided weakness. - Patient Problems (1) Headache Current Visit: Yes Status: Acute Priority: Medium Code(s): R51 - HEADACHE SNOMED Code(s): 83905156 Comment: -TRAVIS and R hemisphere symptoms have subsided; pt had TRAVIS today that went away with tylenol and he has no L sided weakness -Continue to await test results (2) Type II diabetes mellitus Comment: -Patient eating well; BS in low 100's with lunchtime level of 351 -15U Lantus, and cover w/ sliding scale Humalog (3) HTN (hypertension) Comment: -BP controlled -Continue metoprolol, lisinopril, amlodipine, nicardipine (4) DVT prophylaxis Comment: -SQ heparin (5) Full code status Status and Disposition: Inpatient. Discharge once stable.
[2018-06-21] MEDS: Insulin GLARGINE(*) 1 UNITS UNIT SUBCUT SCH ×2 (00:15→12:06)
[2018-06-21 01:11] LABS: HSV 1 PCR, CSF Negative (Negative); HSV 2 PCR, CSF Negative (Negative)
[2018-06-21] MEDS: DOXYcycline IV* 100 MG in NS 0.9% 250 ML* 250 ML IVPB SCH ×2 (02:36→14:33)
[2018-06-21] MEDS: Acyclovir IV(*) 800 MG in NS 0.9% 250 ML* 250 ML IVPB SCH ×2 (04:41→14:33)
[2018-06-21] MEDS: Heparin VIAL(*) 5000 UNITS/ML VIAL (FIVE THOUSAND) SUBCUT SCH ×2 (05:56→14:08)
[2018-06-21 07:55] VITALS: BP 156/61
[2018-06-21] MEDS: Lisinopril TAB* 10 MG PO SCH (08:42)
[2018-06-21] MEDS: amLODIPine TAB* 5 MG PO SCH (08:42)
[2018-06-21] MEDS: Insulin LISPRO* 1 UNITS UNIT SUBCUT SCH ×2 (08:43→12:06)
[2018-06-21 10:13] LABS: ABS Basophils 0.1 10^3/ul (0-0.2); ABS Eosinophils 0.2 10^3/ul (0-0.6); ABS Lymphocytes 2.3 10^3/ul (1.0-4.8); ABS Monocytes 0.8 10^3/ul (0-0.8); ABS Neutrophils 5.7 10^3/ul (1.5-7.7); ABS Nucleated RBC 0 10^3/ul; Eosinophil % 2.6 %; Hematocrit 37 % (42-52); Hemoglobin 12.5 g/dl (14.0-18.0); Lymphocyte % 25.5 %; Mean Corpuscular HGB Conc 34 g/dl (31-36); Mean Corpuscular Hemoglobin 29 pg (27-31); Mean Corpuscular Volume 85 fL (80-94); Mean Platelet Volume 7.5 fL (7.4-10.4); Nucleated Red Blood Cells % 0.1; Platelet Count 257 10^3/ul (150-450); Red Blood Count 4.39 10^6/ul (4.00-5.40); Red Cell Distribution Width 14 % (10.5-15); White Blood Count 9.1 10^3/ul (3.5-10.8)
[2018-06-21 12:14] LABS: Cyclic Citrullinated Pept IgG <15.6 U
--- NOTE | 2018-06-21 15:46 | PN ---
NEUROLOGY FOLLOWUP NOTE: DATE OF FOLLOWUP VISIT: 06/21/18 HOSPITALIST: MARISA Akers. LOCATION: He is an inpatient, room 449. CHIEF COMPLAINT: Left-sided weakness. INTERVAL HISTORY: Since yesterday, Michael feels well. He has been up walking around. He does not have any headache. He does not remember the first 2 days of his hospitalization. He denies visual problems or weakness on either side. MEDICATIONS: Are reviewed. He remains on: 1. Doxycycline 100 mg IV q.12 hours. 2. Acyclovir dosing managed by pharmacy. 3. Lisinopril 40 mg p.o. daily. 4. Heparin 5000 units subcutaneous q.8 hours. 5. Sliding scale insulin. 6. Nicardipine p.r.n. 7. Amlodipine 5 mg p.o. daily. PHYSICAL EXAMINATION: On exam, he is well nourished and well hydrated. Temperature 98.1, blood pressure running in the 150s/60s, heart rate in the 70s and 80s and regular, respiratory rate is 16, and oxygen saturation is 98% on room air. Neurologic Exam: Eye movements are normal. Visual samson are full to confrontation. Facial musculature is symmetric. Speech is clear without dysarthria. Motor exam reveals good strength in the upper extremities without drift. Finger taps are normal in the hands. [id number] maneuver is normal bilaterally. He is alert and conversant with fluent language. Memory is intact for recent events, except for the first couple of days of his hospitalization. LABORATORY DATA: Since yesterday, notable for negative HSV1 and HSV2 PCR, negative Lyme serologies, negative Lyme spinal fluid antibodies, nonreactive HIV -1 and HIV-2. West Nile virus is pending. CBC notable for normalization of his white blood cell count to 9.1, mild anemia with hemoglobin of 12.5. Paraneoplastic antibodies in serum and spinal fluid are pending. He had a negative CCP, CASSANDRA, myeloperoxidase antibody, and proteinase 3 antibodies. IMPRESSION: Right middle cerebral artery syndrome, which is resolved. Etiology is unclear, but there is no evidence to suggest a cerebrovascular event. My suspicion is he might have had 1 or several seizures. They were unobserved and left him with a Clarke postictal paralysis type syndrome. I would have to hypothesize that he had more than 1 seizure including in the times he was sleeping while still here in the hospital. Given the lack of certainty, I do not recommend anticonvulsants. At this time, there is no evidence of a central nervous system infection and I think doxycycline and acyclovir can be stopped. I think he could be discharged to home. I plan to see him in followup in my office in 3 to 4 weeks. He and his know to call me sooner if he has any recurrent events. [id number]/[facility]PS #: [id number] SADIE
[2018-06-21 16:42] LABS: CSF West Nile Virus RNA (PCR) Negative (Negative); West Nile Virus Source CSF
--- NOTE | 2018-06-21 20:16 | DS ---
DISCHARGE SUMMARY: DATE OF ADMISSION: 06/16/18 DATE OF DISCHARGE: 06/21/18 PRIMARY CARE PROVIDER: Dr. Jim Strong. OTHER PROVIDER: Dr. Rakesh Avila. ATTENDING PHYSICIAN: Dr. Wali Bundy.* (DICTATED BY MARISA BILLINGS) PRIMARY DIAGNOSES: 1. Headache. 2. Left-sided weakness. SECONDARY DIAGNOSES: 1. Diabetes mellitus type 2. 2. Hypertension. 3. Peripheral artery disease. 4. Gout. 5. History of osteomyelitis, chronic foot ulcer. STUDIES WHILE IN THE HOSPITAL: Chest x-ray, 06/16/18, impression: No active cardiopulmonary disease. Brain CT, 06/16/18, impression: No acute intracranial pathology. Head CTA, 06/16/18, impression: Atheromatous disease. No internal carotid artery stenosis by NASCET criteria. No aneurysm, vascular malformation, occlusion, or stenosis of the visualized intracranial circulation. Transthoracic echocardiogram, 06/16/18, conclusion: [id number] concentric left ventricular hypertrophy is observed. Global left ventricular wall motion and contractility are within normal limits. There is normal left ventricular systolic function. The estimated ejection fraction is 55% to 60%. A patent foramen ovale is not demonstrated with color Doppler and agitated contrast. There is mild thickening of the left coronary cusp. There is a trace of aortic regurgitation. There is a trace of mitral regurgitation. There is a trace of tricuspid regurgitation. Unable to estimate the right ventricular systolic pressure. There is no significant pericardial effusion. Brain CT from 06/17/18, impression: Study is degraded by motion artifact. No intracranial hemorrhage. No venous mass effect. Decreased density in the anteromedial aspect of the right cerebellar hemisphere. The significance of this observation is unclear. It could represent area of ischemia or represent motion artifact. Brain CT, 06/17/18, impression: No evidence for acute or subacute ischemia at the posterior or anterior circulation white matter, lesions at the periventricular white matter of the cerebral hemispheres and the left paramedian nayeli may represent small vessel ischemic disease or demyelination lesions in the correct clinical context, negative for mass effect, mild right mastoid effusion. DISCHARGE MEDICATIONS: Home medications: 1. Metformin 1000 mg p.o. 0800 and 1700. 2. Tramadol 50 mg 1 to 2 tabs p.o. q.6 hours p.r.n. 3. Lisinopril 40 mg p.o. daily. 4. Levemir FlexTouch 30 units subcutaneous b.i.d. 5. Indomethacin 50 mg p.o. t.i.d. 6. Dulaglutide 1.5 mg subcu weekly. 7. Colchicine 0.6 mg p.o. daily. 8. Amlodipine 5 mg p.o. daily. HISTORY OF PRESENT ILLNESS/HOSPITAL COURSE: Mr. Medrano is a 47-year-old male with a past medical history as described above, who presented to the ER on 06/16 with complaints of "the worst headache of my life." He states that he has had a headache for approximately 2 days that is located behind the right eye. He had difficulty recalling much of the story. He denies nausea, vomiting, and left- sided weakness. He states he could not control his left arm. It was suspected that he may have had a stroke, so Neurology was consulted. The patient states that in the days prior to his presentation at the ER, he continued to have a headache that caused him so much pain that he was unable to concentrate on where he was walking and would often run into things. He states he often felt confused and had trouble remembering things. To this day, the patient states that he has trouble recalling the first part of his hospitalization and relies on his girlfriend to help with recall. In the ER, a full workup was done. There was initially concern that the patient had posterior circulation stroke and MRI was ordered. Blood pressure was maintained between 160 and 170 systolic, permissive hypertension. The patient was found to have severe claustrophobia and could not withstand an MRI. He continued to have left-sided weakness and excruciating headaches. Options were discussed with the patient and it was decided that he would be intubated in order to obtain an MRI to get a clear picture of the events. The patient was successfully intubated and an MRI was performed and showed likely chronic small vessel disease, but no evidence of acute ischemia. The patient was extubated the following day. Concern was raised that the patient may have encephalitis. EEG and lumbar puncture were ordered and he was started on acyclovir. Other studies were sent out as well including Lyme disease, serum and spinal fluid, PCR for HSV-1 and 2, West Nile virus antibody and PCR, spinal fluid VDRL, cryptococcal antigen and spinal fluid and studies for vasculitides and paraneoplastic antibodies on spinal fluid and serum. EEG was performed on 06/18/18. Clinical impression was that of a mildly abnormal EEG due to slowing and disorganization of background rhythms and excessive sleepiness. There are no focal or epileptiform features to this recording. Lumbar puncture was also performed. All the while, the patient continued to have slurred speech and left -sided neglect. He continued treatment with acyclovir and doxycycline. On the final day of his inpatient stay in ICU, the patient started to improve. Etiology was still unclear. EEG revealed generalized slowing, but no focal or epileptiform discharges. The patient was transferred to the medical floor from the intensive care unit. The following day, he admits to feeling considerably better than he had throughout his entire stay. He states that for the past 2 days he started to feel better every day. He had been able to walk the halls. He did admit to a headache in the morning, which was relieved with Tylenol and coffee. He is no longer experiencing any left-sided weakness or other neurological deficits. His only complaint is that the left side of the lower lip is numb. He denies numbness elsewhere. The following day he is stable for discharge to home. Thus far, all of his studies have come back negative. West Nile and cryptococcus as well as the paraneoplastic and vasculitide studies are still pending. At the time of discharge, the patient denies chest pain, cough, fever, shortness of breath, headache, abdominal pain, nausea, vomiting, diarrhea , constipation. He denies pain in the lower extremities or upper extremities. He denies calf tenderness and lower extremity edema. He denies neurological deficit, but continues to have left lower lip numbness. Mr. Medrano is stable for discharge home. PHYSICAL EXAMINATION: Vital signs are temperature is 98.1 orally, heart rate is 81, respiratory rate is 16, oxygen saturation is 98% on room air, blood pressure is 156/61. General: Mr. Medrano is a well-developed, well-nourished, obese, white middle-aged man, who is sitting up in a chair, in no acute distress. He appears his stated age. HEENT: Visual samson are grossly intact. His pupils are equally round and reactive to light and accommodation. His extraocular movements are intact. Sclerae without icterus. Hearing is grossly intact. Oral mucous membranes are moist and without lesion. Pharynx is clear. Neck with full range of motion. His trachea is at midline. He has no cervical lymphadenopathy. Respiratory: Symmetrical chest expansion with no use of accessory muscles. Lung sounds are diminished due to body habitus, but are clear to auscultation with no rhonchi, wheezes, or rales. Cardiovascular: Regular rate and rhythm. S1, S2 present. No murmurs, rubs, or gallops. No JVD. Abdomen: Bowel sounds in all quadrants. The abdomen is obese, soft, and nontender to palpation. There is no hepatosplenomegaly. Musculoskeletal: There is full range of motion. No pain or deformities. Extremities: Skin is warm and smooth bilaterally. There is no edema. No clubbing or cyanosis. Radial pulses 2+ bilaterally. Pedal pulses 1+ bilaterally. It is noted that the patient has a partial amputation of the right foot and a left great toe amputation. He also has a small ulcer on the right foot. Neuro: Awake, alert, and oriented x3. Cranial nerves II through XII are grossly intact. He is able to move all of his extremities. His motor strength is 5/5 in the upper and lower extremities bilaterally. He has a steady gait with no impairment. DISCHARGE PLAN: Mr. Medrano will be discharged home. ACTIVITY: As tolerated. DIET: Heart-healthy, diabetic diet. MEDICATIONS: As above. EDUCATION: 1. Follow up with primary care physician in 4 to 7 days, discuss recent hospitalization. 2. Follow up with Dr. Avila in 3 to 4 weeks, discuss results of pending laboratory tests. 3. Do not drive until office visit with Dr. Avila. 4. Repeat H and H in 3 to 5 days due to slow decrease in hemoglobin and hematocrit throughout hospitalization, likely due to phlebotomy. A prescription for this lab draw was given to the patient. 5. Return to the ER or nearest hospital if you experience any worsening of symptoms, shortness of breath, lightheadedness, dizziness, chest discomfort, high fevers, chills, night sweats, loss of consciousness or any other worrisome signs or symptoms. This is a summarized report of a complex medical history and hospital stay. For further details, please see the entire medical record. TIME SPENT: Approximately 40 minutes was spent on this discharge, greater than half of that time was spent [id number] with the patient discussing discharge plans and instructions. MARISA BILLINGS [id number]/[facility] #: [id number] [facility] HOSPITALOliver
[2018-06-24 16:24] LABS: CSF West Nile Virus IgG Ab Negative (Negative); CSF West Nile Virus IgM Ab Negative (Negative)
[2018-06-28 09:49] LABS: Anti-Glial/Neuronal Nuc Ab-1 A Negative titer (<1:240); Anti-Neuronal Nuclear Ab Type1 Negative titer (<1:240); Anti-Neuronal Nuclear Ab Type2 Negative titer (<1:240); Anti-Neuronal Nuclear Ab Type3 Negative titer (<1:240); Anti-Striated Muscle Antibody Negative titer (<1:120); CRMP-5 IgG Antibody Negative titer (<1:240); Purkinje Cell Cytoplasm Typ Tr Negative titer (<1:240); Purkinje Cell Cytoplasm Type 1 Negative titer (<1:240); Purkinje Cell Cytoplasm Type 2 Negative titer (<1:240)
[2018-07-01 13:16] LABS: Anti-Glial/Neuronal Nuc Ab-1 A Negative titer (<1:240); Anti-Neuronal Nuclear Ab Type1 Negative titer (<1:240); Anti-Neuronal Nuclear Ab Type2 Negative titer (<1:240); Anti-Neuronal Nuclear Ab Type3 Negative titer (<1:240); Anti-Striated Muscle Antibody Negative titer (<1:120); CRMP-5 IgG Antibody Negative titer (<1:240); Purkinje Cell Cytoplasm Typ Tr Negative titer (<1:240); Purkinje Cell Cytoplasm Type 1 Negative titer (<1:240); Purkinje Cell Cytoplasm Type 2 Negative titer (<1:240)
== END 2018-06-21 15:00 | disposition home or self-care (01) | DRG 69 ==
LOC: ED 11:47 → ICU 21:09 → MEDTELE 06-19 16:21
PROVIDERS: ADMIT Internal Medicine; ATTEND Student in an Organized Health Care Education/Training Program
PROC: 0BH18EZ Insertion of Endotracheal Airway into Trachea, Via Natural or Artificial Opening Endoscopic (ICD-10-PCS; 2018-06-16)
PROC: 009U3ZX Drainage of Spinal Canal, Percutaneous Approach, Diagnostic (ICD-10-PCS; principal; 2018-06-18)
DX: G46.0 Middle cerebral artery syndrome (principal); F40.240 Claustrophobia; E11.65 Type 2 diabetes mellitus with hyperglycemia; R29.706 NIHSS score 6; L97.519 Non-pressure chronic ulcer of other part of right foot with unspecified severity; I10 Essential (primary) hypertension; F17.210 Nicotine dependence, cigarettes, uncomplicated; E11.51 Type 2 diabetes mellitus with diabetic peripheral angiopathy without gangrene; R40.2362 Coma scale, best motor response, obeys commands, at arrival to emergency department; R40.2132 Coma scale, eyes open, to sound, at arrival to emergency department; R40.2252 Coma scale, best verbal response, oriented, at arrival to emergency department; D72.829 Elevated white blood cell count, unspecified; E83.42 Hypomagnesemia; R11.2 Nausea with vomiting, unspecified; M10.9 Gout, unspecified; E11.42 Type 2 diabetes mellitus with diabetic polyneuropathy; H53.462 Homonymous bilateral field defects, left side; E87.8 Other disorders of electrolyte and fluid balance, not elsewhere classified; I67.2 Cerebral atherosclerosis; I08.3 Combined rheumatic disorders of mitral, aortic and tricuspid valves; F41.9 Anxiety disorder, unspecified; Z91.14 Patient's other noncompliance with medication regimen; Z98.41 Cataract extraction status, right eye; Z56.0 Unemployment, unspecified; Z80.0 Family history of malignant neoplasm of digestive organs; Z72.89 Other problems related to lifestyle; Z89.431 Acquired absence of right foot; Z89.432 Acquired absence of left foot; Z79.84 Long term (current) use of oral hypoglycemic drugs
CPT/HCPCS: 36415; 70450; 70496; 70498; 70551; 71045; 71046; 80048; 80053; 80061; 80307; 81003; 81015; 81240; 82550; 82945; 83516; 83519; 83520; 83605; 83735; 83880; 84157; 84443; 84484; 85025; 85027; 85300; 85303; 85306; 85307; 85610; 85613; 85652; 85730; 86038; 86140; 86147; 86200; 86255; 86256; 86592; 86618; 86703; 86788; 86789; 87040; 87086; 87529; 87641; 87798; 87899; 89051; 93005; 93306; 94002; 94003; 95816; 97530; 99285; 99406; A9270-GY; C1751; G8978-GP-CK; G8979-GP-CI; G8987-GO-CL; G8988-GO-CI; J0133; J0330; J0780; J1630; J1644; J1885; J2060; J2250; J2270; J2405; J2704; J3010; J3475; J3490; Q9967